=== PATIENT | female | born 1945 | race African-American/Black ===

== ENCOUNTER 2017-01-24 04:46 | Inpatient (IN) | payer MEDICARE ==
[~2017-01-24] VITALS: Ht 170.2 cm; Wt 99.8 kg
[~2017-01-24 04:46] MED LIST: ALBUTEROL2.5 MG/3 M INH; AZELASTINE137 MCG/0. NS; CARDIZEM CD180 MG ORAL; CARDIZEM60 MG ORAL; DILTIAZEM ER60 M1 ORAL; DULERA 200 MCG/13 GM IH; FLONASE1 SPRAYS NASAL; IBUPROFEN200 MG ORAL; NASONEX17 GM NASAL; PRAVACHOL20 MG ORAL; PRAVASTATIN SOD20 M1 ORAL; PREDNISONE10 MG ORAL; PROAIR HFA8.5 GM INH; RANITIDINE HCL150 MG ORAL; ROBITUSSIN COU118 M1 PO; SPIRIVA18 MCG INH
[2017-01-24 05:00] VITALS: BP 151/86
--- NOTE | 2017-01-24 05:07 | Emergency Room Report ---
History of Present Illness General Chief Complaint: Dizziness Source: Patient Present Illness HPI This is a 71-year-old female with a history of hypertension hyperlipidemia. She presents with chief complaint of dizziness. He felt unsteady on her feet. Onset for the last 8 hours. No fever or chills no nausea no vomiting. No focal deficit. This felt palpitation. Never had this problem before. No other complaint. Allergies: Coded Allergies: No Known Allergies (Unverified , 07/06/14) Patient History Past Medical History: see triage record, old chart reviewed Past Surgical History: other Pertinent Family History: none Social History: Denies: smoking Now: No Immunizations: other Reviewed Nursing Documentation: PMH: Agreed, PSxH: Agreed Nursing Documentation-PMH Past Medical History: No History, Except For Hx Cardiac Problems: No Hx Hypertension: Yes - High cholesterol Hx COPD: No Hx Diabetes: No Hx Cancer: No Hx Gastrointestinal Problems: No Hx Dialysis: No Hx Neurological Problems: No Hx Cerebrovascular Accident: No Hx Seizures: No Review of Systems Eye: Denies: blurred vision, eye pain ENT: Denies: ear pain, nose congestion, throat swelling Respiratory: Denies: cough, shortness of breath Cardiovascular: Denies: chest pain, palpitations Gastrointestinal: Denies: abdominal pain, diarrhea, nausea, vomiting Musculoskeletal: Denies: back pain, joint pain Skin: Denies: rash Neurological: Reports: dizziness, Denies: headache, numbness Endocrine: Denies: increased thirst, increased urine Hematologic/Lymphatic: Denies: easy bruising All Other Systems: negative except mentioned in HPI Physical Exam Vital Signs Date Time Temp Pulse Resp B/P Pulse Ox O2 Delivery O2 Flow Rate FiO2 01/24/17 04:53 98.4 93 23 151/86 99 Room Air vitals with hypertension Sp02 EP Interpretation: reviewed, normal General Appearance: well appearing, no apparent distress, alert Head: normocephalic, atraumatic Eyes: bilateral eye EOMI, bilateral eye PERRL ENT: hearing grossly normal, normal pharynx Neck: full range of motion, supple, no meningismus Respiratory: chest non-tender, lungs clear, normal breath sounds Cardiovascular #1: regular rate, rhythm, no murmur Gastrointestinal: normal bowel sounds, non tender, no mass, no organomegaly, no bruit, non-distended Musculoskeletal: back normal, gait/station normal, normal range of motion Psychiatric: mood/affect normal Skin: warm/dry Medical Decision Making Diagnostic Impression: Primary Impression: Atrial flutter, paroxysmal Additional Impression: Dizziness of unknown cause ER Course Patient presents with dizziness and palpitation. EKG showed paroxysmal atrial flutter. She is in sinus now. She felt better now. We'll admit for further workup. Lab Results Impression labs unremarkable EKG Diagnostic Results Rate: normal Rhythm: other - atrial flutter ST Segments: other - NSST changes Rhythm Strip Diag. Results EP Interpretation: yes Rate: 83 Rhythm: NSR, no PVC's, no ectopy Chest X-Ray Diagnostic Results EP Interpretation: Yes Findings: no consolidation, no effusion, no pneumothorax, no acute cardiopulmonary disease Number of Views: 1 CT/MRI/US Diagnostic Results CT/MRI/US Diagnostic Results : Imaging Test Ordered: Ct head Impression Read by radiologist. Neg. Last Vital Signs Date Time Temp Pulse Resp B/P Pulse Ox O2 Delivery O2 Flow Rate FiO2 01/24/17 04:53 98.4 93 23 151/86 99 Room Air Status: improved Disposition: ADMITTED INPATIENT Condition: Serious NOHEMI CRUM M.D. Jan 24, 2017 05:07
[2017-01-24 05:28] LABS: BASOPHILS % (AUTO) 1.9 % (0.0-2.0); LYMPHOCYTES % (AUTO) 48.4 % (20.0-45.0); MEAN CORPUSCULAR HGB CONC 32.4 G/DL (32.0-36.0); MEAN CORPUSCULAR VOLUME 93 FL (80-99); MEAN PLATELET VOLUME 7.6 FL (6.5-10.1); MONOCYTES % (AUTO) 4.8 % (1.0-10.0); NEUTROPHILS % (AUTO) 42.9 % (45.0-75.0); PLATELET COUNT 273 K/UL (150-450); RED BLOOD COUNT 5.21 M/UL (4.20-5.40); RED CELL DISTRIBUTION WIDTH 13.2 % (11.6-14.8); WHITE BLOOD COUNT 9.4 K/UL (4.8-10.8)
[2017-01-24 05:34] LABS: APPEARANCE,URINE CLEAR; KETONES,URINE NEGATIVE (NEGATIVE); LEUKOCYTE ESTERASE ,URINE NEGATIVE (NEGATIVE); NITRITE,URINE NEGATIVE (NEGATIVE); PH,URINE 7 (4.5-8.0); PROTEIN,URINE NEGATIVE (NEGATIVE); UROBILINOGEN,URINE NORMAL MG/DL (0.0-1.0)
[2017-01-24 05:48] LABS: TROPONIN I < 0.30 ng/mL (<=0.30)
[2017-01-24 05:49] LABS: ALANINE AMINOTRANSFERASE 20 U/L (3-33); ALBUMIN/GLOBULIN RATIO 1.3 (1.0-2.7); ANION GAP 16 (5-15); ASPARTATE AMINO TRANSFERASE 22 U/L (5-40); CALCIUM 9.1 mg/dL (8.6-10.2); CARBON DIOXIDE 26 mEQ/L (20-30); CHLORIDE 102 mEQ/L (98-107); CREATININE 0.9 mg/dL (0.5-0.9); GLOMERULAR FILTRATION RATE > 60 mL/min (>60); HEMOLYSIS 40; POTASSIUM 3.7 mEQ/L (3.4-4.9); SODIUM 144 mEQ/L (135-145); TOTAL PROTEIN 6.8 g/dL (6.6-8.7)
[2017-01-24 07:01] VITALS: BP 140/73
[2017-01-24] MEDS ORDERED: Diltiazem 25mg/5ml IV PRN (07:15)
[2017-01-24] MEDS ORDERED: Metoprolol 5mg/5ml Inj IVP PRN (07:15)
[2017-01-24] MEDS ORDERED: Morphine Sulfate 2mg/ml Inj IVP PRN (07:15)
[2017-01-24] MEDS ORDERED: Enalaprilat 2.5mg/2ml Inj IV PRN (07:15)
[2017-01-24] MEDS ORDERED: Miralax 17gm pkt ORAL PRN (07:15)
[2017-01-24] MEDS ORDERED: DuoNeb 0.5-3(2.5)mg/3ml neb HHN PRN (07:15)
[2017-01-24] MEDS ORDERED: Nitroglycerin Subl 0.4mg tab (Bottle Of 25) SL PRN (07:30)
[2017-01-24 08:00] VITALS: BP 129/74
[2017-01-24] MEDS ORDERED: Digoxin 0.5mg/2ml Inj IVP SCH (09:00)
--- NOTE | 2017-01-24 09:01 | Diagnostic Imaging Report ---
Indication: Altered mental status Technique: spiral acquisitions obtained through the brain. Angled axial and coronal 5 x 5 mm slices were reconstructed. No IV contrast utilized. Radiation dose was minimized using automated exposure control Total dose length product 1519 mGycm. CTDIvol(s) 70 mGy Comparison: 10/28/2014 FINDINGS: No acute hemorrhage or edema. No mass effect or midline shift. There is minimal age-related enlargement of the ventricles and extra axial CSF spaces. There is periventricular deep white matter ischemic change. Normal phillips-white differentiation. Visualized orbits are unremarkable. There is fairly extensive sphenoid and ethmoid sinus disease, as well as mucosal disease within the nasal fossa. There is questionably evidence of prior sinus surgery. Intact calvarium. Small subcutaneous lesion is again demonstrated in the posterior midline parietal scalp IMPRESSION: Chronic and age-related changes. Negative for acute intracranial bleed or mass effect Sinus disease, also previously demonstrated The CT scanner at [facility] is accredited by the [employer] and the scans are performed using protocols designed to limit radiation exposure to as low as reasonably achievable to attain images of sufficient resolution adequate for diagnostic evaluation
[2017-01-24] MEDS: Diltiazem CD 180mg cap ORAL SCH (09:18)
--- NOTE | 2017-01-24 10:26 | Diagnostic Imaging Report ---
Indication: Cough Technique: One view of the chest Comparison: none Findings: There is suggestion of a 2 cm nodule at the right lung base, not evident previously. The remainder of the lungs and pleural spaces are clear. The heart is upper limits normal in size. Aorta is ectatic. Impression: Possible right basilar lung nodule. Consider further evaluation with CT No acute process otherwise Dr. Leija notified at the time of interpretation
--- NOTE | 2017-01-24 11:34 | Consultation ---
History of Present Illness General Date patient seen: Jan 24, 2017 Chief Complaint: Dizziness Referring physician: Dr. Rowan Reason for Consultation: Pulmonary nodule Present Illness HPI 71-year-old female with PMHx of hypertension hyperlipidemia, ? asthma presented to ER with chief complaint of dizziness. He felt unsteady on her feet. Onset for the last 8 hours. She had Afibe on monitor in ER, but then it converted to sinus while in ER. No fever or chills no nausea no vomiting. No focal deficit. She is asymptomatic now. Her initial cxr showed that she has a pulmonary nodule on RLL. Allergies: Coded Allergies: No Known Allergies (Unverified , 07/06/14) Medication History Scheduled Albuterol Sulfate* (Proair Hfa*), 2 PUFFS INH BID, (Reported) Azelastine Hcl (Azelastine Hcl), 137 MCG NS NEEDED, (Reported) Diltiazem Hcl* (Cardizem*), 60 MG ORAL Q12HR, (Reported) Diltiazem Hcl* (Cardizem Cd*), 180 MG ORAL DAILY, (Reported) Guaifenesin/D-Methorphan Hb/Pe (Robitussin Cough-Cold Cf Liq), 118 ML PO Q4HR Mometasone Furoate (Nasonex), 2 SPRAYS NASAL DAILY, (Reported) Pravastatin Sod* (Pravachol*), 40 MG ORAL BEDTIME, (Reported) Prednisone* (Prednisone*), 10 MG ORAL DAILY, (Reported) Ranitidine Hcl* (Zantac*), 150 MG ORAL TWICE A DAY Tiotropium Acton* (Spiriva*), 1 PUFF INH DAILY, (Reported) Scheduled PRN Albuterol Sulfate* (Albuterol Sulfate Hhn*), 3 ML INH Q4H PRN for Shortness of Breath, (Reported) Fluticasone Propionate (Fluticasone Propionate), 1 SPRAY NASAL DAILY PRN for Shortness of Breath, (Reported) Ibuprofen (Ibuprofen*), 800 MG ORAL PRN PRN for For Pain, (Reported) Patient History Healthcare decision maker Resuscitation status Advanced Directive on File Past Medical/Surgical History Past Medical/Surgical History: (1) HTN (hypertension) Review of Systems All Other Systems: negative except mentioned in HPI Physical Exam General Appearance: WD/WN, no apparent distress Lines, tubes and drains: peripheral HEENT: normocephalic, atraumatic Neck: non-tender, normal alignment Respiratory/Chest: chest wall non-tender, lungs clear Cardiovascular/Chest: normal peripheral pulses, normal rate Abdomen: normal bowel sounds, non tender Genitourinary/Rectal: normal genital exam Last 24 Hour Vital Signs Date Time Temp Pulse Resp B/P Pulse Ox O2 Delivery O2 Flow Rate FiO2 01/24/17 09:18 84 01/24/17 09:18 84 129/74 01/24/17 08:00 97.7 84 17 129/74 97 Room Air 01/24/17 07:49 98.2 76 19 140/73 100 Room Air 01/24/17 07:01 98.2 76 19 140/73 100 Room Air 01/24/17 05:00 98.4 93 23 151/86 99 Room Air 01/24/17 04:53 98.4 93 23 151/86 99 Room Air Intake and Output 01/23/17 01/24/17 19:00 07:00 Intake Total 1000 ml Balance 1000 ml Intake IV Total 1000 ml # Voids 1 Laboratory Tests Test 01/24/17 05:10 01/24/17 05:12 White Blood Count 9.4 K/UL (4.8-10.8) Red Blood Count 5.21 M/UL (4.20-5.40) Hemoglobin 15.6 G/DL (12.0-16.0) Hematocrit 48.2 % (37.0-47.0) H Mean Corpuscular Volume 93 FL (80-99) Mean Corpuscular Hemoglobin 30.0 PG (27.0-31.0) Mean Corpuscular Hemoglobin Concent 32.4 G/DL (32.0-36.0) Red Cell Distribution Width 13.2 % (11.6-14.8) Platelet Count 273 K/UL (150-450) Mean Platelet Volume 7.6 FL (6.5-10.1) Neutrophils (%) (Auto) 42.9 % (45.0-75.0) L Lymphocytes (%) (Auto) 48.4 % (20.0-45.0) H Monocytes (%) (Auto) 4.8 % (1.0-10.0) Eosinophils (%) (Auto) 2.0 % (0.0-3.0) Basophils (%) (Auto) 1.9 % (0.0-2.0) Sodium Level 144 mEQ/L (135-145) Potassium Level 3.7 mEQ/L (3.4-4.9) Chloride Level 102 mEQ/L (98-107) Carbon Dioxide Level 26 mEQ/L (20-30) Anion Gap 16 (5-15) H Blood Urea Nitrogen 12 mg/dL (7-23) Creatinine 0.9 mg/dL (0.5-0.9) Estimat Glomerular Filtration Rate > 60 mL/min (>60) Glucose Level 101 mg/dL (74-106) Calcium Level 9.1 mg/dL (8.6-10.2) Total Bilirubin 0.8 mg/dL (0.0-1.2) Aspartate Amino Transf (AST/SGOT) 22 U/L (5-40) Alanine Aminotransferase (ALT/SGPT) 20 U/L (3-33) Alkaline Phosphatase 60 U/L (35-104) Troponin I < 0.30 ng/mL (<=0.30) Total Protein 6.8 g/dL (6.6-8.7) Albumin 3.9 g/dL (3.5-5.2) Globulin 2.9 g/dL Albumin/Globulin Ratio 1.3 (1.0-2.7) Urine Color Pale yellow Urine Appearance Clear Urine pH 7 (4.5-8.0) Urine Specific [place] 1.010 (1.005-1.035) Urine Protein Negative (NEGATIVE) Urine Glucose (UA) Negative (NEGATIVE) Urine Ketones Negative (NEGATIVE) Urine Occult Blood Negative (NEGATIVE) Urine Nitrite Negative (NEGATIVE) Urine Bilirubin Negative (NEGATIVE) Urine Urobilinogen Normal MG/DL (0.0-1.0) Urine Leukocyte Esterase Negative (NEGATIVE) Height (Feet): 5 Height (Inches): 7.00 Weight (Pounds): 220 Medications Current Medications Medications (Trade) Dose Ordered Sig/Joseph Route PRN Reason Start Time Stop Time Status Last Admin Dose Admin Acetaminophen (Tylenol) 650 mg Q4H PRN ORAL T>100.5 01/24/17 07:15 02/23/17 07:14 Albuterol/ Ipratropium (DuoNeb 0.5-3(2.5)mg/3ml) 3 ml Q4H PRN HHN Shortness of Breath 01/24/17 07:15 01/29/17 07:14 Digoxin (Lanoxin) 0.25 mg DAILY IVP 01/24/17 09:00 02/23/17 08:59 01/24/17 09:18 Diltiazem HCl (Cardizem CD) 180 mg DAILY ORAL 01/24/17 09:00 02/23/17 08:59 01/24/17 09:18 Diltiazem HCl (Cardizem) 10 mg EVERY HOUR PRN IV heart rate more than 120 BPM 01/24/17 07:15 02/23/17 07:14 Enalaprilat (Vasotec) 2.5 mg Q6H PRN IV SBP>160 01/24/17 07:15 02/23/17 07:14 Metoprolol Tartrate (Lopressor) 5 mg EVERY HOUR PRN IVP heart rate more than 140 01/24/17 07:15 02/23/17 07:14 Morphine Sulfate (Morphine Sulfate) 2 mg Q4H PRN IVP Severe Pain (Pain Scale 7-10) 01/24/17 07:15 01/31/17 07:14 Nitroglycerin (Ntg) 0.4 mg Q5MIN X 3 DOSES PRN SL Prn Chest Pain 01/24/17 07:30 02/23/17 07:29 Ondansetron HCl (Zofran) 4 mg Q6H PRN IVP Nausea & Vomiting 01/24/17 07:15 02/23/17 07:14 Pantoprazole (Protonix) 40 mg DAILY ORAL 01/24/17 09:00 02/23/17 08:59 01/24/17 09:18 Polyethylene Glycol (Miralax) 17 gm DAILYPRN PRN ORAL Constipation 01/24/17 07:15 02/23/17 07:14 Pravastatin Sodium (Pravachol) 40 mg BEDTIME ORAL 01/24/17 21:00 02/23/17 20:59 Temazepam (Restoril) 15 mg HSPRN PRN ORAL Insomnia 01/24/17 21:00 01/31/17 20:59 Assessment/Plan Problem List: (1) Atrial flutter, paroxysmal ICD Codes: I48.92 - Unspecified atrial flutter SNOMED: 282513200 (2) Pulmonary nodule ICD Codes: R91.1 - Solitary pulmonary nodule SNOMED: 584464090 (3) HTN (hypertension) ICD Codes: I10 - Essential (primary) hypertension SNOMED: 30077612 Assessment/Plan CT chest with contrast echo cardio evaluation monitor in teli dvt prophylaxis Cardio called SASHA HERNANDEZ Jan 24, 2017 11:34
[2017-01-24 12:00] VITALS: BP 124/81
--- NOTE | 2017-01-24 14:00 | History & Physical ---
History and Physical History & Physicial Dictated for Int Med-Dr Leija no. [id number]. DUSTY BARBA Jan 24, 2017 13:59
--- NOTE | 2017-01-24 14:25 | Diagnostic Imaging Report ---
Clinical Indication: Evaluation of abnormality seen on recent chest radiograph Technique: IV administration nonionic contrast. Spiral acquisition obtained through the chest. Multiplanar reconstructions generated. Total dose length product 874 mGycm. CTDIvol(s) 8, 48, 26 mGy. Dose reduction achieved using automated exposure control Comparison: Reference made to chest radiograph of 01/24/2017 as well as to an abdomen pelvis CT dated 09/22/2016 Findings: At the right lung base, there is a parenchymal opacity which measures approximately 3.3 x 1 cm, by 2.2 cm craniocaudad. This presumably explains the finding demonstrated on recent chest radiograph. This is identical appearance to and unchanged in size from that seen on the abdomen pelvis CT of 09/22/2016, which included the same portion of the lung bases. Medial atelectasis or scarring on the right appears similar to the previous exam. There is minimal basilar atelectasis on the left. The remainder of the lungs and pleural spaces are clear. The heart size is normal. No pericardial effusion. No mediastinal or hilar mass or adenopathy. There is a 12 mm hypoattenuating nodule in the left thyroid lower pole. No axillary or chest wall mass or adenopathy. The esophagus is unremarkable. The bones are unremarkable. The included upper abdomen demonstrates possible colonic diverticulosis, otherwise unremarkable. Impression: 3.3 x 1 x 2.2 cm opacity at the right lung base, corresponding to the radiographic abnormality. Appearance is more suggestive of chronic scarring than mass. Stability as compared to an abdomen pelvis CT of 4 months earlier suggests but does not confirm benignity. Recommend further followup CT at 6 months Minimal basilar atelectasis elsewhere. Otherwise clear lungs and pleural spaces 12 mm left lower pole thyroid nodule. Consider further evaluation with thyroid ultrasound Incidental finding of colonic diverticulosis The CT scanner at [facility] is accredited by the [employer] and the scans are performed using protocols designed to limit radiation exposure to as low as reasonably achievable to attain images of sufficient resolution adequate for diagnostic evaluation.
[2017-01-24 16:00] VITALS: BP 123/89
--- NOTE | 2017-01-24 19:18 | History and Physical Report ---
DATE OF ADMISSION: 01/24/2017 CHIEF COMPLAINT: The patient is a 71-year-old female, who presents with a chief complaint of dizziness. HISTORY OF PRESENT ILLNESS: This began last evening around 8 or 9 p.m. The patient states she began to feel dizzy. The patient states that she is "unsteady on her feet." The patient denies dizziness while lying or sitting. The patient states she only feels unsteady while standing. The patient denies loss of consciousness. The patient presented to [place] emergency room. The patient was admitted for vertigo to rule out acute coronary syndrome versus acute cerebrovascular accident. REVIEW OF SYSTEMS: Constitutional: The patient denies weight loss or weight gain. The patient denies fevers or chills. HEENT: The patient denies ear or throat pain. Cardiovascular: The patient denies palpitations or chest pain. Chest: The patient denies wheezes or shortness of breath. Abdominal: The patient denies nausea, vomiting, diarrhea, or constipation. Genitourinary: The patient denies dysuria or increased frequency of urination. Neuromuscular: The patient complains of dizziness as above. The patient denies seizures or generalized weakness. PAST MEDICAL HISTORY: Significant for, 1. Hypertension 2. Hypercholesterolemia. 3. Allergic rhinitis. 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 CURRENT MEDICATIONS: 1. Albuterol metered dose inhaler 2 puffs p.o. q.i.d. p.r.n. 2. Zyrtec 2 sprays in each nostril twice daily p.r.n. 3. Cardizem 180 mg p.o. daily. 4. Flonase 2 sprays in each nostril twice daily. 5. Ibuprofen 800 mg one tablet p.o. q.6 h. 6. Pravastatin 40 mg one tablet p.o. at bedtime. 7. Prednisone 10 mg p.o. p.r.n. 8. Zantac 150 mg one tablet p.o. twice daily. 9. Spiriva 18 mcg one puff p.o. daily. ALLERGIES: No known drug allergies. SOCIAL HISTORY: The patient is a . The patient lives alone. The patient denies tobacco or alcohol use. PHYSICAL EXAMINATION: VITAL SIGNS: Temperature is 98.4, respirations 23, pulse 93, and blood pressure 151/86. GENERAL: The patient is well-developed, well-nourished, female, in no apparent distress. HEENT: Eyes, pupils are equal and responsive to light and accommodation. Extraocular movements are intact. NECK: Supple without lymphadenopathy. CHEST: Lungs are clear to auscultation bilaterally without wheezes or rales. CARDIOVASCULAR: Regular rhythm and rate. S1 and S2 normal without murmurs, rubs, or gallops. ABDOMEN: Soft, nontender, and nondistended. Positive bowel sounds. No evidence of hepatosplenomegaly. Currently, no rebound or guarding noted. EXTREMITIES: Negative for clubbing, cyanosis, or edema. RECTAL/GENITAL: Refused. NEUROLOGIC: Cranial nerves II through XII are grossly intact without focal deficits. Motor strength is 5/5 bilaterally. Deep tendon reflexes are 2+ plantar. LABORATORY AND DIAGNOSTIC DATA: WBC 9.5, hemoglobin 15.5, hematocrit 48.2, and platelets 272,000. Sodium 144, potassium 3.7, chloride 102, CO2 26, BUN 12, creatinine 0.9, and glucose 101. Urinalysis was within normal limits. A CT scan of the brain revealed normal age-related changes, otherwise, no acute infarct or hemorrhage. ASSESSMENT: This is a 71-year-old female. 1. Vertigo. 2. Hypertension. 3. Hypercholesterolemia. 4. Allergic rhinitis. 5. Asthma. TREATMENT: 1. Vertigo. Cardiology consultation is pending with Dr. Harshad Carrasco. A Neurology consultation is pending with Dr. Silva. Serial troponin levels will be run. An echocardiogram is pending. Carotid duplex and Dopplers are pending. 2. Hypertension. Continue Cardizem as above. 3. Hypercholesteremia. Continue Pravachol as above. 4. Allergic rhinitis. 5. Asthma. Kyle Rowan M.D. DR: KARL JOB#: [id number] CC:
[2017-01-24 20:10] VITALS: BP 120/79
--- NOTE | 2017-01-24 20:31 | Cardiology Progress Note ---
Assessment/Plan Assessment/Plan The patient is seen and examined, full consult note will be dictated. Objective Last 24 Hour Vital Signs Date Time Temp Pulse Resp B/P Pulse Ox O2 Delivery O2 Flow Rate FiO2 01/24/17 20:10 98.0 90 20 120/79 100 Room Air 01/24/17 16:00 98.6 83 18 123/89 98 Room Air 01/24/17 16:00 85 01/24/17 12:00 98.4 86 18 124/81 98 Room Air 01/24/17 12:00 86 01/24/17 09:18 84 01/24/17 09:18 84 129/74 01/24/17 08:00 97.7 84 17 129/74 97 Room Air 01/24/17 08:00 83 01/24/17 07:49 98.2 76 19 140/73 100 Room Air 01/24/17 07:01 98.2 76 19 140/73 100 Room Air 01/24/17 05:00 98.4 93 23 151/86 99 Room Air 01/24/17 04:53 98.4 93 23 151/86 99 Room Air Intake and Output 01/23/17 01/24/17 19:00 07:00 Intake Total 1000 ml Balance 1000 ml IV Total 1000 ml # Voids 1 Laboratory Tests Test 01/24/17 05:10 01/24/17 05:12 White Blood Count 9.4 K/UL (4.8-10.8) Red Blood Count 5.21 M/UL (4.20-5.40) Hemoglobin 15.6 G/DL (12.0-16.0) Hematocrit 48.2 % (37.0-47.0) H Mean Corpuscular Volume 93 FL (80-99) Mean Corpuscular Hemoglobin 30.0 PG (27.0-31.0) Mean Corpuscular Hemoglobin Concent 32.4 G/DL (32.0-36.0) Red Cell Distribution Width 13.2 % (11.6-14.8) Platelet Count 273 K/UL (150-450) Mean Platelet Volume 7.6 FL (6.5-10.1) Neutrophils (%) (Auto) 42.9 % (45.0-75.0) L Lymphocytes (%) (Auto) 48.4 % (20.0-45.0) H Monocytes (%) (Auto) 4.8 % (1.0-10.0) Eosinophils (%) (Auto) 2.0 % (0.0-3.0) Basophils (%) (Auto) 1.9 % (0.0-2.0) Sodium Level 144 mEQ/L (135-145) Potassium Level 3.7 mEQ/L (3.4-4.9) Chloride Level 102 mEQ/L (98-107) Carbon Dioxide Level 26 mEQ/L (20-30) Anion Gap 16 (5-15) H Blood Urea Nitrogen 12 mg/dL (7-23) Creatinine 0.9 mg/dL (0.5-0.9) Estimat Glomerular Filtration Rate > 60 mL/min (>60) Glucose Level 101 mg/dL (74-106) Calcium Level 9.1 mg/dL (8.6-10.2) Total Bilirubin 0.8 mg/dL (0.0-1.2) Aspartate Amino Transf (AST/SGOT) 22 U/L (5-40) Alanine Aminotransferase (ALT/SGPT) 20 U/L (3-33) Alkaline Phosphatase 60 U/L (35-104) Troponin I < 0.30 ng/mL (<=0.30) Total Protein 6.8 g/dL (6.6-8.7) Albumin 3.9 g/dL (3.5-5.2) Globulin 2.9 g/dL Albumin/Globulin Ratio 1.3 (1.0-2.7) Urine Color Pale yellow Urine Appearance Clear Urine pH 7 (4.5-8.0) Urine Specific [place] 1.010 (1.005-1.035) Urine Protein Negative (NEGATIVE) Urine Glucose (UA) Negative (NEGATIVE) Urine Ketones Negative (NEGATIVE) Urine Occult Blood Negative (NEGATIVE) Urine Nitrite Negative (NEGATIVE) Urine Bilirubin Negative (NEGATIVE) Urine Urobilinogen Normal MG/DL (0.0-1.0) Urine Leukocyte Esterase Negative (NEGATIVE) KELVIN LUQUE Jan 24, 2017 20:31
--- NOTE | 2017-01-24 23:58 | Consultation ---
DATE OF CONSULTATION: 01/24/2017 CARDIOLOGY CONSULTATION CONSULTING PHYSICIAN: Harshad Carrasco M.D. REFERRING PHYSICIAN: Michelle Jerry M.D. ADDITIONAL REFERRING PHYSICIAN: Gonzalez Leija M.D. REASON FOR CONSULTATION: Management of presyncope. HISTORY OF PRESENT ILLNESS: This is a very pleasant, 71-year-old lady, who presents to the hospital with complaints of dizzy spell. The patient states that around 8 or 9 p.m. of 01/23/2017, she started to have lightheadedness, dizziness, unsteady on feet. She did not have any loss of consciousness. Did not have any palpitation, chest pain, or shortness of breath at that time. She presents to the hospital for further evaluation and management. On arrival to the hospital, initial blood pressure was 151/86 and pulse of 93. A 12-lead electrocardiogram showed no ST and T-wave abnormalities. She was admitted to telemetry for further evaluation and management. Cardiology consultation was made at the request of Dr. Jerry. The patient denies any prior history of coronary artery disease, congestive heart failure, or cardiac arrhythmias. She states that she has been experiencing shortness of breath on long distance walking. PAST MEDICAL HISTORY: Including hypertension and hypercholesterolemia. PAST SURGICAL HISTORY: Removal of a benign lung tumor. MEDICATIONS: Albuterol inhaler 2 puffs per inhaler twice daily, azelastine 137 mcg as needed, diltiazem 60 mg p.o. q.12 hours, fluticasone 1 nasal spray daily each p.r.n. shortness of breath, Robitussin for cough and cold, ibuprofen 800 mg p.r.n. pain, Nasonex, Pravachol 40 mg p.o. q.h.s., prednisone 10 mg p.o. daily, ranitidine 150 mg twice daily, and Spiriva 1 puff inhaler daily. SOCIAL HISTORY: Smoked when she was a teenager just about 9 to 10 years about a few cigarettes per day. Denies any history of alcohol or illicit drug use. FAMILY HISTORY: Mother of massive heart attack in her 60s and also history of cancer. Lost also her son due to massive heart attack. REVIEW OF SYSTEMS: HEENT: Complains of dizziness, lightheadedness and presyncope. Denies any headache. Constitutional: Denies any fever, chills, night sweats, or weight loss. Cardiovascular: Denies any chest pain. She has got shortness of breath with exertion. Denies any PND, orthopnea, leg swelling, palpitation, or syncope. Pulmonary: Denies any cough, hemoptysis, or wheezing. Gastrointestinal: Denies any nausea, vomiting, diarrhea, constipation, abdominal pain, or GI bleed. Genitourinary: Denies any hematuria, dysuria, or incontinence. Neurologic: Denies any motor dysfunction, sensory deficit, or altered speech. PHYSICAL EXAMINATION: VITAL SIGNS: Blood pressure is 151/86, pulse of 93, respirations of 22, pulse ox 99%, and temperature of 98.4 degrees Fahrenheit. GENERAL: The patient is a very pleasant, 71-year-old female, in no apparent respiratory distress. Alert and oriented x4. HEENT: Atraumatic and normocephalic. Anicteric. Pupils are equal, round, and reactive to light and accommodation. Extraocular muscle intact. NECK: JVP is less than 5 cm. No carotid bruits. Carotid upstrokes 2+ bilaterally. CARDIOVASCULAR: Normal S1 and S2. Regular rate and rhythm. No murmurs, gallops, or rubs. PMI is at fourth intercostal space at the midclavicular line. LUNGS: Clear to auscultation bilaterally. ABDOMEN: Soft, nontender, and nondistended. No hepatosplenomegaly. Positive bowel sounds. EXTREMITIES: No evidence of edema, clubbing, or cyanosis. LABORATORY AND DIAGNOSTIC DATA: WBC 9.4, hemoglobin 15.6, hematocrit 48.2, and platelet count 273,000. Sodium 144, potassium 3.7, chloride 102, bicarbonate 26, BUN 12, creatinine 0.9, and glucose is 101. Calcium is 9.1. Troponin I is less than 0.3. A 12-lead electrocardiogram showed sinus rhythm with heart rate of 84 with left axis deviation and left ventricular hypertrophy by voltage criteria. Head CT showed chronic and age-related changes, negative for acute intracranial bleed or mass effect and sinus disease. Chest x-ray showed right basilar lung nodule, no acute processes. CT of chest showed opacity in the right lung base suggestive of chronic scarring and mass, left thyroid nodule. A 2D echocardiography shows normal LV systolic function, LVEF of 55% to 60%, mild LVH, grade 1 LV diastolic dysfunction, and normal right ventricular systolic pressure. ASSESSMENT AND PLAN: The patient is a very pleasant, 71-year-old female, seen in Cardiology consultation at the request of Dr. Leija. 1. Presyncope. This could be due to blood pressure over medication. We would like to place a hold on medication or hypovolemia. I would agree with intravenous hydration. We will continue with low-dose diltiazem. There is no need for digoxin therapy at this time. 2. It is not quite sure whether the patient had any atrial arrhythmia. The emergency room note has mentioned atrial flutter, however, the electrocardiogram does not reveal atrial flutter. 3. We will continue to monitor the patient's rhythm in this hospitalization. 4. History of hypercholesterolemia. We will continue with the patient's pravastatin. I would like to thank, Dr. Leija and Rosalino, for your kind consultation. Harshad Carrasco M.D. DR: CALE JOB#: [id number] CC:
[2017-01-25 04:25] VITALS: BP 118/80
[2017-01-25 07:57] VITALS: BP 114/66
[2017-01-25 08:02] LABS: EOSINOPHILS % (AUTO) 2.6 % (0.0-3.0); MEAN CORPUSCULAR HEMOGLOBIN 30.1 PG (27.0-31.0); MEAN CORPUSCULAR HGB CONC 32.4 G/DL (32.0-36.0); MEAN CORPUSCULAR VOLUME 93 FL (80-99); MEAN PLATELET VOLUME 8.2 FL (6.5-10.1); MONOCYTES % (AUTO) 9.6 % (1.0-10.0); NEUTROPHILS % (AUTO) 45.9 % (45.0-75.0); PLATELET COUNT 241 K/UL (150-450); RED BLOOD COUNT 4.71 M/UL (4.20-5.40); RED CELL DISTRIBUTION WIDTH 13.1 % (11.6-14.8)
[2017-01-25 08:23] LABS: TROPONIN I < 0.30 ng/mL (<=0.30)
[2017-01-25 08:27] LABS: CHOLESTEROL 204 mg/dL (< 200); CRP QUANT < 0.3 mg/dL (< 0.5); HEMOLYSIS 3; LDL CHOLESTEROL (CALC.) 110 mg/dL (60-99)
[2017-01-25 08:31] LABS: PROTHROMBIN TIME 10.3 SEC (9.30-11.50)
[2017-01-25] MEDS: Diltiazem CD 180mg cap ORAL SCH (08:54)
--- NOTE | 2017-01-25 09:45 | Cardiology Report ---
APPROVED REPORT EXAM: Two-dimensional and M-mode echocardiogram with Doppler and color Doppler. INDICATION Left ventricular function M-Mode DIMENSIONS IVSd0.9 (0.7-1.1cm)Left Atrium (MM)1.3 (1.6-4.0cm) LVDd3.7 (3.5-5.6cm)Aortic Root3.2 (2.0-3.7cm) PWd0.7 (0.7-1.1cm)Aortic Cusp Exc.2.1 (1.5-2.0cm) LVDs1.9 (2.5-4.0cm) PWs0.8 cm Technically difficult study due to poor acoustic windows. Normal left ventricular chamber size, systolic function and wall motion. Left ventricular ejection fraction estimated to be 55-60%. Mild left ventricular hypertrophy. No evidence of pericardial fat or effusion. All other cardiac chamber sizes are within normal limits. Focal aortic valve sclerosis with adequate cusp excursion Thickened mitral valve leaflets with normal excursion. Mitral annulus and aortic root calcification. Pulmonic valve not well visualized. Normal tricuspid valve structure. IVC is normal in size with physiologic collapse. A color flow and spectral Doppler study was performed and revealed: No aortic regurgitation. No mitral regurgitation. Left ventricular diastolic dysfunction grade 1. No tricuspid regurgitation.
[2017-01-25] MEDS ORDERED: Tubing IV Secondary IV ONE (09:46)
[2017-01-25 11:20] VITALS: BP 133/79
--- NOTE | 2017-01-25 11:28 | Consultation ---
Consult Note Consult Note NEUROLOGY CONSULTATION: Full note dictated #[id number] 71 y/o, RH, BF with PH of HTN, DL, and allergies. On 01/23/17 at ~ 8PM got up from bed to go to the bathroom and felt dizzy. The dizzy sensation was a sensation of being unsteady and off balance. The problem felt better and she went to sleep. On awaking at ~ 4 AM on 01/24/17 she felt a similar more intense sensation and thus came to the [facility]. Today she feels normal. ON EXAM: Problems with memory. Problems with math and VS function. Globally diminished reflexes. IMPRESSION: 1. Episode of unsteadiness on feet which has now resolved. Unclear if it was due to labyrinthine dysfunction or other reasons. 2. Cognitive dysfunction - etiology unclear. REC: 1. W/U for vertigo, cognitive dysfunction and neuropathy. 2. Increase activity as tolerated. Akila Ochoa M.D., M.S.P.Atiya. AKILA OCHOA Jan 25, 2017 11:28
[2017-01-25 11:50] LABS: HEMOGLOBIN A1C 5.4 % (< 6.0)
[2017-01-25 15:23] VITALS: BP 100/59
--- NOTE | 2017-01-25 16:58 | Internal Med Progress Note ---
Subjective Date of Service: Jan 25, 2017 Physician Name Kyle Barba Attending Physician Gonzalez Leija MD Current Medications Medications (Trade) Dose Ordered Sig/Joseph Route PRN Reason Start Time Stop Time Status Last Admin Dose Admin Acetaminophen (Tylenol) 650 mg Q4H PRN ORAL T>100.5 01/24/17 07:15 02/23/17 07:14 Albuterol/ Ipratropium (DuoNeb 0.5-3(2.5)mg/3ml) 3 ml Q4H PRN HHN Shortness of Breath 01/24/17 07:15 01/29/17 07:14 Diltiazem HCl (Cardizem CD) 180 mg DAILY ORAL 01/24/17 09:00 02/23/17 08:59 01/25/17 08:54 Diltiazem HCl (Cardizem) 10 mg EVERY HOUR PRN IV heart rate more than 120 BPM 01/24/17 07:15 02/23/17 07:14 Enalaprilat (Vasotec) 2.5 mg Q6H PRN IV SBP>160 01/24/17 07:15 02/23/17 07:14 Metoprolol Tartrate (Lopressor) 5 mg EVERY HOUR PRN IVP heart rate more than 140 01/24/17 07:15 02/23/17 07:14 Morphine Sulfate (Morphine Sulfate) 2 mg Q4H PRN IVP Severe Pain (Pain Scale 7-10) 01/24/17 07:15 01/31/17 07:14 Nitroglycerin (Ntg) 0.4 mg Q5MIN X 3 DOSES PRN SL Prn Chest Pain 01/24/17 07:30 02/23/17 07:29 Ondansetron HCl (Zofran) 4 mg Q6H PRN IVP Nausea & Vomiting 01/24/17 07:15 02/23/17 07:14 Pantoprazole (Protonix) 40 mg DAILY ORAL 01/24/17 09:00 02/23/17 08:59 01/25/17 08:53 Polyethylene Glycol (Miralax) 17 gm DAILYPRN PRN ORAL Constipation 01/24/17 07:15 02/23/17 07:14 Pravastatin Sodium (Pravachol) 40 mg BEDTIME ORAL 01/24/17 21:00 02/23/17 20:59 01/24/17 20:54 Temazepam (Restoril) 15 mg HSPRN PRN ORAL Insomnia 01/24/17 21:00 01/31/17 20:59 Allergies: Coded Allergies: No Known Allergies (Unverified , 07/06/14) Constitutional: Reports: no symptoms HEENT: Reports: no symptoms Cardiovascular: Reports: no symptoms Respiratory: Reports: no symptoms Gastrointestinal/Abdominal: Reports: no symptoms 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: Reports: no symptoms Subjective 71 YO F admitted with vertigo. Cover for Int Med-Dr Leija. Objective Last Vital Signs Date Time Temp Pulse Resp B/P Pulse Ox O2 Delivery O2 Flow Rate FiO2 01/25/17 16:00 78 01/25/17 15:23 97.2 18 100/59 100 Room Air Laboratory Tests Test 01/25/17 06:45 01/25/17 11:45 White Blood Count 7.0 K/UL (4.8-10.8) Red Blood Count 4.71 M/UL (4.20-5.40) Hemoglobin 14.2 G/DL (12.0-16.0) Hematocrit 43.7 % (37.0-47.0) Mean Corpuscular Volume 93 FL (80-99) Mean Corpuscular Hemoglobin 30.1 PG (27.0-31.0) Mean Corpuscular Hemoglobin Concent 32.4 G/DL (32.0-36.0) Red Cell Distribution Width 13.1 % (11.6-14.8) Platelet Count 241 K/UL (150-450) Mean Platelet Volume 8.2 FL (6.5-10.1) Neutrophils (%) (Auto) 45.9 % (45.0-75.0) Lymphocytes (%) (Auto) 40.0 % (20.0-45.0) Monocytes (%) (Auto) 9.6 % (1.0-10.0) Eosinophils (%) (Auto) 2.6 % (0.0-3.0) Basophils (%) (Auto) 2.0 % (0.0-2.0) Erythrocyte Sedimentation Rate 11 MM/HR (0-30) Prothrombin Time 10.3 SEC (9.30-11.50) Prothromb Time International Ratio 1.0 (0.9-1.1) Activated Partial Thromboplast Time 23 SEC (23-33) Hemoglobin A1c 5.4 % (< 6.0) Troponin I < 0.30 ng/mL (<=0.30) C-Reactive Protein, Quantitative < 0.3 mg/dL (< 0.5) Triglycerides Level 129 mg/dL (< 150) Cholesterol Level 204 mg/dL (< 200) H LDL Cholesterol 110 mg/dL (60-99) H HDL Cholesterol 68 mg/dL (> 60) H Cholesterol/HDL Ratio 3.0 (3.3-4.4) L Vitamin B12 Level 760 pg/mL (211-946) Thyroid Stimulating Hormone (TSH) 1.350 uIU/mL (0.300-4.500) Total Protein (PEP) Pending Albumin (PEP) Pending Globulin (PEP) Pending Albumin/Globulin Ratio Pending [id number] Pending [id number]-[id number] Pending Beta Globulins Pending Beta Gamma Globulin Pending PEP Abnormal Protein Bands Pending Protein Electrophoresis Interpret Pending Vitamin D 25-Hydroxy Pending 25-Hydroxy Vitamin D2 Pending 25-Hydroxy Vitamin D3 Pending Folate Pending Rapid Plasma Reagin Pending Intake and Output 01/24/17 01/25/17 19:00 07:00 Intake Total 640 ml Balance 640 ml Intake Oral 640 ml # Voids 2 2 Objective General: alert, cooperative, no distress, appears stated age Head: normocephalic, without obvious abnormality, atraumatic Eyes: conjunctivae/corneas clear. PERRL, EOM's intact Throat: lips, mucosa, and tongue normal. MMM Neck: supple, symmetrical, trachea midline, and no JVD Lungs: clear to auscultation bilaterally Heart: regular rate and rhythm, S1, S2 normal, no murmur, click, rub or gallop Abdomen: soft, non-tender, non-distended, bowel sounds normal; no masses or organomegaly Extremities: extremities normal, atraumatic, no cyanosis or edema Pulses: 2+ and symmetric Skin: skin color, texture, turgor normal; no rashes or lesions Neurologic: grossly normal, no focal deficits Assessment/Plan Problem List: (1) Vertigo Assessment & Plan: neuro and cardiology workup in progress. (2) Allergic rhinitis (3) Asthma (4) Hypercholesteremia (5) HTN (hypertension) Assessment & Plan: Continue cardizem, vasotec and lopressor per cardiology. Status: not improved KYLE BARBA Jan 25, 2017 16:58
--- NOTE | 2017-01-25 17:18 | Consultation ---
/ DATE OF CONSULTATION: 01/25/2017 NEUROLOGY CONSULTATION REQUESTING PHYSICIANS: Gonzalez Leija M.D. & Kyle Rowan M.D. HISTORY: Ms. Maryam Prieto is a 71-year-old, right-handed, black lady, who does have a past history of hypertension, dyslipidemia, and allergies. She was functioning relatively well until approximately 8 p.m. on 01/23/2017 when she got up from bed to go to the bathroom and felt dizzy. The dizzy sensation was a sensation of being unsteady on her feet and being off balance. She felt like she was moving from side to side and had to hold onto the wall to get to the bathroom. The problem continued, but then started to improve. As a result of that she went to sleep. On awakening at approximately 4 a.m. on 01/24/2017, she felt a similar more intense sensation when she was trying to go to the bathroom. As a result of that, she was brought into the [facility] emergency room and has since been admitted. On 01/24/17 she continued to feel this sensation whenever she would get up, but on 01/25/17 the sensation has gone away. She feels that she is back to her normal self. She denies any associated ringing in the ears, hearing loss, weakness on one side or the other, numbness on one side or the other, problems with speech, problems with language, problems with vision, problems with memory, or any other neurological symptoms. PAST MEDICAL HISTORY: Significant for high blood pressure, dyslipidemia and allergies. FAMILY HISTORY: Significant for high blood pressure in other family members. PERSONAL HISTORY: Home: She lives alone at home, but her children come and spend time with her. 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 Habits: She denies the use of alcohol tobacco or illicit drugs. MEDICATIONS: Present medications include pravastatin, temazepam, diltiazem, digoxin, pantoprazole, nitroglycerin, DuoNeb, Tylenol p.r.n., morphine p.r.n., MiraLAX p.r.n., Zofran p.r.n., Vasotec p.r.n. and metoprolol p.r.n. PHYSICAL EXAMINATION: GENERAL: She is a well-developed, well-nourished, obese, black lady, lying in bed, in no acute distress. VITAL SIGNS: Pulse 84 per minute and regular, blood pressure 114/66 mm Hg, respirations 18 per minute, and temperature 96.1 degrees Fahrenheit. HEAD: Normocephalic and atraumatic. EENT: Examination benign. NECK: No neck rigidity was observed. NEUROLOGIC EXAMINATION: MENTAL STATUS EXAMINATION: She was alert and awake. She was oriented to person, place, and time except for the exact date. She was able to recall 3/3 words immediately, but could only remember 2/3 words in 1 minute and 3 minutes on the first trial. On the second trial, she was able to remember all 3 words in 1 and 3 minutes. She was able to remember presidents Trump and Obama, but could not remember presidents prior to that. Her mathematical skills were impaired. Her visuospatial function was also impaired. SPEECH: She had no dysarthria. LANGUAGE: She had no aphasia. CRANIAL NERVE EXAMINATION: II: The visual thomson were intact to confrontation testing. III, IV & : The external ocular movements were full and the pupils 3 mm in diameter, equal, round, regular and reactive to light. V: She had normal facial sensations and the temporales, masseters, and pterygoids function normally. VII: She had normal facial expressions and no facial asymmetry. VIII: She was able to hear well bilaterally and had no nystagmus. IX: The palate moved symmetrically on phonation. X: She had no hoarseness of voice. XI: The sternocleidomastoids and trapezii functioned normally. XII: The tongue was in the midline without any fasciculations or atrophy. MOTOR SYSTEM: The tone was normal in all four extremities. Examination of muscle mass revealed no focal wasting. Examination of power revealed grade 5/5 power in all muscle groups tested. SENSORY EXAMINATION: She had intact sensation to pinprick light touch, and graphesthesia. COORDINATION: She performed well on [id number] and [id number]-[id number] testing. The Romberg test was negative. REFLEXES: Trace+ and bilaterally symmetrical at the biceps, triceps, brachioradialis, and knees and 0 at both ankles. The plantar responses were flexor bilaterally. STANCE: She had a minimally wide-based, but stable stance. GAIT: She walked with a minimally wide-based, but stable gait. DIAGNOSTIC IMPRESSION: 1. Ms. Maryam Prieto is a 71-year-old, right-handed, black lady, who does have a past history of hypertension, dyslipidemia and allergies, who at approximately 8 p.m. on 01/23/2017 tried to get up from bed to go to the bathroom and felt unsteady on her feet. This unsteadiness continued, but became less intense and as a result of that she went to sleep. On awakening in the early hours of 01/24/2017, she felt a similar but more intense sensation and was thus brought into the [facility] emergency room and admitted. Today she feels that she is back to her normal self. 2. On neurological examination, at this time, she does demonstrate mild problems with orientation, recent and remote memory, visuospatial function, and higher cognitive function. She also has globally diminished reflexes. 3. Laboratory data revealed a normal CBC, normal chemistry panel, and normal urinalysis. 4. The CT scan of the brain without contrast reveals mild atrophy and deep white matter changes, but no acute pathology. 5. The patient's history and neurological examination associated with her imaging studies and laboratory data are most compatible with an episode of unsteadiness on her feet, which is now resolved. It is unclear if this was related to the labyrinthine dysfunction or due to other reasons. 6. The patient does have some cognitive dysfunction. The etiology for this is unclear at this point in time. 7. The patient also has signs of a very mild neuropathic process as evidenced by globally diminished deep tendon reflexes, which again is unexplained. RECOMMENDATIONS: 1. Agree with management thus far. 2. The patient should be worked up thoroughly for treatable causes of vertigo, cognitive function and neuropathy with in addition to the laboratory tests already done, a B12 level, folate level, vitamin D level, RPR, glycohemoglobin, Westergren sedimentation rate, TSH and serum protein immunoelectrophoresis. 3. The patient should be mobilized rapidly. Thank you for entrusting me with the care of Ms. Prieto. I shall follow her with you. Arnulfo Ochoa M.D., M.S.P.H. DR: HARLAN JOB#: [id number] MTDBrittany
--- NOTE | 2017-01-25 18:08 | Pulmonology Progress Note ---
Assessment/Plan Problems: (1) Atrial flutter, paroxysmal (2) Pulmonary nodule (3) HTN (hypertension) Assessment/Plan pt has been on sinus since admission to floor CT of chest reviewed. pt needs f/u study in 6 month or outpatient PET study Subjective ROS Limited/Unobtainable: No Allergies: Coded Allergies: No Known Allergies (Unverified , 07/06/14) Objective Last 24 Hour Vital Signs Date Time Temp Pulse Resp B/P Pulse Ox O2 Delivery O2 Flow Rate FiO2 01/25/17 16:00 78 01/25/17 15:23 97.2 77 18 100/59 100 Room Air 01/25/17 12:00 85 01/25/17 11:20 98.1 80 18 133/79 98 Room Air 01/25/17 08:54 84 114/66 01/25/17 08:00 86 01/25/17 07:57 96.1 84 18 114/66 100 Room Air 01/25/17 04:25 97.3 79 20 118/80 100 Room Air 01/25/17 04:00 69 01/25/17 00:00 88 01/24/17 20:10 98.0 90 20 120/79 100 Room Air 01/24/17 20:00 82 Intake and Output 01/24/17 01/25/17 19:00 07:00 Intake Total 640 ml Balance 640 ml Intake Oral 640 ml # Voids 2 2 Objective General Appearance: WD/WN HEENT: normocephalic Respiratory/Chest: chest wall non-tender, lungs clear, normal breath sounds, no respiratory distress Cardiovascular: normal peripheral pulses, normal rate, regular rhythm Abdomen: normal bowel sounds, soft, non tender, no organomegaly, non distended Skin: no rash 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 Lymphatic: no neck adenopathy Laboratory Tests 01/25/17 06:45: White Blood Count 7.0, Red Blood Count 4.71, Hemoglobin 14.2, Hematocrit 43.7, Mean Corpuscular Volume 93, Mean Corpuscular Hemoglobin 30.1, Mean Corpuscular Hemoglobin Concent 32.4, Red Cell Distribution Width 13.1, Platelet Count 241, Mean Platelet Volume 8.2, Neutrophils (%) (Auto) 45.9, Lymphocytes (%) (Auto) 40.0, Monocytes (%) (Auto) 9.6, Eosinophils (%) (Auto) 2.6, Basophils (%) (Auto ) 2.0, Erythrocyte Sedimentation Rate 11, Prothrombin Time 10.3, Prothromb Time International Ratio 1.0, Activated Partial Thromboplast Time 23, Hemoglobin A1c 5.4, Troponin I < 0.30, C-Reactive Protein, Quantitative < 0.3, Triglycerides Level 129, Cholesterol Level 204H, LDL Cholesterol 110H, HDL Cholesterol 68H, Cholesterol/HDL Ratio 3.0L, Vitamin B12 Level 760, Thyroid Stimulating Hormone ( TSH) 1.350 01/25/17 11:45: Total Protein (PEP) [Pending], Albumin (PEP) [Pending], Globulin (PEP) [Pending] , Albumin/Globulin Ratio [Pending], [id number] [Pending], Alpha-2- Globulins [Pending], Beta Globulins [Pending], Beta Gamma Globulin [Pending], PEP Abnormal Protein Bands [Pending], Protein Electrophoresis Interpret [Pending ], Vitamin D 25-Hydroxy [Pending], 25-Hydroxy Vitamin D2 [Pending], 25-Hydroxy Vitamin D3 [Pending], Folate [Pending], Rapid Plasma Reagin [Pending] Current Medications Medications (Trade) Dose Ordered Sig/Joseph Route PRN Reason Start Time Stop Time Status Last Admin Dose Admin Acetaminophen (Tylenol) 650 mg Q4H PRN ORAL T>100.5 01/24/17 07:15 02/23/17 07:14 Albuterol/ Ipratropium (DuoNeb 0.5-3(2.5)mg/3ml) 3 ml Q4H PRN HHN Shortness of Breath 01/24/17 07:15 01/29/17 07:14 Diltiazem HCl (Cardizem CD) 180 mg DAILY ORAL 01/24/17 09:00 02/23/17 08:59 01/25/17 08:54 Diltiazem HCl (Cardizem) 10 mg EVERY HOUR PRN IV heart rate more than 120 BPM 01/24/17 07:15 02/23/17 07:14 Enalaprilat (Vasotec) 2.5 mg Q6H PRN IV SBP>160 01/24/17 07:15 02/23/17 07:14 Metoprolol Tartrate (Lopressor) 5 mg EVERY HOUR PRN IVP heart rate more than 140 01/24/17 07:15 02/23/17 07:14 Morphine Sulfate (Morphine Sulfate) 2 mg Q4H PRN IVP Severe Pain (Pain Scale 7-10) 01/24/17 07:15 01/31/17 07:14 Nitroglycerin (Ntg) 0.4 mg Q5MIN X 3 DOSES PRN SL Prn Chest Pain 01/24/17 07:30 02/23/17 07:29 Ondansetron HCl (Zofran) 4 mg Q6H PRN IVP Nausea & Vomiting 01/24/17 07:15 02/23/17 07:14 Pantoprazole (Protonix) 40 mg DAILY ORAL 01/24/17 09:00 02/23/17 08:59 01/25/17 08:53 Polyethylene Glycol (Miralax) 17 gm DAILYPRN PRN ORAL Constipation 01/24/17 07:15 02/23/17 07:14 Pravastatin Sodium (Pravachol) 40 mg BEDTIME ORAL 01/24/17 21:00 02/23/17 20:59 01/24/17 20:54 Temazepam (Restoril) 15 mg HSPRN PRN ORAL Insomnia 01/24/17 21:00 01/31/17 20:59 SASHA HERNANDEZ Jan 25, 2017 18:08
[2017-01-25 20:00] VITALS: BP 129/75
[2017-01-25] MEDS ORDERED: Metoprolol 5mg/5ml Inj IVP PRN (21:00)
[2017-01-25] MEDS ORDERED: Diltiazem 25mg/5ml IV PRN (21:00)
[2017-01-25] MEDS ORDERED: Nitroglycerin Subl 0.4mg tab (Bottle Of 25) SL PRN (21:30)
[2017-01-25] MEDS ORDERED: Morphine Sulfate 2mg/ml Inj IVP PRN (21:30)
[2017-01-25] MEDS ORDERED: Miralax 17gm pkt ORAL PRN (21:30)
[2017-01-25] MEDS ORDERED: DuoNeb 0.5-3(2.5)mg/3ml neb HHN PRN (21:30)
[2017-01-25] MEDS ORDERED: Enalaprilat 2.5mg/2ml Inj IV PRN (21:30)
--- NOTE | 2017-01-25 23:05 | Diagnostic Imaging Report ---
APPROVED REPORT CPT Code: 50387 Vascular Symptoms Dizziness and Vertigo Doppler Spectral Velocity Analysis RightLeft RIGHT SIDE: CCA - Imaging reveals no significant plaque in the common carotid artery. ICA arteries. The Doppler signal indicates the degree of stenosis is minimal (20%) in the internal carotid, and (10%) in the external carotid arteries. VERTEBRAL - The vertebral artery is patent, without evidence of stenosis or steal. LEFT SIDE: CCA/BULB- Imaging reveals irregular, minimal plaque in the carotid bulb and external carotid arteries. VERTEBRAL - The vertebral artery is patent, without evidence of stenosis or steal.
--- NOTE | 2017-01-25 23:43 | Cardiology Progress Note ---
Assessment/Plan Assessment/Plan 1. Presyncope, continue Diltiazem, off digoxin. 2. Paroxysmal atrial flutter, not documented in the chart, ? anticoag therapy in view of high CHADS-Vasc scoring. 3. History of hypercholesterolemia, continue pravastatin. Subjective Subjective Sinus rhythm at 80. Objective Last 24 Hour Vital Signs Date Time Temp Pulse Resp B/P Pulse Ox O2 Delivery O2 Flow Rate FiO2 01/25/17 20:00 97.7 85 16 129/75 96 Room Air 01/25/17 20:00 85 01/25/17 16:00 78 01/25/17 15:23 97.2 77 18 100/59 100 Room Air 01/25/17 12:00 85 01/25/17 11:20 98.1 80 18 133/79 98 Room Air 01/25/17 08:54 84 114/66 01/25/17 08:00 86 01/25/17 07:57 96.1 84 18 114/66 100 Room Air 01/25/17 04:25 97.3 79 20 118/80 100 Room Air 01/25/17 04:00 69 01/25/17 00:00 88 Intake and Output 01/24/17 01/25/17 19:00 07:00 Intake Total 640 ml Balance 640 ml Intake Oral 640 ml # Voids 2 2 2D Echo: LVEF 55-60%, mild LVH, Grade I LVDD Laboratory Tests Test 01/25/17 06:45 01/25/17 11:45 White Blood Count 7.0 K/UL (4.8-10.8) Red Blood Count 4.71 M/UL (4.20-5.40) Hemoglobin 14.2 G/DL (12.0-16.0) Hematocrit 43.7 % (37.0-47.0) Mean Corpuscular Volume 93 FL (80-99) Mean Corpuscular Hemoglobin 30.1 PG (27.0-31.0) Mean Corpuscular Hemoglobin Concent 32.4 G/DL (32.0-36.0) Red Cell Distribution Width 13.1 % (11.6-14.8) Platelet Count 241 K/UL (150-450) Mean Platelet Volume 8.2 FL (6.5-10.1) Neutrophils (%) (Auto) 45.9 % (45.0-75.0) Lymphocytes (%) (Auto) 40.0 % (20.0-45.0) Monocytes (%) (Auto) 9.6 % (1.0-10.0) Eosinophils (%) (Auto) 2.6 % (0.0-3.0) Basophils (%) (Auto) 2.0 % (0.0-2.0) Erythrocyte Sedimentation Rate 11 MM/HR (0-30) Prothrombin Time 10.3 SEC (9.30-11.50) Prothromb Time International Ratio 1.0 (0.9-1.1) Activated Partial Thromboplast Time 23 SEC (23-33) Hemoglobin A1c 5.4 % (< 6.0) Troponin I < 0.30 ng/mL (<=0.30) C-Reactive Protein, Quantitative < 0.3 mg/dL (< 0.5) Triglycerides Level 129 mg/dL (< 150) Cholesterol Level 204 mg/dL (< 200) H LDL Cholesterol 110 mg/dL (60-99) H HDL Cholesterol 68 mg/dL (> 60) H Cholesterol/HDL Ratio 3.0 (3.3-4.4) L Vitamin B12 Level 760 pg/mL (211-946) Thyroid Stimulating Hormone (TSH) 1.350 uIU/mL (0.300-4.500) Total Protein (PEP) Pending Albumin (PEP) Pending Globulin (PEP) Pending Albumin/Globulin Ratio Pending Jwolr-7-Vavljoalp Pending Pnaes-2-Fyezcqrhc Pending Beta Globulins Pending Beta Gamma Globulin Pending PEP Abnormal Protein Bands Pending Protein Electrophoresis Interpret Pending Vitamin D 25-Hydroxy Pending 25-Hydroxy Vitamin D2 Pending 25-Hydroxy Vitamin D3 Pending Folate Pending Rapid Plasma Reagin Pending Objective HEENT: Atraumatic and normocephalic. Anicteric. Pupils are equal, round, and reactive to light and accommodation. Extraocular muscle intact. NECK: JVP is less than 5 cm. No carotid bruits. Carotid upstrokes 2+ bilaterally. CARDIOVASCULAR: Normal S1 and S2. Regular rate and rhythm. No murmurs, gallops, or rubs. PMI is at fourth intercostal space at the midclavicular line. LUNGS: Clear to auscultation bilaterally. ABDOMEN: Soft, nontender, and nondistended. No hepatosplenomegaly. Positive bowel sounds. EXTREMITIES: No evidence of edema, clubbing, or cyanosis. KELVIN LUQUE Jan 25, 2017 23:43
[2017-01-26 00:31] VITALS: BP 119/60
[2017-01-26 04:46] VITALS: BP 113/72
[2017-01-26 07:24] LABS: EOSINOPHILS % (AUTO) 3.7 % (0.0-3.0); LYMPHOCYTES % (AUTO) 46.3 % (20.0-45.0); MEAN CORPUSCULAR HEMOGLOBIN 30.1 PG (27.0-31.0); MEAN CORPUSCULAR HGB CONC 32.4 G/DL (32.0-36.0); MEAN CORPUSCULAR VOLUME 93 FL (80-99); MEAN PLATELET VOLUME 8.5 FL (6.5-10.1); MONOCYTES % (AUTO) 7.5 % (1.0-10.0); NEUTROPHILS % (AUTO) 40.6 % (45.0-75.0); PLATELET COUNT 285 K/UL (150-450); RED BLOOD COUNT 4.91 M/UL (4.20-5.40); RED CELL DISTRIBUTION WIDTH 13.2 % (11.6-14.8)
[2017-01-26 08:22] LABS: TROPONIN I < 0.30 ng/mL (<=0.30)
[2017-01-26 08:34] LABS: CALCIUM 9.5 mg/dL (8.6-10.2); CREATININE 1.1 mg/dL (0.5-0.9); GLOMERULAR FILTRATION RATE 59.5 mL/min (>60); POTASSIUM 3.8 mEQ/L (3.4-4.9)
[2017-01-26 08:45] VITALS: BP 126/76
[2017-01-26] MEDS ORDERED: Diltiazem CD 180mg cap ORAL SCH (09:00)
[2017-01-26 11:44] VITALS: BP 122/79
--- NOTE | 2017-01-26 14:48 | Neurology Progress Note ---
Interim History Interim History Interim History Ms. Prieto feels better. She has had no further episodes of unsteadiness. The mind is clear. She continues to have mild cognitive problems. She is strong. She denies any new neurologic symptoms. Review of Systems Neuro Review of Systems Benign. Objective Physical Exam Last Vital Signs Date Time Temp Pulse Resp B/P Pulse Ox O2 Delivery O2 Flow Rate FiO2 01/26/17 11:44 97.5 84 16 122/79 100 Room Air Laboratory Tests Test 01/26/17 06:20 White Blood Count 8.0 K/UL (4.8-10.8) Red Blood Count 4.91 M/UL (4.20-5.40) Hemoglobin 14.8 G/DL (12.0-16.0) Hematocrit 45.5 % (37.0-47.0) Mean Corpuscular Volume 93 FL (80-99) Mean Corpuscular Hemoglobin 30.1 PG (27.0-31.0) Mean Corpuscular Hemoglobin Concent 32.4 G/DL (32.0-36.0) Red Cell Distribution Width 13.2 % (11.6-14.8) Platelet Count 285 K/UL (150-450) Mean Platelet Volume 8.5 FL (6.5-10.1) Neutrophils (%) (Auto) 40.6 % (45.0-75.0) L Lymphocytes (%) (Auto) 46.3 % (20.0-45.0) H Monocytes (%) (Auto) 7.5 % (1.0-10.0) Eosinophils (%) (Auto) 3.7 % (0.0-3.0) H Basophils (%) (Auto) 2.0 % (0.0-2.0) Sodium Level 144 mEQ/L (135-145) Potassium Level 3.8 mEQ/L (3.4-4.9) Chloride Level 104 mEQ/L (98-107) Carbon Dioxide Level 23 mEQ/L (20-30) Anion Gap 17 (5-15) H Blood Urea Nitrogen 19 mg/dL (7-23) Creatinine 1.1 mg/dL (0.5-0.9) H Estimat Glomerular Filtration Rate 59.5 mL/min (>60) Glucose Level 105 mg/dL (74-106) Calcium Level 9.5 mg/dL (8.6-10.2) Troponin I < 0.30 ng/mL (<=0.30) Neurologic Exam Objective PHYSICAL EXAMINATION: GENERAL: She is a well-developed, well-nourished, obese, black lady, sitting up at the edge of her bed, in no acute distress. HEAD: Normocephalic and atraumatic. EENT: Examination benign. NECK: No neck rigidity was observed. NEUROLOGIC EXAMINATION: MENTAL STATUS EXAMINATION: She was alert and awake. She was oriented to person, place, and time except for the exact date. She was able to recall 3/3 words immediately, and in 1 and 3 minutes. She was able to remember presidents Trump and Obama, but could not remember presidents prior to that. Her mathematical skills were impaired. Her visuospatial function was also impaired. SPEECH: She had no dysarthria. LANGUAGE: She had no aphasia. CRANIAL NERVE EXAMINATION: II: The visual thomson were intact to confrontation testing. III, IV & : The external ocular movements were full and the pupils 3 mm in diameter, equal, round, regular and reactive to light. V: She had normal facial sensations and the temporales, masseters, and pterygoids function normally. VII: She had normal facial expressions and no facial asymmetry. VIII: She was able to hear well bilaterally and had no nystagmus. IX: The palate moved symmetrically on phonation. X: She had no hoarseness of voice. XI: The sternocleidomastoids and trapezii functioned normally. XII: The tongue was in the midline without any fasciculations or atrophy. MOTOR SYSTEM: The tone was normal in all four extremities. Examination of muscle mass revealed no focal wasting. Examination of power revealed grade 5/5 power in all muscle groups tested. SENSORY EXAMINATION: She had intact sensation to pinprick light touch, and graphesthesia. COORDINATION: She performed well on cfaxqp-zl-eyzw and xamq-ch-okst testing. The Romberg test was negative. REFLEXES: Trace+ and bilaterally symmetrical at the biceps, triceps, brachioradialis, and knees and 0 at both ankles. The plantar responses were flexor bilaterally. STANCE: She had a minimally wide-based, but stable stance. GAIT: She walked with a minimally wide-based, but stable gait. Impression/Recommendations Diagnostic Impression 1. Ms. Maryam Prieto is a 71-year-old, right-handed, black lady, who does have a past history of hypertension, dyslipidemia and allergies, who at approximately 8 p.m. on 01/23/2017 tried to get up from bed to go to the bathroom and felt unsteady on her feet. This unsteadiness continued, but became less intense and as a result of that she went to sleep. On awakening in the early hours of 01/24/2017, she felt a similar but more intense sensation and was thus brought into the [facility] emergency room and admitted. 2. She has had no further episodes of unsteadiness. She feels that she is back to her normal self. 3. On neurological examination, at this time, she does demonstrate mild problems with orientation, recent and remote memory, visuospatial function, and higher cognitive function. She also has globally diminished reflexes. 4. Laboratory data revealed a normal CBC, normal chemistry panel, and normal urinalysis. 5. The CT scan of the brain without contrast reveals mild atrophy and deep white matter changes, but no acute pathology. 6. The patient's history and neurological examination associated with her imaging studies and laboratory data are most compatible with an episode of unsteadiness on her feet, which is now resolved. It is unclear if this was related to the labyrinthine dysfunction or due to other reasons. 7. The patient does have some cognitive dysfunction. The etiology for this is unclear at this point in time. 8. The patient also has signs of a very mild neuropathic process as evidenced by globally diminished deep tendon reflexes, which again is unexplained. Recommendations 1. Continue present management. 2. Await labs 3. Mobilize rapidly. 4. No neurologic contraindications to go home. Akila Ochoa M.D., M.S.P.AKILA ANDREW Jan 26, 2017 14:48
[2017-01-26 15:47] VITALS: BP 112/66
[2017-01-26] MEDS ORDERED: XARELTO20 MG ORAL (16:23)
--- NOTE | 2017-01-26 16:39 | Discharge Summary ---
Discharge Summary Hospital Course Date of Admission Jan 24, 2017 at 06:09 Date of Discharge Admitting Diagnosis Atrial Flutter HPI Mrayam Ida is a 71 year old female who was admitted on Jan 24, 2017 at 06:09 for Atrial Flutter Hospital Course Last 24 Hour Vital Signs Date Time Temp Pulse Resp B/P Pulse Ox O2 Delivery O2 Flow Rate FiO2 01/26/17 15:47 98.6 83 16 112/66 97 Room Air 01/26/17 11:44 97.5 84 16 122/79 100 Room Air 01/26/17 08:45 97.7 89 14 126/76 98 Room Air 01/26/17 08:31 88 126/76 01/26/17 04:46 97.9 76 20 113/72 98 Room Air 01/26/17 00:31 98.2 82 20 119/60 98 Room Air 01/25/17 20:00 97.7 85 16 129/75 96 Room Air 01/25/17 20:00 85 General: No acute distress, awake and alert HEENT: NCAT, sclera anicteric, PERRL, EOMI. Neck: Supple, no significant jugular venous distention, Lungs: Good inspiratory effort, no accessory muscle use, clear to auscultation bilaterally, no Wheeze or Rales. Heart: Regular rate and rhythm, normal S1/S2, no murmurs Abdomen: soft, nontender, nondistended. Normoactive bowel sounds. Morbid Obesity. / Rectal: Refused and deferred. Extremities: No Cyanosis , clubbing or edema. Neuro: A&O x 3, Able to move all extremities Skin: warm, no rashes or lesions Psych: Normal mood and affect Discharge Discharge Disposition Patient was discharged to Home (01) Discharge Diagnoses: Gonzalez Leiaj MD Jan 26, 2017 16:39
--- NOTE | 2017-01-26 22:18 | Pulmonology Progress Note ---
Assessment/Plan Problems: (1) Atrial flutter, paroxysmal (2) Pulmonary nodule (3) HTN (hypertension) Assessment/Plan pt has been on sinus since admission to floor CT of chest reviewed. pt needs f/u study in 6 month or outpatient PET study Subjective Allergies: Coded Allergies: No Known Allergies (Unverified , 07/06/14) Objective Last 24 Hour Vital Signs Date Time Temp Pulse Resp B/P Pulse Ox O2 Delivery O2 Flow Rate FiO2 01/26/17 15:47 98.6 83 16 112/66 97 Room Air 01/26/17 11:44 97.5 84 16 122/79 100 Room Air 01/26/17 08:45 97.7 89 14 126/76 98 Room Air 01/26/17 08:31 88 126/76 01/26/17 04:46 97.9 76 20 113/72 98 Room Air 01/26/17 00:31 98.2 82 20 119/60 98 Room Air Intake and Output 01/25/17 01/26/17 19:00 07:00 Intake Total 800 ml Balance 800 ml Intake Oral 800 ml # Voids 4 1 Objective General Appearance: WD/WN HEENT: normocephalic Respiratory/Chest: chest wall non-tender, lungs clear, normal breath sounds, no respiratory distress Cardiovascular: normal peripheral pulses, normal rate, regular rhythm Abdomen: normal bowel sounds, soft, non tender, no organomegaly, non distended Skin: no rash 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: senior specialist II-XII grossly normal Lymphatic: no neck adenopathy Laboratory Tests 01/26/17 06:20: White Blood Count 8.0, Red Blood Count 4.91, Hemoglobin 14.8, Hematocrit 45.5, Mean Corpuscular Volume 93, Mean Corpuscular Hemoglobin 30.1, Mean Corpuscular Hemoglobin Concent 32.4, Red Cell Distribution Width 13.2, Platelet Count 285, Mean Platelet Volume 8.5, Neutrophils (%) (Auto) 40.6L, Lymphocytes (%) (Auto) 46.3H, Monocytes (%) (Auto) 7.5, Eosinophils (%) (Auto) 3.7H, Basophils (%) ( Auto) 2.0, Sodium Level 144, Potassium Level 3.8, Chloride Level 104, Carbon Dioxide Level 23, Anion Gap 17H, Blood Urea Nitrogen 19, Creatinine 1.1H, Estimat Glomerular Filtration Rate 59.5, Glucose Level 105, Calcium Level 9.5, Troponin I < 0.30 SASHA HERNANDEZ Jan 26, 2017 22:18
--- NOTE | 2017-01-27 00:37 | Discharge Summary ---
DATE OF ADMISSION: 01/24/2017 DATE OF DISCHARGE: 01/26/2017 HISTORY OF PRESENT ILLNESS: This is a 71-year-old female with a past medical history significant for hypertension, dyslipidemia, and allergic rhinitis, who presented to the hospital complaining about dizziness. Shortly after initial evaluation, the patient was worked up for possible vertigo and throughout the hospital course the patient was consulted with Dr. Harshad Carrasco from Cardiology, Dr. Arnulfo Ochoa from Neurology, and Dr. Michelle Jerry from Pulmonary Critical Care. The patient was noted to have abnormal finding on the chest x-ray including 2 cm nodule at the right lung base, not evidenced previously and subsequently, the patient underwent CT scan of the chest, which confirmed that the patient has a 3.3 x 1 x 2.2 cm opacification at the right lung base corresponding to the radiographic abnormality suggests of a chronic scarring than mass and stability as compared to the abdomen and pelvic CT scan 4 months ago suggested but not confirmed benignly, recommended 6 months of followup, 12 mm left lower pole thyroid nodules considered with further evaluation with ultrasound. The copy of the CT scan was given to the patient and discussed with the patient as well as the daughter extensively with regard to the finding. Throughout the hospital course, the patient noted to be in atrial flutter and after discussion with the patient with regard to the anticoagulation for possible paroxysmal atrial flutter due to the higher CHADS score, the patient said that she wants to talk to her primary doctor prior to start on anticoagulation; however, prescription for Xarelto was provided to the patient. FINAL DIAGNOSES: 1. Presyncope. 2. Paroxysmal atrial flutter. 3. Dyslipidemia. 4. Hypertension. 5. Lung mass, right lower lobe. 6. Morbid obesity. MEDICATIONS ON DISCHARGE: Continue discharge medication list. ACTIVITY: As tolerated. DIET: Cardiac diet. FOLLOWUP: I advised the patient to follow up with primary doctor. My card was provided to the patient within one week. Copy of the CT scan was given to the patient. I advised the patient to obtain the records from the hospital in order to take to her primary doctor. Gonzalez Leija M.D. DR: TRINI JOB#: [id number] CC:
[2017-01-28 12:09] LABS: VITAMIN D 25-OH TOTAL 23 ng/mL (.)
[2017-01-29 10:13] LABS: A/G RATIO 1.3 (0.7-1.7); ABNORMAL PROTEIN BAND 1 Not Observed g/dL (Not Observed); ALBUMIN 3.3 g/dL (2.9-4.4); ALPHA-1 GLOBULIN 0.2 g/dL (0.0-0.4); ALPHA-2 GLOBULIN 0.6 g/dL (0.4-1.0); GAMMA GLOBULIN 0.7 g/dL (0.4-1.8); GLOBULIN, TOTAL 2.5 g/dL (2.2-3.9); TOTAL PROTEIN 5.8 g/dL (6.0-8.5)
== END 2017-01-26 16:50 | disposition home or self-care (01) | DRG 310 ==
LOC: EMR 04:59 → EDBEDREQ 06:08 → 2E 06:09 → EDBEDREQ 07:13 → 4E 01-25 21:17
DX: I48.92 Unspecified atrial flutter (principal); E66.01 Morbid (severe) obesity due to excess calories; I10 Essential (primary) hypertension; R42 Dizziness and giddiness; J45.909 Unspecified asthma, uncomplicated; E78.5 Hyperlipidemia, unspecified; R91.8 Other nonspecific abnormal finding of lung field; R55 Syncope and collapse
CPT/HCPCS: 36415; 70450; 71010; 71260; 80048; 80053; 80061; 81003; 82306; 82607; 82746; 83036; 84165; 84443; 84484; 85025; 85610; 85651; 85730; 86140; 86592; 93005; 93306; 93880

== ENCOUNTER 2017-03-21 21:04 | Emergency (ER) | payer MEDICARE ==
[~2017-03-21] VITALS: Ht 172.7 cm; Wt 93.4 kg
[~2017-03-21 21:04] MED LIST changes: +XARELTO20 MG ORAL
[2017-03-21 21:35] VITALS: BP 155/96
[2017-03-21] MEDS ORDERED: VENTOLIN HFA18 GM INH (21:47)
[2017-03-21] MEDS ORDERED: AZITHROMYCIN250 MG ORAL (21:47)
[2017-03-21] MEDS ORDERED: BENADRYL25 M3 PO (21:47)
[2017-03-21 22:00] VITALS: BP 155/96
--- NOTE | 2017-03-21 23:08 | Emergency Room Report ---
History of Present Illness General Chief Complaint: Flu Like Symptoms Source: Patient Present Illness HPI 71YO F walk-in with 2 weeks of dry cough, "runny eyes", sinus congestion. Non smoker. No asthma, COPD history. Using neti pot, flonase already with mild improvement. Denies fever/chills, sick contacts. Allergies: Coded Allergies: No Known Allergies (Unverified , 03/21/17) Patient History Past Medical History: see triage record, old chart reviewed Past Surgical History: none Pertinent Family History: none Social History: Denies: alcohol use, drug use, smoking Last Menstrual Period: n/a Now: No Immunizations: UTD Reviewed Nursing Documentation: PMH: Agreed, PSxH: Agreed Nursing Documentation-PMH Past Medical History: No History, Except For Hx Cardiac Problems: No Hx Hypertension: Yes - High cholesterol Hx COPD: No Hx Diabetes: No Hx Cancer: No Hx Gastrointestinal Problems: No Hx Dialysis: No Hx Neurological Problems: No Hx Cerebrovascular Accident: No Hx Seizures: No Review of Systems All Other Systems: negative except mentioned in HPI Physical Exam Vital Signs Date Time Temp Pulse Resp B/P Pulse Ox O2 Delivery O2 Flow Rate FiO2 03/21/17 21:12 98.2 80 16 155/96 95 Room Air Sp02 EP Interpretation: reviewed, normal General Appearance: normal inspection, well appearing, no apparent distress, alert, GCS 15, non-toxic Head: normocephalic, atraumatic Eyes: bilateral eye EOMI, bilateral eye PERRL, bilateral eye other - Bilateral injected conjunctiva ENT: normal ENT inspection, hearing grossly normal, normal voice Neck: normal inspection, full range of motion, supple, no bony tend Respiratory: normal inspection, lungs clear, normal breath sounds, no respiratory distress, no retraction, no wheezing Cardiovascular #1: regular rate, rhythm, no edema Gastrointestinal: normal inspection, normal bowel sounds, non tender, soft, no guarding, no hernia Genitourinary: no CVA tenderness Musculoskeletal: normal inspection, back normal, normal range of motion, Gurjit' s Sign negative Neurologic: normal inspection, alert, oriented x3, responsive, tank builder and erector III-XII nml as tested, motor strength/tone normal, speech normal Psychiatric: normal inspection, judgement/insight normal, mood/affect normal Skin: normal inspection, normal color, no rash Lymphatic: normal inspection Medical Decision Making Diagnostic Impression: Primary Impression: URI (upper respiratory infection) Qualified Codes: J06.9 - Acute upper respiratory infection, unspecified ER Course Likely viral URI No obvious source of bacterial infection in oropharynx, ears, lungs, skin, abdomen on exam VSS Low suspicion for PNA or other acute bacterial process PMD followup closely DC home Understands to return for worsening symptoms - Encouraged continued neti pot and flonase use - Ventolin for cough - Zpack given duration of symptoms, age, possible CAP Last Vital Signs Date Time Temp Pulse Resp B/P Pulse Ox O2 Delivery O2 Flow Rate FiO2 03/21/17 22:00 98.2 16 155/96 95 Room Air 03/21/17 21:35 72 Status: improved Disposition: HOME, SELF-CARE Condition: Improved Scripts Albuterol Sulfate (VENTOLIN HFA) 18 Gm Hfa.aer.ad 1 PUFF INH EVERY 6 HOURS for For Cough, #18 GM 0 Refills Prov: SERA ARREDONDO M.D. 03/21/17 Diphenhydramine HCl (Benadryl) 25 Mg Capsule 25 MG PO QHS for congestion for 7 Days, #14 CAP Prov: SERA ARREDONDO M.D. 03/21/17 Azithromycin* (ZITHROMAX*) 250 Mg Tablet 250 MG ORAL DAILY, #6 TAB 0 Refills Take two tablets by mouth today, then take one tablet by mouth daily for four days Prov: SERA ARREDONDO M.D. 03/21/17 Patient Instructions: Upper Respiratory Infection, Adult, [id number] Additional Instructions: - Take all the Zpack until finished - COugh: use ventolin pump during the day and continue using Neti pot nasal rinse at night - Congestion: Take 1 sudafed each morning for no more than 3 days. Continue using flonase. Take a benadryl at night. - Follow up with your primary care doctor in 2-3 days SERA ARREDONDO M.D. Mar 21, 2017 23:08
== END 2017-03-21 22:00 | disposition home or self-care (01) ==
LOC: EMR 22:00
DX: J06.9 Acute upper respiratory infection, unspecified (principal); I10 Essential (primary) hypertension
CPT/HCPCS: 99284

== ENCOUNTER 2017-09-03 02:38 | Emergency (ER) | payer MEDICARE ==
[~2017-09-03] VITALS: Ht 170.2 cm; Wt 97.5 kg
[~2017-09-03 02:38] MED LIST changes: +AZITHROMYCIN250 MG ORAL; +BENADRYL25 M3 PO; +VENTOLIN HFA18 GM INH
[2017-09-03] MEDS ORDERED: ASPIR-LOW81 MG ORAL (02:49)
[2017-09-03 03:05] VITALS: BP 189/100
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
[2017-09-03 03:17] LABS: APPEARANCE,URINE CLEAR; KETONES,URINE NEGATIVE (NEGATIVE); LEUKOCYTE ESTERASE ,URINE NEGATIVE (NEGATIVE); NITRITE,URINE NEGATIVE (NEGATIVE); PH,URINE 7 (4.5-8.0); PROTEIN,URINE NEGATIVE (NEGATIVE); UROBILINOGEN,URINE NORMAL MG/DL (0.0-1.0)
[2017-09-03 03:57] LABS: BASOPHILS % (AUTO) 1.8 % (0.0-2.0); EOSINOPHILS % (AUTO) 4.2 % (0.0-3.0); LYMPHOCYTES % (AUTO) 45.6 % (20.0-45.0); MEAN CORPUSCULAR HEMOGLOBIN 29.9 PG (27.0-31.0); MEAN CORPUSCULAR HGB CONC 32.4 G/DL (32.0-36.0); MEAN CORPUSCULAR VOLUME 92 FL (80-99); MEAN PLATELET VOLUME 7.5 FL (6.5-10.1); MONOCYTES % (AUTO) 4.9 % (1.0-10.0); NEUTROPHILS % (AUTO) 43.5 % (45.0-75.0); PLATELET COUNT 304 K/UL (150-450); RED BLOOD COUNT 4.88 M/UL (4.20-5.40); RED CELL DISTRIBUTION WIDTH 12.3 % (11.6-14.8); WHITE BLOOD COUNT 8.1 K/UL (4.8-10.8)
[2017-09-03 04:07] LABS: ANION GAP 9 mmol/L (5-15); CALCIUM 8.8 MG/DL (8.5-10.1); CARBON DIOXIDE 28 MMOL/L (21-32); CHLORIDE 106 MMOL/L (98-107); CREATININE 0.9 MG/DL (0.55-1.30); POTASSIUM 3.2 MMOL/L (3.5-5.1); SODIUM 143 MMOL/L (136-145)
[2017-09-03 04:20] LABS: ALANINE AMINOTRANSFERASE 31 U/L (12-78); ALBUMIN/GLOBULIN RATIO 1.1 (1.0-2.7); ASPARTATE AMINO TRANSFERASE 21 U/L (15-37); CKMB 2.2 NG/ML (0.0-3.6); TOTAL PROTEIN 7.2 G/DL (6.4-8.2)
[2017-09-03 04:32] VITALS: BP 178/102
[2017-09-03] MEDS ORDERED: MECLIZINE HCL25 MG ORAL (04:36)
[2017-09-03 04:50] VITALS: BP 161/82
[2017-09-03 04:52] VITALS: BP 161/82
--- NOTE | 2017-09-03 14:39 | Diagnostic Imaging Report ---
Indication: SOB Technique: One view of the chest Comparison: 01/24/2017 Findings: The lungs and pleural spaces are clear. The heart size is normal. Aorta is tortuous. No significant change Impression: No acute process
--- NOTE | 2017-09-03 18:28 | Cardiology Report ---
APPROVED REPORT EKG Measurement Heart [id number] Normal sinus rhythm Possible Left atrial enlargement Left ventricular hypertrophy Nonspecific ST abnormality Abnormal ECG
== END 2017-09-03 04:52 | disposition home or self-care (01) ==
LOC: EMR 02:53
DX: R42 Dizziness and giddiness (principal); I48.91 Unspecified atrial fibrillation; I10 Essential (primary) hypertension; Z79.01 Long term (current) use of anticoagulants
CPT/HCPCS: 36415; 71010; 80053; 81003; 82550; 82553; 84484; 85025; 93005; 96360; 99284

== ENCOUNTER 2017-09-03 21:21 | Inpatient (IN) | payer MEDICARE ==
[~2017-09-03] VITALS: Ht 170.2 cm; Wt 96.6 kg
[~2017-09-03 21:21] MED LIST changes: +ASPIR-LOW81 MG ORAL; +MECLIZINE HCL25 MG ORAL
[2017-09-03] MEDS ORDERED: Aspirin Baby 81mg ORAL ONE (22:30)
[2017-09-03] MEDS ORDERED: Tubing IV Cassette IV ONE (22:51)
[2017-09-03 23:19] LABS: MEAN CORPUSCULAR HEMOGLOBIN 31.3 PG (27.0-31.0); MEAN CORPUSCULAR HGB CONC 33.9 G/DL (32.0-36.0); MEAN CORPUSCULAR VOLUME 92 FL (80-99); MEAN PLATELET VOLUME 7.1 FL (6.5-10.1); PLATELET COUNT 306 K/UL (150-450); RED BLOOD COUNT 4.72 M/UL (4.20-5.40); RED CELL DISTRIBUTION WIDTH 12.4 % (11.6-14.8); WHITE BLOOD COUNT 7.5 K/UL (4.8-10.8)
[2017-09-03 23:28] LABS: ANION GAP 11 mmol/L (5-15); APPEARANCE,URINE CLEAR; CALCIUM 9.1 MG/DL (8.5-10.1); CARBON DIOXIDE 25 MMOL/L (21-32); CHLORIDE 107 MMOL/L (98-107); KETONES,URINE NEGATIVE (NEGATIVE); LEUKOCYTE ESTERASE ,URINE NEGATIVE (NEGATIVE); NITRITE,URINE NEGATIVE (NEGATIVE); PH,URINE 6.5 (4.5-8.0); POTASSIUM 3.6 MMOL/L (3.5-5.1); PROTEIN,URINE NEGATIVE (NEGATIVE); SODIUM 143 MMOL/L (136-145); UROBILINOGEN,URINE NORMAL MG/DL (0.0-1.0)
[2017-09-03 23:39] LABS: ALANINE AMINOTRANSFERASE 28 U/L (12-78); ASPARTATE AMINO TRANSFERASE 23 U/L (15-37); TOTAL PROTEIN 7.5 G/DL (6.4-8.2)
[2017-09-03 23:47] LABS: INR 0.9 (0.9-1.1); PROTHROMBIN TIME 9.6 SEC (9.30-11.50)
[2017-09-03 23:48] LABS: BILIRUBIN,DIRECT 0.2 MG/DL (0.0-0.3)
[2017-09-04] VITALS (8 sets, daily range): BP systolic 125–147; BP diastolic 77–97
--- NOTE | 2017-09-04 00:25 | Emergency Room Report ---
History of Present Illness General Chief Complaint: Dizziness Source: Patient Present Illness HPI The patient's second visit for dizziness and unsteadiness on her feet. Before, her blood pressure was out of control however this time it is controlled. She feels that she is about to fall and that she's had a lack of coordination. This happened within the last week and she was seen last night here.. She does not feel the world spinning. No nausea with symptoms. Not positional. She denies head trauma, fever, headaches, ear aches, tinnitus, sore throat, NVD , dysuria. No chest pain, neck pain, dyspnea. Being this unsteady, she has almost fallen in the past few days. No depression , but concerned about unsteadiness. H/O paroxysmal atrial flutter - MD not want anticoagulation. Allergies: Coded Allergies: No Known Allergies (Unverified , 03/21/17) Patient History Past Medical History: see triage record, old chart reviewed Social History: Denies: smoking Social History Narrative lives at home Last Menstrual Period: NA Now: No Reviewed Nursing Documentation: PMH: Agreed, PSxH: Agreed Nursing Documentation-PMH Hx Cardiac Problems: No Hx Hypertension: Yes - High cholesterol Hx COPD: No Hx Diabetes: No Hx Cancer: No Hx Gastrointestinal Problems: No Hx Dialysis: No Hx Neurological Problems: No Hx Cerebrovascular Accident: No Hx Seizures: No Review of Systems All Other Systems: negative except mentioned in HPI Physical Exam Vital Signs Date Time Temp Pulse Resp B/P (MAP) Pulse Ox O2 Delivery O2 Flow Rate FiO2 09/03/17 21:33 98.8 93 18 139/90 98 Room Air Sp02 EP Interpretation: reviewed, normal General Appearance: well appearing, no apparent distress, GCS 15, other - frail and somewhat unsteady gait Head: normocephalic Eyes: bilateral eye normal inspection, bilateral eye PERRL ENT: moist mucus membranes Neck: supple Respiratory: lungs clear, normal breath sounds Cardiovascular #1: regular rate, rhythm Cardiovascular #2: 2+ radial (R) Gastrointestinal: normal inspection, normal bowel sounds, non tender, no mass, non-distended Musculoskeletal: back normal, gait/station normal, normal range of motion Neurologic: alert, oriented x3, supervisor III-XII nml as tested - no nystagmus, motor strength/tone normal, DTRs symmetric, sensory intact, other - + rhomberg Psychiatric: depressed affect Skin: normal inspection, warm/dry Medical Decision Making Diagnostic Impression: Primary Impression: Unsteady gait Additional Impression: Rule out cerebellar stroke ER Course Patient presents with unsteadiness and + Romberg. DDx: arrhythmia, labyrinthitis, BPV, cerebellar ischemia or stroke, electrolyte abnormalities, MS , occult infection amongst others.. HTN risk factor for CVA process. Lack of nausea/vomiting/ear/positional sy suggests more central origin. Emergent evaluation with CT, EKG, labs. Will presumptively treat with aspirin. No nausea, so zofran not indicated. BP relatively well controlled. EKG without injury, CXR unremarkable. CT with white matter changes. Labs unremarkable. Patient still with unsteady gait and + Romberg. Needs cardiac monitoring, neuro eval and MRI. Admit telemetry Dr. Leija. Laboratory Tests Test 09/03/17 22:55 White Blood Count 7.5 K/UL (4.8-10.8) Red Blood Count 4.72 M/UL (4.20-5.40) Hemoglobin 14.8 G/DL (12.0-16.0) Hematocrit 43.6 % (37.0-47.0) Mean Corpuscular Volume 92 FL (80-99) Mean Corpuscular Hemoglobin 31.3 PG (27.0-31.0) H Mean Corpuscular Hemoglobin Concent 33.9 G/DL (32.0-36.0) Red Cell Distribution Width 12.4 % (11.6-14.8) Platelet Count 306 K/UL (150-450) Mean Platelet Volume 7.1 FL (6.5-10.1) Neutrophils (%) (Auto) % (45.0-75.0) Lymphocytes (%) (Auto) % (20.0-45.0) Monocytes (%) (Auto) % (1.0-10.0) Eosinophils (%) (Auto) % (0.0-3.0) Basophils (%) (Auto) % (0.0-2.0) Prothrombin Time 9.6 SEC (9.30-11.50) Prothrombin Time INR 0.9 (0.9-1.1) PTT 23 SEC (23-33) Urine Color Yellow Urine Appearance Clear Urine pH 6.5 (4.5-8.0) Urine Specific [place] 1.005 (1.005-1.035) Urine Protein Negative (NEGATIVE) Urine Glucose (UA) Negative (NEGATIVE) Urine Ketones Negative (NEGATIVE) Urine Occult Blood Negative (NEGATIVE) Urine Nitrite Negative (NEGATIVE) Urine Bilirubin Negative (NEGATIVE) Urine Urobilinogen Normal MG/DL (0.0-1.0) Urine Leukocyte Esterase Negative (NEGATIVE) Sodium Level 143 MMOL/L (136-145) Potassium Level 3.6 MMOL/L (3.5-5.1) Chloride Level 107 MMOL/L (98-107) Carbon Dioxide Level 25 MMOL/L (21-32) Anion Gap 11 mmol/L (5-15) Blood Urea Nitrogen 11 mg/dL (7-18) Creatinine 1.0 MG/DL (0.55-1.30) Estimate Glomerular Filtration Rate mL/min (>60) Glucose Level 127 MG/DL (74-106) H Calcium Level 9.1 MG/DL (8.5-10.1) Total Bilirubin 1.5 MG/DL (0.2-1.0) H Direct Bilirubin 0.2 MG/DL (0.0-0.3) Aspartate Amino Transferase (AST) 23 U/L (15-37) Alanine Aminotransferase (ALT) 28 U/L (12-78) Alkaline Phosphatase 75 U/L (46-116) Total Creatine Kinase 145 U/L (26-308) Troponin I 0.004 ng/mL (0.000-0.056) Pro-B-Type Natriuretic Peptide 65 pg/mL (0-125) Total Protein 7.5 G/DL (6.4-8.2) Albumin 3.8 G/DL (3.4-5.0) Globulin 3.7 g/dL Albumin/Globulin Ratio 1.0 (1.0-2.7) EKG Diagnostic Results Rate: normal Rhythm: NSR ST Segments: no acute changes - LVH Rhythm Strip Diag. Results EP Interpretation: yes Rhythm: NSR, no PVC's, no ectopy Chest X-Ray Diagnostic Results Chest X-Ray Diagnostic Results : Chest X-Ray Ordered: Yes # of Views/Limited/Complete: 1 View Indication: Other Interpretation: no consolidation, no effusion, no pneumothorax, no acute cardiopulmonary disease Impression: Other Electronically Signed by: Electronically signed by Satnam García MD CT/MRI/US Diagnostic Results CT/MRI/US Diagnostic Results : Imaging Test Ordered: head Impression IMPRESSION: Chronic and age-related changes. Negative for acute intracranial bleed or mass effect Sinus disease Status: improved Disposition: ADMITTED INPATIENT Condition: Serious Referrals: NOT CHOSEN ABELARDO/,REFERRING (PCP) Satnam García M.D. Sep 04, 2017 00:25
[2017-09-04] MEDS ORDERED: Aspirin Baby 81mg ORAL SCH (09:00)
[2017-09-04] MEDS: Aspirin EC 81mg tab ORAL SCH (09:03)
[2017-09-04] MEDS: dilTIAZem HCl CD 180mg cap ORAL SCH (09:04)
[2017-09-04] MEDS: Heparin 5000 units/ml inj SUBQ SCH ×2 (09:08→20:39)
--- NOTE | 2017-09-04 10:49 | Diagnostic Imaging Report ---
Indication: Shortness of breath Technique: One view of the chest Comparison: none Findings: Lungs and pleural spaces are clear. Heart size is normal. The aorta is somewhat tortuous. There is no significant interim change Impression: No acute process This agrees with the preliminary interpretation provided by the emergency room physician
--- NOTE | 2017-09-04 10:53 | Diagnostic Imaging Report ---
Indication: DIZZY Technique: spiral acquisitions obtained through the brain. Angled axial and coronal 5 x 5 mm slices were reconstructed. No IV contrast utilized. Radiation dose was minimized using automated exposure control Total dose length product 1383 mGycm. CTDIvol(s) 70 mGy Comparison: 01/24/2017 FINDINGS: No acute hemorrhage or edema. No mass effect or midline shift. There is mild age-related enlargement of the ventricles and extra axial CSF spaces. There is periventricular deep white matter ischemic change. Normal phillips-white differentiation. There is bilateral maxillary, ethmoid, sphenoid, and frontal sinus disease as well as fairly extensive opacification of the nasal fossa. This is slightly increased from the previous exam. Visualized orbits are unremarkable. Intact calvarium. No significant interim change other than slight increase in degree of sinus disease IMPRESSION: Chronic and age-related changes. Negative for acute intracranial bleed or mass effect Sinus disease This agrees with the preliminary interpretation provided overnight by [facility]erad[facility] service. The CT scanner at [facility] is accredited by the [employer] and the scans are performed using protocols designed to limit radiation exposure to as low as reasonably achievable to attain images of sufficient resolution adequate for diagnostic evaluation
--- NOTE | 2017-09-04 12:10 | Consultation ---
History of Present Illness General Date patient seen: Sep 04, 2017 Chief Complaint: Dizziness Referring physician: Dr. Rowan [facility]ation[facility] Present Illness HPI 72 year old female with hx of HTN, ? paroxysmal Afib in the past presented twice to ER with CC of dizziness and unsteadiness on her feet. During the initial visit her BP was very high. Her BP was controlled and she was sent home. She comes back again with the same symptoms but her BP wain in normal range. She feels that she is about to fall and that she's had a lack of coordination. This happened within the last week. Her CT of head was negative. She is admitted to telemetry for further evaluation. Allergies: Coded Allergies: No Known Allergies (Unverified , 03/21/17) Medication History Scheduled Aspirin* (Aspir-Low*), 81 MG ORAL DAILY, (Reported) Diltiazem Hcl* (Cardizem Cd*), 180 MG ORAL DAILY, (Reported) Meclizine Hcl* (Meclizine*), 25 MG ORAL THREE TIMES A DAY Pravastatin Sod* (Pravachol*), 40 MG ORAL BEDTIME, (Reported) Discontinued Medications Albuterol Sulfate (Ventolin Hfa), 1 PUFF INH EVERY 6 HOURS Discontinued Reason: Therapy completed Albuterol Sulfate* (Albuterol Sulfate Hhn*), 3 ML INH Q4H PRN for Shortness of Breath, (Reported) Discontinued Reason: Therapy completed Albuterol Sulfate* (Proair Hfa*), 2 PUFFS INH BID, (Reported) Discontinued Reason: Therapy completed Azelastine Hcl (Azelastine Hcl), 137 MCG NS NEEDED, (Reported) Discontinued Reason: Therapy completed Azithromycin* (Zithromax*), 250 MG ORAL DAILY Discontinued Reason: Therapy completed Diltiazem Hcl* (Cardizem*), 60 MG ORAL Q12HR, (Reported) Discontinued Reason: Therapy completed Diphenhydramine HCl (Benadryl), 25 MG PO QHS Discontinued Reason: Therapy completed Fluticasone Propionate (Fluticasone Propionate), 1 SPRAY NASAL DAILY PRN for Shortness of Breath, (Reported) Discontinued Reason: Therapy completed Ibuprofen (Ibuprofen*), 800 MG ORAL PRN PRN for For Pain, (Reported) Discontinued Reason: Therapy completed Mometasone Furoate (Nasonex), 2 SPRAYS NASAL DAILY, (Reported) Discontinued Reason: Therapy completed Prednisone* (Prednisone*), 10 MG ORAL DAILY, (Reported) Discontinued Reason: Therapy completed Ranitidine Hcl* (Zantac*), 150 MG ORAL TWICE A DAY Discontinued Reason: Therapy completed Rivaroxaban (Xarelto), 20 MG ORAL DAILY Discontinued Reason: Therapy completed Tiotropium Gormania* (Spiriva*), 1 PUFF INH DAILY, (Reported) Discontinued Reason: Therapy completed Patient History Healthcare decision maker Resuscitation status Full Code Advanced Directive on File Past Medical/Surgical History Past Medical/Surgical History: (1) Pulmonary nodule (2) Asthma (3) HTN (hypertension) Review of Systems Constitutional: Reports: no symptoms, malaise, weakness Physical Exam General Appearance: no apparent distress Lines, tubes and drains: peripheral HEENT: normocephalic, atraumatic Neck: non-tender, normal alignment Respiratory/Chest: chest wall non-tender, normal breath sounds Breasts: no masses Cardiovascular/Chest: normal peripheral pulses Abdomen: normal bowel sounds, non tender Genitourinary/Rectal: normal genital exam, normal rectal exam Last 24 Hour Vital Signs Date Time Temp Pulse Resp B/P (MAP) Pulse Ox O2 Delivery O2 Flow Rate FiO2 09/04/17 11:40 97.3 92 18 134/83 100 09/04/17 09:04 96 135/86 09/04/17 09:00 96 09/04/17 08:55 91 09/04/17 08:50 90 09/04/17 08:10 96.8 81 18 136/87 100 09/04/17 04:21 95.9 89 18 125/86 100 Room Air 09/04/17 04:00 88 09/04/17 01:45 97.5 89 16 147/97 98 Room Air 21 09/04/17 01:28 96 09/04/17 01:15 87 16 143/89 97 Room Air 09/04/17 01:15 97.5 87 16 143/89 97 Room Air 09/04/17 00:01 97.5 80 16 131/77 98 Room Air 09/03/17 21:33 98.8 93 18 139/90 98 Room Air Intake and Output 09/04/17 09/05/17 19:00 07:00 Intake Total 360 ml Balance 360 ml Intake Oral 360 ml # Voids 2 Laboratory Tests Test 09/03/17 22:55 White Blood Count 7.5 K/UL (4.8-10.8) Red Blood Count 4.72 M/UL (4.20-5.40) Hemoglobin 14.8 G/DL (12.0-16.0) Hematocrit 43.6 % (37.0-47.0) Mean Corpuscular Volume 92 FL (80-99) Mean Corpuscular Hemoglobin 31.3 PG (27.0-31.0) H Mean Corpuscular Hemoglobin Concent 33.9 G/DL (32.0-36.0) Red Cell Distribution Width 12.4 % (11.6-14.8) Platelet Count 306 K/UL (150-450) Mean Platelet Volume 7.1 FL (6.5-10.1) Neutrophils (%) (Auto) % (45.0-75.0) Lymphocytes (%) (Auto) % (20.0-45.0) Monocytes (%) (Auto) % (1.0-10.0) Eosinophils (%) (Auto) % (0.0-3.0) Basophils (%) (Auto) % (0.0-2.0) Prothrombin Time 9.6 SEC (9.30-11.50) Prothromb Time International Ratio 0.9 (0.9-1.1) Activated Partial Thromboplast Time 23 SEC (23-33) Urine Color Yellow Urine Appearance Clear Urine pH 6.5 (4.5-8.0) Urine Specific [place] 1.005 (1.005-1.035) Urine Protein Negative (NEGATIVE) Urine Glucose (UA) Negative (NEGATIVE) Urine Ketones Negative (NEGATIVE) Urine Occult Blood Negative (NEGATIVE) Urine Nitrite Negative (NEGATIVE) Urine Bilirubin Negative (NEGATIVE) Urine Urobilinogen Normal MG/DL (0.0-1.0) Urine Leukocyte Esterase Negative (NEGATIVE) Sodium Level 143 MMOL/L (136-145) Potassium Level 3.6 MMOL/L (3.5-5.1) Chloride Level 107 MMOL/L (98-107) Carbon Dioxide Level 25 MMOL/L (21-32) Anion Gap 11 mmol/L (5-15) Blood Urea Nitrogen 11 mg/dL (7-18) Creatinine 1.0 MG/DL (0.55-1.30) Estimat Glomerular Filtration Rate mL/min (>60) Glucose Level 127 MG/DL (74-106) H Calcium Level 9.1 MG/DL (8.5-10.1) Total Bilirubin 1.5 MG/DL (0.2-1.0) H Direct Bilirubin 0.2 MG/DL (0.0-0.3) Aspartate Amino Transf (AST/SGOT) 23 U/L (15-37) Alanine Aminotransferase (ALT/SGPT) 28 U/L (12-78) Alkaline Phosphatase 75 U/L (46-116) Total Creatine Kinase 145 U/L (26-308) Troponin I 0.004 ng/mL (0.000-0.056) Pro-B-Type Natriuretic Peptide 65 pg/mL (0-125) Total Protein 7.5 G/DL (6.4-8.2) Albumin 3.8 G/DL (3.4-5.0) Globulin 3.7 g/dL Albumin/Globulin Ratio 1.0 (1.0-2.7) Height (Feet): 5 Height (Inches): 7.00 Weight (Pounds): 213 Medications Current Medications Medications (Trade) Dose Ordered Sig/Joseph Route PRN Reason Start Time Stop Time Status Last Admin Dose Admin Acetaminophen (Tylenol) 650 mg Q6H PRN ORAL Mild Pain/Temp > 100.5 09/04/17 07:30 10/04/17 07:29 Aspirin (Ecotrin) 81 mg DAILY ORAL 09/04/17 09:00 10/04/17 08:59 09/04/17 09:03 Dextrose (Dextrose 50%) STAT PRN IV Hypoglycemia 09/04/17 07:15 10/04/17 07:14 Diltiazem HCl (Cardizem CD) 180 mg DAILY ORAL 09/04/17 09:00 10/04/17 08:59 09/04/17 09:04 Heparin Sodium (Porcine) (Heparin 5000 units/ml) 5,000 units EVERY 12 HOURS SUBQ 09/04/17 09:00 10/04/17 08:59 09/04/17 09:08 Ondansetron HCl (Zofran) 4 mg Q4HR PRN IVP Nausea & Vomiting 09/04/17 07:30 10/04/17 07:29 Pravastatin Sodium (Pravachol) 40 mg BEDTIME ORAL 09/04/17 21:00 10/04/17 20:59 Sodium Chloride 1,000 ml @ 300 mls/hr Q3H20M IV 09/03/17 22:30 10/03/17 22:29 09/03/17 22:52 Assessment/Plan Problem List: (1) Acute encephalopathy ICD Codes: G93.40 - Encephalopathy, unspecified SNOMED: 8841709 (2) HTN (hypertension) ICD Codes: I10 - Essential (primary) hypertension SNOMED: 69236479 (3) Unsteady gait ICD Codes: R26.81 - Unsteadiness on feet SNOMED: 05481078, 418587127 (4) Altered mental status ICD Codes: R41.82 - Altered mental status, unspecified SNOMED: 408796687 Assessment/Plan tele monitoring neuro evaluation MRI of brain adjust cardiac meds. SASHA HERNANDEZ Sep 04, 2017 12:10
--- NOTE | 2017-09-04 12:52 | Neurology Progress Note ---
Objective Physical Exam Last Vital Signs Date Time Temp Pulse Resp B/P (MAP) Pulse Ox O2 Delivery O2 Flow Rate FiO2 09/04/17 11:40 97.3 92 18 134/83 100 09/04/17 04:21 Room Air 09/04/17 01:45 21 Laboratory Tests Test 09/03/17 22:55 White Blood Count 7.5 K/UL (4.8-10.8) Red Blood Count 4.72 M/UL (4.20-5.40) Hemoglobin 14.8 G/DL (12.0-16.0) Hematocrit 43.6 % (37.0-47.0) Mean Corpuscular Volume 92 FL (80-99) Mean Corpuscular Hemoglobin 31.3 PG (27.0-31.0) H Mean Corpuscular Hemoglobin Concent 33.9 G/DL (32.0-36.0) Red Cell Distribution Width 12.4 % (11.6-14.8) Platelet Count 306 K/UL (150-450) Mean Platelet Volume 7.1 FL (6.5-10.1) Neutrophils (%) (Auto) % (45.0-75.0) Lymphocytes (%) (Auto) % (20.0-45.0) Monocytes (%) (Auto) % (1.0-10.0) Eosinophils (%) (Auto) % (0.0-3.0) Basophils (%) (Auto) % (0.0-2.0) Prothrombin Time 9.6 SEC (9.30-11.50) Prothromb Time International Ratio 0.9 (0.9-1.1) Activated Partial Thromboplast Time 23 SEC (23-33) Urine Color Yellow Urine Appearance Clear Urine pH 6.5 (4.5-8.0) Urine Specific [place] 1.005 (1.005-1.035) Urine Protein Negative (NEGATIVE) Urine Glucose (UA) Negative (NEGATIVE) Urine Ketones Negative (NEGATIVE) Urine Occult Blood Negative (NEGATIVE) Urine Nitrite Negative (NEGATIVE) Urine Bilirubin Negative (NEGATIVE) Urine Urobilinogen Normal MG/DL (0.0-1.0) Urine Leukocyte Esterase Negative (NEGATIVE) Sodium Level 143 MMOL/L (136-145) Potassium Level 3.6 MMOL/L (3.5-5.1) Chloride Level 107 MMOL/L (98-107) Carbon Dioxide Level 25 MMOL/L (21-32) Anion Gap 11 mmol/L (5-15) Blood Urea Nitrogen 11 mg/dL (7-18) Creatinine 1.0 MG/DL (0.55-1.30) Estimat Glomerular Filtration Rate mL/min (>60) Glucose Level 127 MG/DL (74-106) H Calcium Level 9.1 MG/DL (8.5-10.1) Total Bilirubin 1.5 MG/DL (0.2-1.0) H Direct Bilirubin 0.2 MG/DL (0.0-0.3) Aspartate Amino Transf (AST/SGOT) 23 U/L (15-37) Alanine Aminotransferase (ALT/SGPT) 28 U/L (12-78) Alkaline Phosphatase 75 U/L (46-116) Total Creatine Kinase 145 U/L (26-308) Troponin I 0.004 ng/mL (0.000-0.056) Pro-B-Type Natriuretic Peptide 65 pg/mL (0-125) Total Protein 7.5 G/DL (6.4-8.2) Albumin 3.8 G/DL (3.4-5.0) Globulin 3.7 g/dL Albumin/Globulin Ratio 1.0 (1.0-2.7) Impression/Recommendations Problems: (1) recurrent gait ataxia (2) Hypercholesteremia (3) HTN (hypertension) Status: unchanged Recommendations #[id number] NATHALIE EPPERSON Sep 04, 2017 12:52
--- NOTE | 2017-09-04 13:45 | Cardiology Report ---
APPROVED REPORT EXAM: Two-dimensional and M-mode echocardiogram with Doppler and color Doppler. INDICATION Dizziness and Vertigo M-Mode DIMENSIONS IVSd1.5 (0.7-1.1cm)Left Atrium (MM)1.8 (1.6-4.0cm) LVDd3.5 (3.5-5.6cm)Aortic Root4.0 (2.0-3.7cm) PWd1.3 (0.7-1.1cm)Aortic Cusp Exc.2.3 (1.5-2.0cm) LVDs1.4 (2.5-4.0cm) PWs1.9 cm Technically difficult study due to poor parasternal acoustical windows. Study quality precludes accurate assessment of regional wall motion. Normal left ventricular chamber size, systolic function and wall motion. Left ventricular ejection fraction estimated to be 65-70 %. Mild left ventricular hypertrophy. No evidence of pericardial effusion. All other cardiac chamber sizes are within normal limits. Focal aortic valve sclerosis with adequate cusp excursion. Mildly thickened mitral valve leaflets with normal excursion. Mild mitral annulus and aortic root calcification. Aortic root dilatation. Pulmonic valve not well visualized. Normal tricuspid valve structure. IVC at normal size with physiologic collapse. poor valve detail A color flow and spectral Doppler study was performed and revealed: No aortic regurgitation. No mitral regurgitation. Mitral diastolic velocities suggest reduced left ventricular relaxation c/w mild LV diastolic dysfunction (Grade I ). No tricuspid regurgitation. Tricuspid systolic velocities suggests peak right ventricular systolic pressure of 9 mmHg. No pulmonic regurgitation present.
--- NOTE | 2017-09-04 14:18 | Cardiology Report ---
APPROVED REPORT EKG Measurement Heart [id number] Normal sinus rhythm Minimal voltage criteria for LVH, may be normal variant Borderline ECG
--- NOTE | 2017-09-04 15:10 | Cardiology Progress Note ---
Assessment/Plan Assessment/Plan [id number] avoid excssive na intake awiatn mria d mri consider addition of acei if tighter bp control necessary Objective Last 24 Hour Vital Signs Date Time Temp Pulse Resp B/P (MAP) Pulse Ox O2 Delivery O2 Flow Rate FiO2 09/04/17 11:40 97.3 92 18 134/83 100 09/04/17 09:04 96 135/86 09/04/17 09:00 96 09/04/17 08:55 91 09/04/17 08:50 90 09/04/17 08:10 96.8 81 18 136/87 100 09/04/17 04:21 95.9 89 18 125/86 100 Room Air 09/04/17 04:00 88 09/04/17 01:45 97.5 89 16 147/97 98 Room Air 21 09/04/17 01:28 96 09/04/17 01:15 87 16 143/89 97 Room Air 09/04/17 01:15 97.5 87 16 143/89 97 Room Air 09/04/17 00:01 97.5 80 16 131/77 98 Room Air 09/03/17 21:33 98.8 93 18 139/90 98 Room Air Intake and Output 09/04/17 09/05/17 19:00 07:00 Intake Total 600 ml Balance 600 ml Intake Oral 600 ml # Voids 2 Laboratory Tests Test 09/03/17 22:55 White Blood Count 7.5 K/UL (4.8-10.8) Red Blood Count 4.72 M/UL (4.20-5.40) Hemoglobin 14.8 G/DL (12.0-16.0) Hematocrit 43.6 % (37.0-47.0) Mean Corpuscular Volume 92 FL (80-99) Mean Corpuscular Hemoglobin 31.3 PG (27.0-31.0) H Mean Corpuscular Hemoglobin Concent 33.9 G/DL (32.0-36.0) Red Cell Distribution Width 12.4 % (11.6-14.8) Platelet Count 306 K/UL (150-450) Mean Platelet Volume 7.1 FL (6.5-10.1) Neutrophils (%) (Auto) % (45.0-75.0) Lymphocytes (%) (Auto) % (20.0-45.0) Monocytes (%) (Auto) % (1.0-10.0) Eosinophils (%) (Auto) % (0.0-3.0) Basophils (%) (Auto) % (0.0-2.0) Prothrombin Time 9.6 SEC (9.30-11.50) Prothromb Time International Ratio 0.9 (0.9-1.1) Activated Partial Thromboplast Time 23 SEC (23-33) Urine Color Yellow Urine Appearance Clear Urine pH 6.5 (4.5-8.0) Urine Specific [place] 1.005 (1.005-1.035) Urine Protein Negative (NEGATIVE) Urine Glucose (UA) Negative (NEGATIVE) Urine Ketones Negative (NEGATIVE) Urine Occult Blood Negative (NEGATIVE) Urine Nitrite Negative (NEGATIVE) Urine Bilirubin Negative (NEGATIVE) Urine Urobilinogen Normal MG/DL (0.0-1.0) Urine Leukocyte Esterase Negative (NEGATIVE) Sodium Level 143 MMOL/L (136-145) Potassium Level 3.6 MMOL/L (3.5-5.1) Chloride Level 107 MMOL/L (98-107) Carbon Dioxide Level 25 MMOL/L (21-32) Anion Gap 11 mmol/L (5-15) Blood Urea Nitrogen 11 mg/dL (7-18) Creatinine 1.0 MG/DL (0.55-1.30) Estimat Glomerular Filtration Rate mL/min (>60) Glucose Level 127 MG/DL (74-106) H Calcium Level 9.1 MG/DL (8.5-10.1) Total Bilirubin 1.5 MG/DL (0.2-1.0) H Direct Bilirubin 0.2 MG/DL (0.0-0.3) Aspartate Amino Transf (AST/SGOT) 23 U/L (15-37) Alanine Aminotransferase (ALT/SGPT) 28 U/L (12-78) Alkaline Phosphatase 75 U/L (46-116) Total Creatine Kinase 145 U/L (26-308) Troponin I 0.004 ng/mL (0.000-0.056) Pro-B-Type Natriuretic Peptide 65 pg/mL (0-125) Total Protein 7.5 G/DL (6.4-8.2) Albumin 3.8 G/DL (3.4-5.0) Globulin 3.7 g/dL Albumin/Globulin Ratio 1.0 (1.0-2.7) KASIA PAGE Sep 04, 2017 15:10
--- NOTE | 2017-09-04 16:15 | Consultation ---
DATE OF CONSULTATION: 09/04/2017 NEUROLOGICAL CONSULTATION CONSULTING PHYSICIAN: Maciej Silva M.D. REQUESTING PHYSICIAN: Gonzalez Leija M.D. HISTORY OF PRESENT ILLNESS: The patient is a 72-year-old female seen Neurological consultation to evaluate new onset of unsteady gait. The patient informed me that three days ago on Sunday around 4 p.m. or 5 p.m., she developed new onset of being "woozy" this actually related to sensation of unsteadiness when she ambulated. She felt fairly well while being supine. There was no evidence of vertigo. No hearing loss. She was brought to emergency room, her blood pressure 165/100, heart rate of 93, she was afebrile. She felt some throbbing in her head although currently she does not recall it. There was no nausea, no vomiting. She was able to drive to the hospital on her own. The patient reported that she has been eating a lot and a result her blood pressure was elevated. EKG with normal sinus rhythm, no PVCs, no ectopies. The patient was given meclizine and sent home. The patient was readmitted due to continuous sensation of unsteady gait, which was not improving. At this time, her blood pressure was 129/90, she was afebrile. Lab work was obtained, this revealed normal CBC study. Chemistry panel unremarkable except blood sugar 127, total bilirubin 1.5. Coagulation panel was normal. Urinalysis was normal. Her initial CAT scan of the brain revealed no acute intracranial abnormalities. There was periventricular deep white matter ischemic changes but also bilateral maxillary ethmoid sphenoid and frontal sinuses plus extensive calcifications of nasal fossa. Chest x-ray, no acute process noted. Since admission to present, she remained unchanged indicating with supine she is feeling fairly well but when getting up and trying to ambulate she feels quite unsteady. The patient now scheduled for aspirin, diltiazem, meclizine, pravastatin. PAST MEDICAL HISTORY: In January of this year, the patient was admitted to this hospital with similar symptomatology of getting unsteady gait, she has been seen by Neurology, symptoms were transient and resolved while hospitalized. The etiology of this condition was not fully established but the patient become asymptomatic. She went home. There was evidence of atrial flutter following which she had extensive cardiac workup as outpatient, the conclusion was that the patient has no evidence of cardiac arrhythmia requiring no anticoagulation. There is a history of hypertension, history of hyperlipidemia, allergic rhinitis. MEDICATIONS: Her treatment prior to admission included diltiazem, meclizine, pravastatin, and aspirin. ALLERGIES: None reported. SOCIAL HISTORY: She lives alone. 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 No alcohol. No drug abuse. Nonsmoker. FAMILY HISTORY: Noncontributory. REVIEW OF SYMPTOMS: The patient indicated that while supine in bed, she feels fairly well. She has no headache. No dizziness. No chest pain. No palpitations. No respiratory problems. Denies abdominal pain or discomfort. No urine or bowel incontinence. The patient indicated only when is she is getting up she felt unsteady. PHYSICAL EXAMINATION: GENERAL: A well-developed, morbidly obese, pleasant lady, not in acute distress, lying comfortably in bed. VITAL SIGNS: Temperature 97.3, blood pressure 124/83, heart rate of 92. HEENT: Head normocephalic. There is no evidence of trauma. Eyes, ears, and throat are clear. NECK: Supple. No meningeal signs. MUSCULOSKELETAL: Unremarkable. There is no deformities. Peripheral pulses 1+ symmetric. MENTAL STATUS: The patient is alert and oriented x3. Speech is fluent. Language intact. She is somewhat forgetful but coherent. Follow command and appears to be very appropriate. She is somewhat anxious that "diagnosis will be done properly". CRANIAL NERVE II: Pupils both responding to light and accommodation. Extraocular movement intact. No nystagmus. CRANIAL NERVE V: Normal corneal responses. CRANIAL NERVE VII: No facial asymmetry. CRANIAL NERVE VIII: Normal hearing. No positional vertigo. CRANIAL NERVE IX THROUGH XII: Tongue is in midline. Symmetric palate elevation. MOTOR EXAMINATION: Revealed normal muscle tone. Strength 5/5 in all extremities. No involuntary movement. Deep tendon reflexes 1+ symmetric with downgoing toes on both sides. Coordination normal swsjmg-[id number]-zxxb, heel-singh testing. Positive Romberg test. SENSORY EXAM: Normal to pinprick and light touch. Gait, the patient has a wide-based gait and somewhat unsteady. Her puqphs-nr-nxtq and csxt-ta-[id number] testing were normal. IMPRESSION: 1. Recurrent gait ataxia, etiology undetermined, rule out transient ischemic attack/stroke in the posterior circulation. 2. Ischemic cerebrovascular disease, multiple lacunar strokes. 3. Hypertension. 4. Morbid obesity. 5. Hyperlipidemia. RECOMMENDATIONS: Review MRI of the brain without contrast. May need also MR angiogram of the brain to evaluate cerebrovascular system. Recheck a coagulation panel, sedimentation rate, AUBREY. Get carotid duplex study. Maintain cardiac monitoring for any paroxysmal cardiac abnormality. Treatment to include aspirin/Plavix/statins. Continue with proper blood pressure control but avoid systolic blood pressure below 120. We will follow with you. Thank you for allowing me to see this interesting patient in neurological consultation. Maciej Patrick Silva DR: Pravin JOB#: [id number] CC:
--- NOTE | 2017-09-04 16:32 | History & Physical ---
History and Physical History & Physicial Dictated for Int Med-Dr Leija no. [id number]. DUSTY BARBA Sep 04, 2017 16:32
--- NOTE | 2017-09-04 16:34 | Diagnostic Imaging Report ---
Indication: DIZZY dizziness, vertigo Technique: sagittal T1 fast spin echo, axial T1 FLAIR PROPELLER, axial and sagittal T2 FLAIR PROPELLER, axial T2 FS PROPELLER, axial T2* GRE, axial diffusion weighted images. ADC and exponential ADC maps generated Comparison: There is an made to brain CT dated 08/03/2017. No prior MRIs Findings: No abnormal areas of restricted diffusion to suggest acute infarction. No acute hemorrhage or edema. No mass effect nor midline shift. There is mild age-related enlargement of the ventricles and extra-axial CSF spaces. There are bilateral deep white matter T2 hyperintensities. There is right maxillary and bilateral ethmoid sinus disease. Impression: Mild age-related volume loss Bilateral deep white matter T2 hyperintensities, most likely chronic microvascular ischemic change, demyelinating disease is also a possibility Negative for acute intracranial bleed, mass effect, or infarct
--- NOTE | 2017-09-04 16:42 | Diagnostic Imaging Report ---
Indication: Altered metal status Technique: Axial and coronal ASSET, postcontrast coronal TRICKS images were obtained. Subtracted images and rotational MIP reconstructions were generated Comparison: None Findings: Unremarkable aortic arch. Patent nonstenotic right brachiocephalic artery. Patent nonstenotic right common and internal carotid artery. Patent and nonstenotic but tortuous right proximal subclavian artery. Patent nonstenotic right vertebral artery. The vertebral arteries are codominant. Patent nonstenotic left common carotid and internal carotid arteries. Note that the axial ASSET images suggest a polypoid stenosis of the left internal carotid artery origin, but this is not confirmed on the postcontrast images and is likely artifactual. Nonstenotic proximal left subclavian artery. Possible 50% origin stenosis of the left vertebral artery. Impression: Negative for evidence of significant extracranial cerebrovascular insufficiency
--- NOTE | 2017-09-04 16:45 | Diagnostic Imaging Report ---
Indications: Altered metal status and dizziness/vertigo Technique: 3D [id number] images obtained through the [facility] [place]. MIP reconstructions were generated in multiple rotational projections Comparison: None Findings: Patent and nonstenotic bilateral distal internal carotid arteries. Patent and nonstenotic bilateral M1 segment, A1 segments, and proximal branches. And anterior communicating artery is not is only identified. Codominant bilateral distal vertebral arteries. Patent nonstenotic basilar artery. Patent and nonstenotic bilateral PICAs. Patent bilateral superior cerebellar arteries. Patent bilateral P1 segments and proximal posterior cerebral branches. Neither posterior communicating artery is demonstrated. No definite evidence of aneurysm or vascular malformation. Impression: Negative for evidence of significant proximal intracranial cerebrovascular insufficiency
--- NOTE | 2017-09-04 17:45 | Consultation ---
DATE OF CONSULTATION: 09/04/2017 CARDIOLOGY CONSULTATION CONSULTING PHYSICIAN: Jameson Da Silva M.D. ATTENDING PHYSICIAN: Gonzalez Leija M.D. REFERRING PHYSICIAN: Gonzalez Leija M.D. REASON FOR REFERRAL: Hypertension. HISTORY OF PRESENT ILLNESS: This is a 72-year-old female with history of multiple medical problems. The patient presented to the emergency room here at [facility] because of what she called lightheadedness that occurred. It started while watching TV. She usually indicates that symptoms are sign that her blood pressure is poorly controlled and eventually she came to the emergency room at [facility] because elevated blood pressure was documented and according to the patient with blood pressure being as high as 200 although that has not been documented here. Nevertheless, she was admitted to the hospital and she is undergoing further evaluation. On detailed questioning, it appears that her symptoms are really not one of lightheadedness but one of being off balance as she does not know what the next . She does not have any chest pain or pressure. There is no PND. No orthopnea. She uses one large pillow and two flap pillows and she does not feel fainting, heart pounding, or palpitations. PAST MEDICAL HISTORY: Positive for high blood pressure. No history of heart attack. She has history of hyperlipidemia. No cancer. No stroke. No hepatitis, tuberculosis, asthma, emphysema, ulcers, kidney problems, liver problems, thyroid problems, anemia, or arthritis. She has had prior evaluation here, an episode of atrial flutter was documented at that time. She also had some kind of lung mass at that time that was eventually evaluated, felt to be chronic scar rather than a mass. ALLERGIES: She has no known drug allergies. SOCIAL HISTORY: She does not smoke or drink alcoholic beverages. No drug use. REVIEW OF SYSTEMS: GASTROINTESTINAL: She denies any nausea or vomiting. No diarrhea or constipation. No bloody or black stool. GENITOURINARY: Negative. PULMONARY: Negative. CONSTITUTIONAL: Negative. NEUROLOGICAL: She does have sensation of being off balance as mentioned. No blurred vision, double vision, or paralysis. PHYSICAL EXAMINATION: GENERAL: Shows to be obese, elderly female in no apparent respiratory distress. NECK: Supple. No jugular venous distention. LUNGS: Clear to auscultation and percussion. CARDIAC: S1 is normal. S2 is normal. Regular rate and rhythm. No heaves, thrills, gallops, or rubs are noted. ABDOMEN: Soft, obese. Positive bowel sounds. Nontender. EXTREMITIES: There is no clubbing, cyanosis, nor is there any edema. NEUROLOGIC: She is awake, alert, responsive, and in no apparent respiratory distress. LABORATORY VALUES: An echocardiogram performed today shows ejection fraction of 65% to 70% with technically difficult study. She had no significant valvular regurgitation. There was mild diastolic relaxation abnormality, pulmonary artery systolic pressure is inaccurate due to insignificant tricuspid regurgitation. Laboratory values, white count of 7.5, hemoglobin 14.4, and platelet count of 306,000. Sodium is 143, potassium 3.6, chloride 107, bicarbonate 25, BUN of 11, creatinine 1.0, and glucose of 127. Troponin less than 0.012. Liver function tests were normal. BNP was only 65. INR 0.9 and PTT of 23. Urinalysis is fairly unremarkable. She has had an x-ray of her chest that showed no acute processes. She had CT scan of her head that showed chronic age-related changes, negative for acute intracranial bleed or mass effect, there is some sinus disease being documented. Her electrocardiogram, sinus rhythm, leftward axis, no ST-T abnormalities, and there may be some voltage criteria for left ventricular hypertrophy being documented. Her telemetry data so far obtained during the hospitalization appears to show sinus rhythm. No significant arrhythmias are noted on the EKG. ASSESSMENT AND PLAN: 1. Hypertension. 2. Imbalance sensation. 3. Obesity. 4. Hyperlipidemia. RECOMMENDATIONS: Dr. Jerry, this patient was seen in cardiac consultation. The patient's blood pressure appears to be relatively well controlled, although there are some high readings at times still. She has had as she recalls several episodes of elevated blood pressure and recommended that she have blood pressure readings at home. Avoid salt intake at all, excessive caffeine, and/or alcohol intake. She does indicate that she had some highly seasoned food for Thanksgiving prior to these episodes occurring and was instructed to monitor her salt intake and decrease as necessary. She may require an additional blood pressure medication to her usual dose of diltiazem that she takes at home, possibly in the form of an ADEEL inhibitor for tighter control of her blood pressure. This will be provided in the form of lisinopril of 2.5 mg for the time being once her neurological evaluation is completed. Jameson Da Silva M.D. DR: Cary JOB#: [id number] CC:
--- NOTE | 2017-09-04 18:15 | History and Physical Report ---
DATE OF ADMISSION: 09/03/2017 CHIEF COMPLAINT: The patient is a 72-year-old female, who presents with chief complaint of dizziness. HISTORY OF PRESENT ILLNESS: The patient was admitted to [facility] in 01/2017 for vertigo. Please see history and physical and discharge summary dictated at that time. The patient's current history of present illness began approximately 2 days ago. The patient began to experience dizziness. The patient denies room spinning. The patient states she was "unsteady" on her feet. When she closed her eyes, she felt like she was going to fall over. The patient initially was evaluated at [facility] on 09/02/2017. The patient was found to have elevated blood pressure of 206 systolic. The patient was discharged home. The patient returned to [facility] on 09/03/2017. The patient was admitted for intractable vertigo. PAST MEDICAL HISTORY: Significant for: 1. Hypertension. 2. Hypercholesterolemia. 3. Allergic rhinitis. 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 CURRENT MEDICATIONS: 1. Aspirin 81 mg one tablet p.o. daily. 2. Diltiazem 180 mg one tablet p.o. daily. 3. Meclizine 25 mg one tablet p.o. 3 times daily p.r.n. 4. Pravachol 40 mg one tablet p.o. nightly. ALLERGIES: No known drug allergies. SOCIAL HISTORY: The patient is a and lives alone. The patient denies tobacco or alcohol use. REVIEW OF SYSTEMS: CONSTITUTIONAL: The patient denies weight loss or weight gain. The patient denies fevers or chills. HEENT: The patient denies ear or throat pain. The patient denies headache. CARDIOVASCULAR: The patient denies palpitations or chest pain. CHEST: The patient denies wheeze or shortness of breath. ABDOMINAL: The patient denies nausea, vomiting, diarrhea, or constipation. GENITOURINARY: The patient denies dysuria or increased frequency of urination. NEUROMUSCULAR: The patient complains of vertigo as above. The patient denies seizures or generalized weakness. PHYSICAL EXAMINATION: VITAL SIGNS: Temperature 98.8, respirations 18, pulse 93, and blood pressure 139/90. GENERAL: The patient is a well-developed, well-nourished female in no apparent distress. HEENT: Eyes, pupils are equal and responsive to light and accommodation. Extraocular movements are intact. NECK: Supple without lymphadenopathy. CHEST: Lungs are clear to auscultation bilaterally without wheezes or rales. CARDIOVASCULAR: Regular rhythm and rate. S1 and S2 are normal without murmurs, rubs, or gallops. ABDOMEN: Soft, nontender, nondistended. Positive bowel sounds. No evidence of hepatosplenomegaly. Currently, no rebound or guarding noted. EXTREMITIES: Negative for clubbing, cyanosis, or edema. RECTAL: Refused. GENITAL: Refused. NEUROLOGIC: Cranial nerves II through XII grossly intact without focal deficits. Motor strength is 5/5 bilaterally . Deep tendon reflexes are 2+, plantar. LABORATORY AND DIAGNOSTIC STUDIES: WBC 7.5, hemoglobin 14.8, hematocrit 43.6, and platelets 306,000. Sodium 143, potassium 3.6, chloride 107, CO2 25, BUN 11, creatinine 1.0, and glucose 127. Troponin 0.004. CT scan of the brain failed to demonstrate acute hemorrhage or infarct. ASSESSMENT: This is a 72-year-old female with: 1. Ataxia. 2. Vertigo. 3. Depression. 4. Hypertension. 5. Hypercholesterolemia. 6. History of allergic rhinitis. TREATMENT: 1. Ataxia/vertigo. Cardiology consultation has been obtained with Dr. Jameson Da Silva. Neurology consultation has been obtained with Dr. Silva. An MRI of the brain is pending. Carotid duplex/Doppler of the bilateral carotid arteries are pending. We will follow recommendations of cardiology and neurology. 2. Hypertension. Continue diltiazem as above. 3. Hypercholesterolemia. Continue Pravachol as above. 4. Allergic rhinitis. Kyle Rowan M.D. DR: FAN JOB#: [id number] CC:
[2017-09-05] VITALS: BP 110/76
[2017-09-05 04:00] VITALS: BP 116/76
[2017-09-05 08:16] VITALS: BP 128/81
[2017-09-05 08:57] LABS: BASOPHILS % (AUTO) 1.6 % (0.0-2.0); EOSINOPHILS % (AUTO) 1.5 % (0.0-3.0); LYMPHOCYTES % (AUTO) 50.3 % (20.0-45.0); MEAN CORPUSCULAR HEMOGLOBIN 30.6 PG (27.0-31.0); MEAN CORPUSCULAR HGB CONC 32.6 G/DL (32.0-36.0); MEAN CORPUSCULAR VOLUME 94 FL (80-99); MONOCYTES % (AUTO) 8.6 % (1.0-10.0); PLATELET COUNT 300 K/UL (150-450); RED BLOOD COUNT 4.52 M/UL (4.20-5.40)
[2017-09-05 09:30] LABS: ALANINE AMINOTRANSFERASE 28 U/L (12-78); ALBUMIN/GLOBULIN RATIO 1.1 (1.0-2.7); ANION GAP 10 mmol/L (5-15); ASPARTATE AMINO TRANSFERASE 18 U/L (15-37); CALCIUM 8.5 MG/DL (8.5-10.1); CARBON DIOXIDE 25 MMOL/L (21-32); CHLORIDE 109 MMOL/L (98-107); CREATININE 1.1 MG/DL (0.55-1.30); MAGNESIUM 2.1 MG/DL (1.8-2.4); POTASSIUM 3.3 MMOL/L (3.5-5.1); SODIUM 144 MMOL/L (136-145); TOTAL PROTEIN 6.7 G/DL (6.4-8.2)
[2017-09-05] MEDS: Aspirin EC 81mg tab ORAL SCH (09:34)
[2017-09-05] MEDS: dilTIAZem HCl CD 180mg cap ORAL SCH (09:35)
[2017-09-05] MEDS: Heparin 5000 units/ml inj SUBQ SCH ×2 (09:42→20:38)
[2017-09-05 10:03] LABS: BILIRUBIN,DIRECT 0.3 MG/DL (0.0-0.3)
[2017-09-05 10:20] LABS: CHOLESTEROL 233 MG/DL (< 200)
[2017-09-05 11:42] VITALS: BP 133/88
--- NOTE | 2017-09-05 12:27 | Internal Med Progress Note ---
Subjective Date of Service: Sep 05, 2017 Physician Name Kyle Barba Attending Physician Gonzalez Leija MD Current Medications Medications (Trade) Dose Ordered Sig/Joseph Route PRN Reason Start Time Stop Time Status Last Admin Dose Admin Acetaminophen (Tylenol) 650 mg Q6H PRN ORAL Mild Pain/Temp > 100.5 09/04/17 07:30 10/04/17 07:29 Aspirin (Ecotrin) 81 mg DAILY ORAL 09/04/17 09:00 10/04/17 08:59 09/05/17 09:34 Clopidogrel Bisulfate (Plavix) 75 mg DAILY ORAL 09/04/17 13:30 10/04/17 13:29 Dextrose (Dextrose 50%) STAT PRN IV Hypoglycemia 09/04/17 07:15 10/04/17 07:14 Diltiazem HCl (Cardizem CD) 180 mg DAILY ORAL 09/04/17 09:00 10/04/17 08:59 09/05/17 09:35 Heparin Sodium (Porcine) (Heparin 5000 units/ml) 5,000 units EVERY 12 HOURS SUBQ 09/04/17 09:00 10/04/17 08:59 09/05/17 09:42 Ondansetron HCl (Zofran) 4 mg Q4HR PRN IVP Nausea & Vomiting 09/04/17 07:30 10/04/17 07:29 Pravastatin Sodium (Pravachol) 40 mg BEDTIME ORAL 09/04/17 21:00 10/04/17 20:59 09/04/17 20:37 Allergies: Coded Allergies: No Known Allergies (Unverified , 03/21/17) ROS Limited/Unobtainable: No Constitutional: Reports: no symptoms HEENT: Reports: no symptoms Cardiovascular: Reports: no symptoms Respiratory: Reports: no symptoms Gastrointestinal/Abdominal: Reports: no symptoms Genitourinary: Reports: no symptoms 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: Reports: other - ataxia Subjective 72 YO F admitted with uncontrolled hypertension and ataxia. Await carotid duplex doppler. Cover for Int Med-Dr Leija Objective Last Vital Signs Date Time Temp Pulse Resp B/P (MAP) Pulse Ox O2 Delivery O2 Flow Rate FiO2 09/05/17 11:42 97.9 77 18 133/88 100 09/05/17 04:00 Room Air 21 General Appearance: WD/WN, no apparent distress, alert EENT: PERRL/EOMI, normal ENT inspection, TMs normal Neck: non-tender, normal alignment, supple, normal inspection Cardiovascular: normal peripheral pulses, normal rate, regular rhythm, no gallop/murmur, no JVD Respiratory/Chest: chest wall non-tender, lungs clear, normal breath sounds, no respiratory distress, no accessory muscle use Abdomen: normal bowel sounds, non tender, soft, no organomegaly, no mass Extremities: normal range of motion Neurologic: 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 car 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 grossly normal, no motor/sensory deficits, abnormal gait Skin: normal pigmentation, warm/dry Laboratory Tests Test 09/05/17 08:35 White Blood Count 8.0 K/UL (4.8-10.8) Red Blood Count 4.52 M/UL (4.20-5.40) Hemoglobin 13.8 G/DL (12.0-16.0) Hematocrit 42.4 % (37.0-47.0) Mean Corpuscular Volume 94 FL (80-99) Mean Corpuscular Hemoglobin 30.6 PG (27.0-31.0) Mean Corpuscular Hemoglobin Concent 32.6 G/DL (32.0-36.0) Red Cell Distribution Width 13.0 % (11.6-14.8) Platelet Count 300 K/UL (150-450) Mean Platelet Volume 8.0 FL (6.5-10.1) Neutrophils (%) (Auto) 38.0 % (45.0-75.0) L Lymphocytes (%) (Auto) 50.3 % (20.0-45.0) H Monocytes (%) (Auto) 8.6 % (1.0-10.0) Eosinophils (%) (Auto) 1.5 % (0.0-3.0) Basophils (%) (Auto) 1.6 % (0.0-2.0) Sodium Level 144 MMOL/L (136-145) Potassium Level 3.3 MMOL/L (3.5-5.1) L Chloride Level 109 MMOL/L (98-107) H Carbon Dioxide Level 25 MMOL/L (21-32) Anion Gap 10 mmol/L (5-15) Blood Urea Nitrogen 14 mg/dL (7-18) Creatinine 1.1 MG/DL (0.55-1.30) Estimat Glomerular Filtration Rate mL/min (>60) Glucose Level 106 MG/DL (74-106) Calcium Level 8.5 MG/DL (8.5-10.1) Phosphorus Level 2.6 MG/DL (2.5-4.9) Magnesium Level 2.1 MG/DL (1.8-2.4) Total Bilirubin 1.9 MG/DL (0.2-1.0) H Direct Bilirubin 0.3 MG/DL (0.0-0.3) Aspartate Amino Transf (AST/SGOT) 18 U/L (15-37) Alanine Aminotransferase (ALT/SGPT) 28 U/L (12-78) Alkaline Phosphatase 70 U/L (46-116) Troponin I 0.003 ng/mL (0.000-0.056) Total Protein 6.7 G/DL (6.4-8.2) Albumin 3.5 G/DL (3.4-5.0) Globulin 3.2 g/dL Albumin/Globulin Ratio 1.1 (1.0-2.7) Triglycerides Level 147 MG/DL (30-150) Cholesterol Level 233 MG/DL (< 200) H LDL Cholesterol 127 mg/dL (<100) H HDL Cholesterol 77 MG/DL (40-60) H Cholesterol/HDL Ratio 3.0 (3.3-4.4) L Intake and Output 09/05/17 09/06/17 19:00 07:00 Intake Total 240 ml Balance 240 ml Intake Oral 240 ml # Voids 2 Assessment/Plan Problem List: (1) Cerebral vascular disease (2) Uncontrolled hypertension Assessment & Plan: Continue diltiazem per cardiology (3) Ataxia Assessment & Plan: Neurology and cardiology workup negative so far. Await carotid duplex doppler result. (4) Unsteady gait (5) Vertigo Assessment & Plan: see neurology note. (6) Hypercholesteremia Assessment & Plan: Continue pravastatin Status: progressing KYLE BARBA Sep 05, 2017 12:27
--- NOTE | 2017-09-05 13:36 | Pulmonology Progress Note ---
Assessment/Plan Problems: (1) Acute encephalopathy (2) HTN (hypertension) (3) Unsteady gait (4) Altered mental status Assessment/Plan all noted MRI reviewed pt/ot f/u neuro recommendations. dc planning Subjective ROS Limited/Unobtainable: No Constitutional: Reports: no symptoms HEENT: Repors: no symptoms Allergies: Coded Allergies: No Known Allergies (Unverified , 03/21/17) Objective Last 24 Hour Vital Signs Date Time Temp Pulse Resp B/P (MAP) Pulse Ox O2 Delivery O2 Flow Rate FiO2 09/05/17 11:42 97.9 77 18 133/88 100 09/05/17 09:35 82 128/81 09/05/17 08:16 98.1 82 18 128/81 98 09/05/17 04:04 70 09/05/17 04:00 97.7 76 18 116/76 100 Room Air 21 09/05/17 01:10 93 09/05/17 01:05 85 09/05/17 01:00 80 09/05/17 00:00 97.7 76 20 110/76 100 Room Air 09/04/17 23:28 71 09/04/17 20:00 97.7 87 20 140/83 Room Air 09/04/17 19:39 96 09/04/17 17:10 100 09/04/17 17:05 97 09/04/17 17:00 92 09/04/17 16:00 91 09/04/17 15:20 97.2 96 18 137/84 100 Intake and Output 09/05/17 09/06/17 19:00 07:00 Intake Total 480 ml Balance 480 ml Intake Oral 480 ml # Voids 2 General Appearance: WD/WN HEENT: normocephalic Respiratory/Chest: chest wall non-tender, lungs clear Breasts: no masses Cardiovascular: normal peripheral pulses Abdomen: normal bowel sounds, soft, non tender Genitourinary: normal external genitalia Extremities: no clubbing Skin: no lesions 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: 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 grossly normal, no motor/sensory deficits Laboratory Tests 09/05/17 08:35: White Blood Count 8.0, Red Blood Count 4.52, Hemoglobin 13.8, Hematocrit 42.4, Mean Corpuscular Volume 94, Mean Corpuscular Hemoglobin 30.6, Mean Corpuscular Hemoglobin Concent 32.6, Red Cell Distribution Width 13.0, Platelet Count 300, Mean Platelet Volume 8.0, Neutrophils (%) (Auto) 38.0L, Lymphocytes (%) (Auto) 50.3H, Monocytes (%) (Auto) 8.6, Eosinophils (%) (Auto) 1.5, Basophils (%) (Auto ) 1.6, Sodium Level 144, Potassium Level 3.3L, Chloride Level 109H, Carbon Dioxide Level 25, Anion Gap 10, Blood Urea Nitrogen 14, Creatinine 1.1, Estimat Glomerular Filtration Rate , Glucose Level 106, Calcium Level 8.5, Phosphorus Level 2.6, Magnesium Level 2.1, Total Bilirubin 1.9H, Direct Bilirubin 0.3, Aspartate Amino Transf (AST/SGOT) 18, Alanine Aminotransferase (ALT/SGPT) 28, Alkaline Phosphatase 70, Troponin I 0.003, Total Protein 6.7, Albumin 3.5, Globulin 3.2, Albumin/Globulin Ratio 1.1, Triglycerides Level 147, Cholesterol Level 233H, LDL Cholesterol 127H, HDL Cholesterol 77H, Cholesterol/HDL Ratio 3.0L Current Medications Medications (Trade) Dose Ordered Sig/Joseph Route PRN Reason Start Time Stop Time Status Last Admin Dose Admin Acetaminophen (Tylenol) 650 mg Q6H PRN ORAL Mild Pain/Temp > 100.5 09/04/17 07:30 10/04/17 07:29 Aspirin (Ecotrin) 81 mg DAILY ORAL 09/04/17 09:00 10/04/17 08:59 09/05/17 09:34 Clopidogrel Bisulfate (Plavix) 75 mg DAILY ORAL 09/04/17 13:30 10/04/17 13:29 Dextrose (Dextrose 50%) STAT PRN IV Hypoglycemia 09/04/17 07:15 10/04/17 07:14 Diltiazem HCl (Cardizem CD) 180 mg DAILY ORAL 09/04/17 09:00 10/04/17 08:59 09/05/17 09:35 Heparin Sodium (Porcine) (Heparin 5000 units/ml) 5,000 units EVERY 12 HOURS SUBQ 09/04/17 09:00 10/04/17 08:59 09/05/17 09:42 Ondansetron HCl (Zofran) 4 mg Q4HR PRN IVP Nausea & Vomiting 09/04/17 07:30 10/04/17 07:29 Pravastatin Sodium (Pravachol) 40 mg BEDTIME ORAL 09/04/17 21:00 10/04/17 20:59 09/04/17 20:37 SASHA HERNANDEZ Sep 05, 2017 13:36
[2017-09-05 15:23] VITALS: BP 115/69
--- NOTE | 2017-09-05 18:13 | Cardiology Progress Note ---
Assessment/Plan Assessment/Plan 1. Hypertension. 2. Imbalance sensation. 3. Obesity. 4. Hyperlipidemia. bp is controleld tele neg mri neg mra neg echo good lv fucntion ok to dc home dc tle Subjective Cardiovascular: Denies: chest pain, lightheadedness, palpitations Respiratory: Denies: shortness of breath Gastrointestinal/Abdominal: Denies: abdominal pain Genitourinary: Denies: burning Objective Last 24 Hour Vital Signs Date Time Temp Pulse Resp B/P (MAP) Pulse Ox O2 Delivery O2 Flow Rate FiO2 09/05/17 15:23 98.2 72 18 115/69 98 09/05/17 12:00 81 09/05/17 11:42 97.9 77 18 133/88 100 09/05/17 09:35 82 128/81 09/05/17 08:16 98.1 82 18 128/81 98 09/05/17 08:00 111 09/05/17 04:04 70 09/05/17 04:00 97.7 76 18 116/76 100 Room Air 21 09/05/17 01:10 93 09/05/17 01:05 85 09/05/17 01:00 80 09/05/17 00:00 97.7 76 20 110/76 100 Room Air 09/04/17 23:28 71 09/04/17 20:00 97.7 87 20 140/83 Room Air 09/04/17 19:39 96 General Appearance: no apparent distress, alert Neck: supple Cardiovascular: normal rate, regular rhythm Respiratory/Chest: lungs clear, normal breath sounds Abdomen: normal bowel sounds, non tender, soft Extremities: no swelling Intake and Output 09/05/17 09/06/17 19:00 07:00 Intake Total 480 ml Balance 480 ml Intake Oral 480 ml # Voids 2 Laboratory Tests Test 09/05/17 08:35 White Blood Count 8.0 K/UL (4.8-10.8) Red Blood Count 4.52 M/UL (4.20-5.40) Hemoglobin 13.8 G/DL (12.0-16.0) Hematocrit 42.4 % (37.0-47.0) Mean Corpuscular Volume 94 FL (80-99) Mean Corpuscular Hemoglobin 30.6 PG (27.0-31.0) Mean Corpuscular Hemoglobin Concent 32.6 G/DL (32.0-36.0) Red Cell Distribution Width 13.0 % (11.6-14.8) Platelet Count 300 K/UL (150-450) Mean Platelet Volume 8.0 FL (6.5-10.1) Neutrophils (%) (Auto) 38.0 % (45.0-75.0) L Lymphocytes (%) (Auto) 50.3 % (20.0-45.0) H Monocytes (%) (Auto) 8.6 % (1.0-10.0) Eosinophils (%) (Auto) 1.5 % (0.0-3.0) Basophils (%) (Auto) 1.6 % (0.0-2.0) Sodium Level 144 MMOL/L (136-145) Potassium Level 3.3 MMOL/L (3.5-5.1) L Chloride Level 109 MMOL/L (98-107) H Carbon Dioxide Level 25 MMOL/L (21-32) Anion Gap 10 mmol/L (5-15) Blood Urea Nitrogen 14 mg/dL (7-18) Creatinine 1.1 MG/DL (0.55-1.30) Estimat Glomerular Filtration Rate mL/min (>60) Glucose Level 106 MG/DL (74-106) Calcium Level 8.5 MG/DL (8.5-10.1) Phosphorus Level 2.6 MG/DL (2.5-4.9) Magnesium Level 2.1 MG/DL (1.8-2.4) Total Bilirubin 1.9 MG/DL (0.2-1.0) H Direct Bilirubin 0.3 MG/DL (0.0-0.3) Aspartate Amino Transf (AST/SGOT) 18 U/L (15-37) Alanine Aminotransferase (ALT/SGPT) 28 U/L (12-78) Alkaline Phosphatase 70 U/L (46-116) Troponin I 0.003 ng/mL (0.000-0.056) Total Protein 6.7 G/DL (6.4-8.2) Albumin 3.5 G/DL (3.4-5.0) Globulin 3.2 g/dL Albumin/Globulin Ratio 1.1 (1.0-2.7) Triglycerides Level 147 MG/DL (30-150) Cholesterol Level 233 MG/DL (< 200) H LDL Cholesterol 127 mg/dL (<100) H HDL Cholesterol 77 MG/DL (40-60) H Cholesterol/HDL Ratio 3.0 (3.3-4.4) KASIA MAJANO Sep 05, 2017 18:13
[2017-09-05 20:17] VITALS: BP 118/83
[2017-09-06 00:53] VITALS: BP 125/75
[2017-09-06 04:10] VITALS: BP 118/86
[2017-09-06 07:13] LABS: MEAN CORPUSCULAR HEMOGLOBIN 30.1 PG (27.0-31.0); MEAN CORPUSCULAR HGB CONC 32.2 G/DL (32.0-36.0); MEAN CORPUSCULAR VOLUME 94 FL (80-99); MEAN PLATELET VOLUME 7.3 FL (6.5-10.1); PLATELET COUNT 293 K/UL (150-450); RED CELL DISTRIBUTION WIDTH 12.6 % (11.6-14.8); WHITE BLOOD COUNT 8.9 K/UL (4.8-10.8)
[2017-09-06 07:29] LABS: ANION GAP 7 mmol/L (5-15); CALCIUM 8.9 MG/DL (8.5-10.1); CARBON DIOXIDE 28 MMOL/L (21-32); CHLORIDE 109 MMOL/L (98-107); CREATININE 1.2 MG/DL (0.55-1.30); POTASSIUM 3.9 MMOL/L (3.5-5.1); SODIUM 144 MMOL/L (136-145)
[2017-09-06 08:20] VITALS: BP 120/80
[2017-09-06 08:27] LABS: BAND NEUTROPHILS % (MANUAL) 0 % (0-8); BASOPHILS % (MANUAL) 0 % (0-2); EOSINOPHILS % (MANUAL) 3 % (0-3); LYMPHOCYTES % (MANUAL) 56 % (20-45); NEUTROPHILS % (MANUAL) 32 % (45-75); PLATELET ESTIMATE ADEQUATE; PLATELET MORPHOLOGY NORMAL; TOTAL CELLS COUNTED 100
[2017-09-06] MEDS: Aspirin EC 81mg tab ORAL SCH (09:41)
[2017-09-06 09:42] VITALS: BP 120/80
[2017-09-06] MEDS: dilTIAZem HCl CD 180mg cap ORAL SCH (09:42)
[2017-09-06] MEDS: Heparin 5000 units/ml inj SUBQ SCH (09:44)
[2017-09-06] MEDS ORDERED: PLAVIX75 MG ORAL (11:35)
--- NOTE | 2017-09-06 11:42 | Pulmonology Progress Note ---
Assessment/Plan Problems: (1) Acute encephalopathy (2) HTN (hypertension) (3) Unsteady gait (4) Altered mental status Assessment/Plan no new complains symptomatic treatment all noted MRI reviewed pt/ot f/u neuro recommendations. dc planning Subjective ROS Limited/Unobtainable: No Constitutional: Reports: no symptoms HEENT: Repors: no symptoms Respiratory: Reports: no symptoms Allergies: Coded Allergies: No Known Allergies (Unverified , 03/21/17) Objective Last 24 Hour Vital Signs Date Time Temp Pulse Resp B/P (MAP) Pulse Ox O2 Delivery O2 Flow Rate FiO2 09/06/17 09:42 80 120/80 09/06/17 08:20 97.9 80 18 120/80 96 09/06/17 04:10 97.0 71 21 118/86 98 Room Air 09/06/17 00:53 97.5 79 20 125/75 98 Room Air 09/05/17 20:17 98.1 82 20 118/83 98 Room Air 09/05/17 16:00 77 09/05/17 15:23 98.2 72 18 115/69 98 09/05/17 12:00 81 09/05/17 11:42 97.9 77 18 133/88 100 Intake and Output 09/06/17 09/07/17 19:00 07:00 Intake Total 240 ml Balance 240 ml Intake Oral 240 ml # Voids 1 General Appearance: WD/WN HEENT: normocephalic, atraumatic Respiratory/Chest: chest wall non-tender, lungs clear Breasts: no masses Cardiovascular: normal peripheral pulses, normal rate Abdomen: normal bowel sounds, soft, non tender Genitourinary: normal external genitalia Skin: no rash 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: 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 Laboratory Tests 09/06/17 06:50: White Blood Count 8.9, Red Blood Count 4.70, Hemoglobin 14.2, Hematocrit 44.0, Mean Corpuscular Volume 94, Mean Corpuscular Hemoglobin 30.1, Mean Corpuscular Hemoglobin Concent 32.2, Red Cell Distribution Width 12.6, Platelet Count 293, Mean Platelet Volume 7.3, Neutrophils (%) (Auto) , Lymphocytes (%) (Auto) , Monocytes (%) (Auto) , Eosinophils (%) (Auto) , Basophils (%) (Auto) , Differential Total Cells Counted 100, Neutrophils % (Manual) 32L, Lymphocytes % (Manual) 56H, Monocytes % (Manual) 9, Eosinophils % (Manual) 3, Basophils % ( Manual) 0, Band Neutrophils 0, Platelet Estimate Adequate, Platelet Morphology Normal, Red Blood Cell Morphology Normal, Sodium Level 144, Potassium Level 3.9 , Chloride Level 109H, Carbon Dioxide Level 28, Anion Gap 7, Blood Urea Nitrogen 13, Creatinine 1.2, Estimat Glomerular Filtration Rate , Glucose Level 95, Calcium Level 8.9 Current Medications Medications (Trade) Dose Ordered Sig/Joseph Route PRN Reason Start Time Stop Time Status Last Admin Dose Admin Acetaminophen (Tylenol) 650 mg Q6H PRN ORAL Mild Pain/Temp > 100.5 09/04/17 07:30 10/04/17 07:29 Aspirin (Ecotrin) 81 mg DAILY ORAL 09/04/17 09:00 10/04/17 08:59 09/06/17 09:41 Clopidogrel Bisulfate (Plavix) 75 mg DAILY ORAL 09/04/17 13:30 10/04/17 13:29 Dextrose (Dextrose 50%) STAT PRN IV Hypoglycemia 09/04/17 07:15 10/04/17 07:14 Diltiazem HCl (Cardizem CD) 180 mg DAILY ORAL 09/04/17 09:00 10/04/17 08:59 09/06/17 09:42 Heparin Sodium (Porcine) (Heparin 5000 units/ml) 5,000 units EVERY 12 HOURS SUBQ 09/04/17 09:00 10/04/17 08:59 09/06/17 09:44 Ondansetron HCl (Zofran) 4 mg Q4HR PRN IVP Nausea & Vomiting 09/04/17 07:30 10/04/17 07:29 Pravastatin Sodium (Pravachol) 40 mg BEDTIME ORAL 09/04/17 21:00 10/04/17 20:59 09/05/17 20:34 SASHA HERNANDEZ Sep 06, 2017 11:42
--- NOTE | 2017-09-07 14:12 | Discharge Summary ---
Discharge Summary Hospital Course Date of Admission Sep 03, 2017 at 23:13 Date of Discharge Sep 06, 2017 at 12:23 Admitting Diagnosis R/O CVA HPI Maryam Prieto is a 72 year old female who was admitted on Sep 03, 2017 at 23:13 for Rule Out Cerebral Vascular Accident Hospital Course [id number] Discharge Discharge Disposition Patient was discharged to Home (01) Discharge Diagnoses: Melba Johnson NP Sep 07, 2017 14:12
--- NOTE | 2017-09-07 14:34 | Diagnostic Imaging Report ---
APPROVED REPORT CPT Code: 27761 Vascular Symptoms Dizziness and Vertigo Syncope Comments: Prior carotid ultrasound done 01/25/2017. Doppler Spectral Velocity Analysis RightLeft RIGHT SIDE: CCA - Imaging reveals irregular, minimal plaque in the common carotid artery. arteries. The Doppler signal indicates the degree of stenosis is minimal (20%) in the internal carotid, and (10%) in the external carotid arteries. VERTEBRAL - The vertebral artery is patent, without evidence of stenosis or steal. LEFT SIDE: CCA/BULB - Imaging reveals irregular, minial plaque in the carotid bulb and external carotid arteries. VERTEBRAL - The vertebral artery is patent, without evidence of stenosis or steal. Incidental finding: Bilateral heterogenous thyroid gland with cystic elements.
--- NOTE | 2017-09-08 02:15 | Discharge Summary 2 SIG ---
DATE OF ADMISSION: 09/03/2017 DATE OF DISCHARGE: 09/06/2017 ATTENDING PHYSICIAN: Gonzalez Leija M.D. CONSULTANTS: 1. Michelle Jerry M.D. 2. Maciej Silva M.D. 3. Jameson Da Silva M.D. BRIEF HOSPITAL COURSE: The patient is a 72-year-old -[place] female, who presented with chief complaint of dizziness that started two days prior to admission and claims to be unsteady on her feet. When she closes her eyes, she felt like she was going to fall over. She was initially evaluated at ED on 09/02/2017 and was found to have elevated blood pressure of 206 systolic. She was then discharged home. She returned to [place] [facility] on 09/03/2017. Head CT done showed chronic age-related changes. Negative for acute intracranial bleed or mass effect. Chest x-ray showed no acute process. The patient is still with unsteady gait and positive Romberg sign. She was admitted to telemetry for neurologic evaluation. She had a brain MRI done that showed mild age-related volume loss with bilateral deep white matter T2 hyperintensity most likely chronic microvascular ischemic change. Negative for acute intracranial bleed, mass effect or infarct. Neck MRA was negative for significant extracranial cerebrovascular insufficiency. Head MRI and neck MRA was negative for significant proximal intracranial cerebrovascular insufficiency. She was continued on Plavix, aspirin, and Pravachol. Echocardiogram done showed ejection fraction of 65% to 70%. However, was technically difficult to perform. She had no significant valvular regurgitation. There was mild diastolic relaxation abnormality, pulmonary artery systolic pressure is inaccurate due to insignificant tricuspid regurgitation. Troponin was negative. EKG showed sinus rhythm with leftward axis. No ST to T-wave abnormalities. Telemetry data did not show any significant arrhythmia. She was advised to avoid salty intake or any excessive caffeine or alcohol intake. The patient has been taking diltiazem 100 mg daily at home. She had improved BP readings. She underwent physical therapy and occupational therapy. She was eventually discharged home. FINAL DIAGNOSES: 1. Cerebrovascular disease. 2. Uncontrolled hypertension. 3. Ataxia. 4. Vertigo. 5. Hypercholesterolemia. 6. Obesity. 7. Hypertension. 8. Acute encephalopathy. 9. Morbid obesity. DISPOSITION: The patient was discharged home. DISCHARGE MEDICATIONS: Continue with aspirin, diltiazem, and pravastatin as home medications. Add Plavix 75 mg daily. DISCHARGE INSTRUCTIONS: Follow up with Dr. Leija in a week. Michelle Jerry M.D. I have been assigned to dictate discharge summary on this account and I was not involved in the patient's management. Melba Johnson N.P. DR: Aneudy JOB#: [id number] CC:
== END 2017-09-06 12:23 | disposition home or self-care (01) | DRG 70 ==
LOC: EMR 22:00 → 2E 23:13 → EDBEDREQ 09-04 00:05
DX: I67.9 Cerebrovascular disease, unspecified (principal); G93.40 Encephalopathy, unspecified; I10 Essential (primary) hypertension; E66.01 Morbid (severe) obesity due to excess calories; R26.0 Ataxic gait; E78.00 Pure hypercholesterolemia, unspecified; J30.9 Allergic rhinitis, unspecified; R42 Dizziness and giddiness; Z79.82 Long term (current) use of aspirin; Z68.33 Body mass index [BMI] 33.0-33.9, adult; Z86.73 Personal history of transient ischemic attack (TIA), and cerebral infarction without residual deficits
CPT/HCPCS: 36415; 70450; 70544; 70548; 70551; 71010; 80048; 80053; 80061; 81003; 82248; 82550; 82553; 83735; 83880; 84100; 84484; 85007; 85025; 85610; 85730; 93005; 93306; 93880; 96360; 99284; 99285; A9585; J8499

== ENCOUNTER 2018-04-09 20:15 | Inpatient (IN) | payer MEDICARE ==
[~2018-04-09] VITALS: Ht 170.2 cm; Wt 90.0 kg
[~2018-04-09 20:15] MED LIST changes: +PLAVIX75 MG ORAL
[2018-04-09 20:39] VITALS: BP 163/103
[2018-04-09] MEDS ORDERED: Sodium Chloride 500ML 500 ML IV ONE (20:52)
[2018-04-09] MEDS ORDERED: Albuterol/Ipratropium 3ml neb HHN ONE (21:00)
[2018-04-09 21:25] LABS: APPEARANCE,URINE CLEAR; BILIRUBIN, URINE NEGATIVE (NEGATIVE); COLOR,URINE PALE YELLOW; GLUCOSE, URINE (UA) NEGATIVE (NEGATIVE); KETONES,URINE NEGATIVE (NEGATIVE); LEUKOCYTE ESTERASE ,URINE 1+ (NEGATIVE); NITRITE,URINE NEGATIVE (NEGATIVE); PH,URINE 8 (4.5-8.0); PROTEIN,URINE NEGATIVE (NEGATIVE); UROBILINOGEN,URINE NORMAL MG/DL (0.0-1.0)
--- NOTE | 2018-04-09 21:25 | Emergency Room Report ---
History of Present Illness General Chief Complaint: Shortness of breath Source: Patient, EMS Present Illness HPI Patient is a 72-year-old female presented after increased cough and difficulty breathing. Patient prior history of asthma. Patient recently been tapered off of steroids. She was having subjective chills. She had reported nonproductive cough with intermittent yellow sputum. She reports having a mild sore throat. She denies being a smoker. Patient reports presented taking medications for hypertension.She reports having increased chest discomfort with cough but denies any pain without any coughing.The patient had previously been admitted to the hospital by Dr. Leija. Allergies: Coded Allergies: No Known Allergies (Unverified , 03/21/17) Patient History Past Medical History: see triage record Last Menstrual Period: n/a Reviewed Nursing Documentation: PMH: Agreed; PSxH: Agreed Nursing Documentation-PMH Hx Cardiac Problems: Yes - paroxysmal a-flutter Hx Hypertension: Yes - High cholesterol Hx Asthma: Yes Hx COPD: No Hx Diabetes: No Hx Cancer: No Hx Gastrointestinal Problems: No Hx Dialysis: No Hx Neurological Problems: No Hx Cerebrovascular Accident: No Hx Seizures: No Review of Systems All Other Systems: negative except mentioned in HPI Physical Exam Vital Signs Date Time Temp Pulse Resp B/P (MAP) Pulse Ox O2 Delivery O2 Flow Rate FiO2 04/09/18 20:19 98.7 120 20 176/103 96 98.8 04/09/18 20:39 Room Air 100 Sp02 EP Interpretation: reviewed, normal General Appearance: normal inspection, alert, GCS 15, moderate distress, obese Head: atraumatic ENT: normal ENT inspection, hearing grossly normal, normal voice Neck: normal inspection, full range of motion, supple, no bony tend Respiratory: normal inspection, normal breath sounds, no respiratory distress, no retraction, wheezing Cardiovascular #1: regular rate, rhythm, no edema Gastrointestinal: normal inspection, normal bowel sounds, non tender, soft, no guarding, no hernia Genitourinary: no CVA tenderness Musculoskeletal: normal inspection, back normal, normal range of motion Neurologic: normal inspection, alert, oriented x3, responsive, wreath and garland maker III-XII nml as tested, speech normal Psychiatric: normal inspection, judgement/insight normal, mood/affect normal Skin: normal inspection, normal color, no rash Medical Decision Making Diagnostic Impression: Primary Impression: Acute febrile illness Additional Impressions: Sepsis Pneumonia ER Course Patient presented for shortness of breath. Differential included but was not limited to anemia, pneumonia, pneumothorax, myocardial infarction, pericardial effusion, congestive heart failure, acidosis. Because of complexity of patient' s case laboratory testing and imaging studies were ordered. Laboratory testing was notable for markedly elevated white blood count consistent with sepsis. Chest x-ray one view read by radiologist showed normal cardiac size without evident infiltrate. Patient was given IV fluids as well as IV antibiotics after cultures are obtained. The patient was discussed with Dr. Leija for inpatient management Labs Test 04/09/18 21:10 04/09/18 21:15 Urine Color Pale yellow Urine Appearance Clear Urine pH 8 (4.5-8.0) Urine Specific [place] 1.010 (1.005-1.035) Urine Protein Negative (NEGATIVE) Urine Glucose (UA) Negative (NEGATIVE) Urine Ketones Negative (NEGATIVE) Urine Occult Blood 2+ (NEGATIVE) Urine Nitrite Negative (NEGATIVE) Urine Bilirubin Negative (NEGATIVE) Urine Urobilinogen Normal MG/DL (0.0-1.0) Urine Leukocyte Esterase 1+ (NEGATIVE) Urine RBC 0-2 /HPF (0 - 2) Urine WBC 0-2 /HPF (0 - 2) Urine Squamous Epithelial Cells Few /LPF (NONE/OCC) Urine Bacteria Occasional /HPF (NONE) White Blood Count 22.7 K/UL (4.8-10.8) Red Blood Count 4.81 M/UL (4.20-5.40) Hemoglobin 14.6 G/DL (12.0-16.0) Hematocrit 43.2 % (37.0-47.0) Mean Corpuscular Volume 90 FL (80-99) Mean Corpuscular Hemoglobin 30.3 PG (27.0-31.0) Mean Corpuscular Hemoglobin Concent 33.8 G/DL (32.0-36.0) Red Cell Distribution Width 12.5 % (11.6-14.8) Platelet Count 204 K/UL (150-450) Mean Platelet Volume 7.4 FL (6.5-10.1) Neutrophils (%) (Auto) % (45.0-75.0) Lymphocytes (%) (Auto) % (20.0-45.0) Monocytes (%) (Auto) % (1.0-10.0) Eosinophils (%) (Auto) % (0.0-3.0) Basophils (%) (Auto) % (0.0-2.0) Differential Total Cells Counted 100 Neutrophils % (Manual) 78 % (45-75) Lymphocytes % (Manual) 12 % (20-45) Monocytes % (Manual) 9 % (1-10) Eosinophils % (Manual) 0 % (0-3) Basophils % (Manual) 0 % (0-2) Band Neutrophils 1 % (0-8) Platelet Estimate Adequate Platelet Morphology Normal Red Blood Cell Morphology Normal Sodium Level 138 MMOL/L (136-145) Potassium Level 3.1 MMOL/L (3.5-5.1) Chloride Level 103 MMOL/L (98-107) Carbon Dioxide Level 29 MMOL/L (21-32) Anion Gap 6 mmol/L (5-15) Blood Urea Nitrogen 15 mg/dL (7-18) Creatinine 0.8 MG/DL (0.55-1.30) Estimat Glomerular Filtration Rate mL/min (>60) Glucose Level 93 MG/DL (74-106) Calcium Level 9.0 MG/DL (8.5-10.1) Total Bilirubin 0.7 MG/DL (0.2-1.0) Aspartate Amino Transf (AST/SGOT) 26 U/L (15-37) Alanine Aminotransferase (ALT/SGPT) 25 U/L (12-78) Alkaline Phosphatase 75 U/L (46-116) Troponin I 0.000 ng/mL (0.000-0.056) Total Protein 7.3 G/DL (6.4-8.2) Albumin 3.5 G/DL (3.4-5.0) Globulin 3.8 g/dL Albumin/Globulin Ratio 0.9 (1.0-2.7) Last Vital Signs Date Time Temp Pulse Resp B/P (MAP) Pulse Ox O2 Delivery O2 Flow Rate FiO2 04/09/18 21:20 107 22 100 Room Air 21 04/09/18 20:39 98.8 163/103 98.8 Status: improved Disposition: ADMITTED INPATIENT Condition: Serious Referrals: NON PHYSICIAN (PCP) Konstantin Lang MD Apr 09, 2018 21:25
[2018-04-09 21:33] LABS: HEMATOCRIT 43.2 % (37.0-47.0); HEMOGLOBIN 14.6 G/DL (12.0-16.0); MEAN CORPUSCULAR VOLUME 90 FL (80-99); PLATELET COUNT 204 K/UL (150-450); RED BLOOD COUNT 4.81 M/UL (4.20-5.40); RED CELL DISTRIBUTION WIDTH 12.5 % (11.6-14.8)
[2018-04-09 21:34] LABS: WHITE BLOOD COUNT 22.7 K/UL (4.8-10.8)
[2018-04-09 21:45] LABS: ANION GAP 6 mmol/L (5-15); BLOOD UREA NITROGEN 15 mg/dL (7-18); CARBON DIOXIDE 29 MMOL/L (21-32); CHLORIDE 103 MMOL/L (98-107); CREATININE 0.8 MG/DL (0.55-1.30); POTASSIUM 3.1 MMOL/L (3.5-5.1); SODIUM 138 MMOL/L (136-145)
[2018-04-09] MEDS ORDERED: cefTRIAXone 1 GM in NS 55 ML IVPB ONE (21:45)
[2018-04-09] MEDS ORDERED: Azithromycin 500 MG in D5W 275 ML IVPB ONE (21:45)
[2018-04-09 21:52] LABS: ALANINE AMINOTRANSFERASE 25 U/L (12-78); ALBUMIN 3.5 G/DL (3.4-5.0); ALBUMIN/GLOBULIN RATIO 0.9 (1.0-2.7); ALKALINE PHOSPHATASE 75 U/L (46-116); ASPARTATE AMINO TRANSFERASE 26 U/L (15-37); BILIRUBIN,TOTAL 0.7 MG/DL (0.2-1.0)
--- NOTE | 2018-04-09 22:03 | Diagnostic Imaging Report ---
EXAM: XR Chest, 1 View CLINICAL HISTORY: SOB TECHNIQUE: Frontal view of the chest. COMPARISON: No relevant prior studies available. FINDINGS: Lungs: Unremarkable. No consolidation. Pleural space: Unremarkable. No pneumothorax. Heart: Unremarkable. No cardiomegaly. Mediastinum: Unremarkable. Bones/joints: Unremarkable. IMPRESSION: Normal chest x-ray.
[2018-04-09] MEDS ORDERED: Miralax 17gm pkt ORAL PRN (22:15)
[2018-04-09] MEDS ORDERED: Albuterol/Ipratropium 3ml neb HHN PRN (22:15)
[2018-04-09] MEDS ORDERED: Morphine Sulfate 4mg/ml Inj (IV USE ONLY) IVP PRN (22:15)
[2018-04-09] MEDS ORDERED: Vancomycin 1 GM in D5W 275 ML IV SCH (23:00)
[2018-04-10] VITALS: BP 148/92
[2018-04-10] MEDS: Vancomycin 1.5gm/D5W 250ml 250 ML IVPB SCH ×2 (00:30→22:54)
[2018-04-10 04:00] VITALS: BP 109/69
[2018-04-10 07:55] LABS: HEMATOCRIT 43.1 % (37.0-47.0); HEMOGLOBIN 14.2 G/DL (12.0-16.0); MEAN CORPUSCULAR VOLUME 90 FL (80-99); PLATELET COUNT 269 K/UL (150-450); RED CELL DISTRIBUTION WIDTH 12.5 % (11.6-14.8); WHITE BLOOD COUNT 21.6 K/UL (4.8-10.8)
[2018-04-10 08:00] VITALS: BP 129/75
[2018-04-10 08:06] LABS: ALBUMIN 3.3 G/DL (3.4-5.0); ANION GAP 7 mmol/L (5-15); BLOOD UREA NITROGEN 10 mg/dL (7-18); CALCIUM 8.5 MG/DL (8.5-10.1); CARBON DIOXIDE 28 MMOL/L (21-32); CHLORIDE 103 MMOL/L (98-107); CREATININE 0.9 MG/DL (0.55-1.30); PHOSPHORUS 3.3 MG/DL (2.5-4.9); SODIUM 138 MMOL/L (136-145)
[2018-04-10 08:09] LABS: POTASSIUM 2.7 MMOL/L (3.5-5.1)
[2018-04-10] MEDS: Heparin 5000 units/ml inj SUBQ SCH ×2 (09:00→21:29)
[2018-04-10] MEDS: dilTIAZem HCl CD 180mg cap ORAL SCH (09:48)
[2018-04-10] MEDS: Cefepime HCl 2 GM in D5W 110 ML IV SCH ×2 (09:48→21:27)
[2018-04-10] MEDS: Aspirin EC 81mg tab ORAL SCH (09:48)
[2018-04-10] MEDS ORDERED: Potassium Chloride 40 MEQ in Sodium Chloride 500ML 550 ML IVPB SCH (10:00)
--- NOTE | 2018-04-10 11:37 | Consultation ---
History of Present Illness General Date patient seen: Apr 10, 2018 Chief Complaint: Upper Respiratory Illness Present Illness HPI 72-year-old female with hx of Asthma, Hypertension presented to ER after increased cough and difficulty breathing. She was having subjective chills. She had reported nonproductive cough with intermittent yellow sputum. She reports having a mild sore throat. She reports having increased chest discomfort with cough but denies any pain without any coughing. Allergies: Coded Allergies: No Known Allergies (Unverified , 03/21/17) Medication History Scheduled Aspirin* (Aspir-Low*), 81 MG ORAL DAILY, (Reported) Clopidogrel Bisulfate* (Plavix*), 75 MG ORAL DAILY Diltiazem Hcl* (Cardizem Cd*), 180 MG ORAL DAILY, (Reported) Meclizine Hcl* (Meclizine*), 25 MG ORAL THREE TIMES A DAY Pravastatin Sod* (Pravachol*), 40 MG ORAL BEDTIME, (Reported) Patient History Healthcare decision maker Resuscitation status Full Code Advanced Directive on File No Past Medical/Surgical History Past Medical/Surgical History: (1) Cerebral vascular disease (2) HTN (hypertension) Review of Systems Constitutional: Reports: no symptoms Neurological: Reports: no symptoms Hematologic/Lymphatic: Reports: no symptoms All Other Systems: negative except mentioned in HPI Physical Exam General Appearance: WD/WN, no apparent distress Lines, tubes and drains: peripheral HEENT: normocephalic, atraumatic Neck: non-tender, normal alignment Respiratory/Chest: chest wall non-tender, lungs clear Breasts: no masses Cardiovascular/Chest: normal peripheral pulses Abdomen: normal bowel sounds Genitourinary/Rectal: normal genital exam Extremities: normal range of motion 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 normal Lymphatic: anterior cervical Last 24 Hour Vital Signs Date Time Temp Pulse Resp B/P (MAP) Pulse Ox O2 Delivery O2 Flow Rate FiO2 04/10/18 09:48 95 129/75 04/10/18 08:10 111 16 Room Air 21 04/10/18 04:21 108 04/10/18 04:00 97.9 102 20 109/69 94 97.9 04/10/18 00:00 99.0 116 20 148/92 95 99.0 04/09/18 23:56 114 04/09/18 23:35 99.0 120 24 140/85 100 Room Air 04/09/18 21:30 111 20 100 Room Air 21 04/09/18 21:20 107 22 100 Room Air 21 04/09/18 20:39 113 21 Room Air 100 04/09/18 20:39 98.8 113 21 163/103 100 98.8 04/09/18 20:19 98.7 120 20 176/103 96 98.8 Intake and Output 04/09/18 04/10/18 19:00 07:00 Intake Total 830 ml Balance 830 ml IV Total 830 ml # Voids 3 Laboratory Tests Test 04/09/18 21:10 04/09/18 21:15 04/10/18 06:08 Urine Color Pale yellow Urine Appearance Clear Urine pH 8 (4.5-8.0) Urine Specific [place] 1.010 (1.005-1.035) Urine Protein Negative (NEGATIVE) Urine Glucose (UA) Negative (NEGATIVE) Urine Ketones Negative (NEGATIVE) Urine Occult Blood 2+ (NEGATIVE) H Urine Nitrite Negative (NEGATIVE) Urine Bilirubin Negative (NEGATIVE) Urine Urobilinogen Normal MG/DL (0.0-1.0) Urine Leukocyte Esterase 1+ (NEGATIVE) H Urine RBC 0-2 /HPF (0 - 2) Urine WBC 0-2 /HPF (0 - 2) Urine Squamous Epithelial Cells Few /LPF (NONE/OCC) Urine Bacteria Occasional /HPF (NONE) White Blood Count 22.7 K/UL (4.8-10.8) *H 21.6 K/UL (4.8-10.8) H Red Blood Count 4.81 M/UL (4.20-5.40) 4.80 M/UL (4.20-5.40) Hemoglobin 14.6 G/DL (12.0-16.0) 14.2 G/DL (12.0-16.0) Hematocrit 43.2 % (37.0-47.0) 43.1 % (37.0-47.0) Mean Corpuscular Volume 90 FL (80-99) 90 FL (80-99) Mean Corpuscular Hemoglobin 30.3 PG (27.0-31.0) 29.7 PG (27.0-31.0) Mean Corpuscular Hemoglobin Concent 33.8 G/DL (32.0-36.0) 33.0 G/DL (32.0-36.0) Red Cell Distribution Width 12.5 % (11.6-14.8) 12.5 % (11.6-14.8) Platelet Count 204 K/UL (150-450) 269 K/UL (150-450) Mean Platelet Volume 7.4 FL (6.5-10.1) 7.8 FL (6.5-10.1) Neutrophils (%) (Auto) % (45.0-75.0) % (45.0-75.0) Lymphocytes (%) (Auto) % (20.0-45.0) % (20.0-45.0) Monocytes (%) (Auto) % (1.0-10.0) % (1.0-10.0) Eosinophils (%) (Auto) % (0.0-3.0) % (0.0-3.0) Basophils (%) (Auto) % (0.0-2.0) % (0.0-2.0) Differential Total Cells Counted 100 100 Neutrophils % (Manual) 78 % (45-75) H 63 % (45-75) Lymphocytes % (Manual) 12 % (20-45) L 20 % (20-45) Monocytes % (Manual) 9 % (1-10) 16 % (1-10) H Eosinophils % (Manual) 0 % (0-3) 1 % (0-3) Basophils % (Manual) 0 % (0-2) 0 % (0-2) Band Neutrophils 1 % (0-8) 0 % (0-8) Platelet Estimate Adequate Adequate Platelet Morphology Normal Normal Red Blood Cell Morphology Normal Sodium Level 138 MMOL/L (136-145) 138 MMOL/L (136-145) Potassium Level 3.1 MMOL/L (3.5-5.1) L 2.7 MMOL/L (3.5-5.1) *L Chloride Level 103 MMOL/L (98-107) 103 MMOL/L (98-107) Carbon Dioxide Level 29 MMOL/L (21-32) 28 MMOL/L (21-32) Anion Gap 6 mmol/L (5-15) 7 mmol/L (5-15) Blood Urea Nitrogen 15 mg/dL (7-18) 10 mg/dL (7-18) Creatinine 0.8 MG/DL (0.55-1.30) 0.9 MG/DL (0.55-1.30) Estimat Glomerular Filtration Rate mL/min (>60) mL/min (>60) Glucose Level 93 MG/DL (74-106) 104 MG/DL (74-106) Calcium Level 9.0 MG/DL (8.5-10.1) 8.5 MG/DL (8.5-10.1) Total Bilirubin 0.7 MG/DL (0.2-1.0) Aspartate Amino Transf (AST/SGOT) 26 U/L (15-37) Alanine Aminotransferase (ALT/SGPT) 25 U/L (12-78) Alkaline Phosphatase 75 U/L (46-116) Troponin I 0.000 ng/mL (0.000-0.056) Total Protein 7.3 G/DL (6.4-8.2) Albumin 3.5 G/DL (3.4-5.0) 3.3 G/DL (3.4-5.0) L Globulin 3.8 g/dL Albumin/Globulin Ratio 0.9 (1.0-2.7) L Phosphorus Level 3.3 MG/DL (2.5-4.9) Height (Feet): 5 Height (Inches): 7.00 Weight (Pounds): 198 Medications Current Medications Medications (Trade) Dose Ordered Sig/Joseph Route PRN Reason Start Time Stop Time Status Last Admin Dose Admin Acetaminophen (Tylenol) 650 mg Q4H PRN ORAL FEVER 04/09/18 22:15 05/09/18 22:14 04/10/18 06:19 Albuterol/ Ipratropium (Albuterol/ Ipratropium) 3 ml EVERY 4 HOURS PRN HHN Shortness of Breath 04/09/18 22:15 04/14/18 22:14 Aspirin (Ecotrin) 81 mg DAILY ORAL 04/10/18 09:00 05/10/18 08:59 04/10/18 09:48 Cefepime HCl 2 gm/ Dextrose 110 ml @ 220 mls/hr EVERY 12 HOURS IV 04/10/18 09:00 04/17/18 08:59 04/10/18 09:48 Clopidogrel Bisulfate (Plavix) 75 mg DAILY ORAL 04/10/18 09:00 05/10/18 08:59 Dextrose (Dextrose 50%) STAT PRN IV Hypoglycemia 04/09/18 22:15 05/09/18 22:14 Diltiazem HCl (Cardizem CD) 180 mg DAILY ORAL 04/10/18 09:00 05/10/18 08:59 04/10/18 09:48 Heparin Sodium (Porcine) (Heparin 5000 units/ml) 5,000 units EVERY 12 HOURS SUBQ 04/10/18 09:00 05/10/18 08:59 Morphine Sulfate (Morphine Sulfate) 2 mg EVERY 4 HOURS PRN IVP Severe Pain (Pain Scale 7-10) 04/09/18 22:15 04/16/18 22:14 Ondansetron HCl (Zofran) 4 mg Q6H PRN IVP Nausea & Vomiting 04/09/18 22:15 05/09/18 22:14 Polyethylene Glycol (Miralax) 17 gm DAILYPRN PRN ORAL Constipation 04/09/18 22:15 05/09/18 22:14 Potassium Chloride 40 meq/ Sodium Chloride 570 ml @ 142.5 mls/ hr ONCE IVPB 04/10/18 10:00 04/10/18 14:00 04/10/18 11:14 Pravastatin Sodium (Pravachol) 40 mg BEDTIME ORAL 04/10/18 21:00 05/10/18 20:59 Vancomycin HCl (Vanco rx to dose) 1 ea DAILY PRN MISC per rx protocol 04/10/18 07:30 05/10/18 07:29 Vancomycin HCl/ Dextrose 250 ml @ 167 mls/hr Q24H IVPB 04/09/18 23:00 04/14/18 22:59 04/10/18 00:30 Assessment/Plan Problem List: (1) Acute febrile illness ICD Codes: R50.9 - Fever, unspecified SNOMED: 245746156 (2) Pneumonia ICD Codes: J18.9 - Pneumonia, unspecified organism SNOMED: 259350088 (3) Cerebral vascular disease ICD Codes: I67.9 - Cerebrovascular disease, unspecified SNOMED: 70873208 (4) HTN (hypertension) ICD Codes: I10 - Essential (primary) hypertension SNOMED: 90194964 Assessment/Plan respiratory treatment IV abx check sputum check electrolytes IV steroids dvt prophylaxis. Michelle Jerry MD Apr 10, 2018 11:37
[2018-04-10 12:00] VITALS: BP 123/73
--- NOTE | 2018-04-10 12:17 | History & Physical ---
History and Physical History & Physicial Dictated for Int Med-Dr Leija no. [id number] Kyle Rowan MD Apr 10, 2018 12:17
--- NOTE | 2018-04-10 15:24 | Consultation ---
History of Present Illness General Date patient seen: Apr 10, 2018 Chief Complaint: Upper Respiratory Illness Present Illness HPI 72 y/o F with xh of Asthma, pA-flutter, HLD, HTN presented to ED on 04/09 with increasing cough w/ intermittent yellow sputum, chills, mild sore throat and difficulty breathing. Also reported chest discomfort with cough. Of note, patient recently tapered off of steroids. Afebrile WBC up to 22 CxR normal u.a no pyuria Allergies: Coded Allergies: No Known Allergies (Unverified , 03/21/17) Medication History Scheduled Aspirin* (Aspir-Low*), 81 MG ORAL DAILY, (Reported) Clopidogrel Bisulfate* (Plavix*), 75 MG ORAL DAILY Diltiazem Hcl* (Cardizem Cd*), 180 MG ORAL DAILY, (Reported) Meclizine Hcl* (Meclizine*), 25 MG ORAL THREE TIMES A DAY Pravastatin Sod* (Pravachol*), 40 MG ORAL BEDTIME, (Reported) Patient History Healthcare decision maker Resuscitation status Full Code Advanced Directive on File No Patient History Narrative Pmhx: as above Shx: reviewed Fhx: non contributory Review of Systems All Other Systems: negative except mentioned in HPI Physical Exam Physical Exam Narrative General Appearance: WD/WN, no apparent distress Lines, tubes and drains: peripheral HEENT: normocephalic, atraumatic Neck: non-tender, normal alignment Respiratory/Chest: chest wall non-tender, lungs clear Breasts: no masses Cardiovascular/Chest: normal peripheral pulses Abdomen: normal bowel sounds Genitourinary/Rectal: normal genital exam Extremities: normal range of motion 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 Lymphatic: anterior cervical Last 24 Hour Vital Signs Date Time Temp Pulse Resp B/P (MAP) Pulse Ox O2 Delivery O2 Flow Rate FiO2 04/10/18 12:00 97.5 82 18 123/73 100 97.5 04/10/18 12:00 85 04/10/18 09:48 95 129/75 04/10/18 08:10 111 16 Room Air 21 04/10/18 08:00 97.8 95 18 129/75 96 97.8 04/10/18 08:00 94 04/10/18 04:21 108 04/10/18 04:00 97.9 102 20 109/69 94 97.9 04/10/18 00:00 99.0 116 20 148/92 95 99.0 04/09/18 23:56 114 04/09/18 23:35 99.0 120 24 140/85 100 Room Air 04/09/18 21:30 111 20 100 Room Air 21 04/09/18 21:20 107 22 100 Room Air 21 04/09/18 20:39 113 21 Room Air 100 04/09/18 20:39 98.8 113 21 163/103 100 98.8 04/09/18 20:19 98.7 120 20 176/103 96 98.8 Intake and Output 04/09/18 04/10/18 19:00 07:00 Intake Total 830 ml Balance 830 ml IV Total 830 ml # Voids 3 Laboratory Tests Test 04/09/18 21:10 04/09/18 21:15 04/10/18 06:08 Urine Color Pale yellow Urine Appearance Clear Urine pH 8 (4.5-8.0) Urine Specific [place] 1.010 (1.005-1.035) Urine Protein Negative (NEGATIVE) Urine Glucose (UA) Negative (NEGATIVE) Urine Ketones Negative (NEGATIVE) Urine Occult Blood 2+ (NEGATIVE) H Urine Nitrite Negative (NEGATIVE) Urine Bilirubin Negative (NEGATIVE) Urine Urobilinogen Normal MG/DL (0.0-1.0) Urine Leukocyte Esterase 1+ (NEGATIVE) H Urine RBC 0-2 /HPF (0 - 2) Urine WBC 0-2 /HPF (0 - 2) Urine Squamous Epithelial Cells Few /LPF (NONE/OCC) Urine Bacteria Occasional /HPF (NONE) White Blood Count 22.7 K/UL (4.8-10.8) *H 21.6 K/UL (4.8-10.8) H Red Blood Count 4.81 M/UL (4.20-5.40) 4.80 M/UL (4.20-5.40) Hemoglobin 14.6 G/DL (12.0-16.0) 14.2 G/DL (12.0-16.0) Hematocrit 43.2 % (37.0-47.0) 43.1 % (37.0-47.0) Mean Corpuscular Volume 90 FL (80-99) 90 FL (80-99) Mean Corpuscular Hemoglobin 30.3 PG (27.0-31.0) 29.7 PG (27.0-31.0) Mean Corpuscular Hemoglobin Concent 33.8 G/DL (32.0-36.0) 33.0 G/DL (32.0-36.0) Red Cell Distribution Width 12.5 % (11.6-14.8) 12.5 % (11.6-14.8) Platelet Count 204 K/UL (150-450) 269 K/UL (150-450) Mean Platelet Volume 7.4 FL (6.5-10.1) 7.8 FL (6.5-10.1) Neutrophils (%) (Auto) % (45.0-75.0) % (45.0-75.0) Lymphocytes (%) (Auto) % (20.0-45.0) % (20.0-45.0) Monocytes (%) (Auto) % (1.0-10.0) % (1.0-10.0) Eosinophils (%) (Auto) % (0.0-3.0) % (0.0-3.0) Basophils (%) (Auto) % (0.0-2.0) % (0.0-2.0) Differential Total Cells Counted 100 100 Neutrophils % (Manual) 78 % (45-75) H 63 % (45-75) Lymphocytes % (Manual) 12 % (20-45) L 20 % (20-45) Monocytes % (Manual) 9 % (1-10) 16 % (1-10) H Eosinophils % (Manual) 0 % (0-3) 1 % (0-3) Basophils % (Manual) 0 % (0-2) 0 % (0-2) Band Neutrophils 1 % (0-8) 0 % (0-8) Platelet Estimate Adequate Adequate Platelet Morphology Normal Normal Red Blood Cell Morphology Normal Sodium Level 138 MMOL/L (136-145) 138 MMOL/L (136-145) Potassium Level 3.1 MMOL/L (3.5-5.1) L 2.7 MMOL/L (3.5-5.1) *L Chloride Level 103 MMOL/L (98-107) 103 MMOL/L (98-107) Carbon Dioxide Level 29 MMOL/L (21-32) 28 MMOL/L (21-32) Anion Gap 6 mmol/L (5-15) 7 mmol/L (5-15) Blood Urea Nitrogen 15 mg/dL (7-18) 10 mg/dL (7-18) Creatinine 0.8 MG/DL (0.55-1.30) 0.9 MG/DL (0.55-1.30) Estimat Glomerular Filtration Rate mL/min (>60) mL/min (>60) Glucose Level 93 MG/DL (74-106) 104 MG/DL (74-106) Calcium Level 9.0 MG/DL (8.5-10.1) 8.5 MG/DL (8.5-10.1) Total Bilirubin 0.7 MG/DL (0.2-1.0) Aspartate Amino Transf (AST/SGOT) 26 U/L (15-37) Alanine Aminotransferase (ALT/SGPT) 25 U/L (12-78) Alkaline Phosphatase 75 U/L (46-116) Troponin I 0.000 ng/mL (0.000-0.056) Total Protein 7.3 G/DL (6.4-8.2) Albumin 3.5 G/DL (3.4-5.0) 3.3 G/DL (3.4-5.0) L Globulin 3.8 g/dL Albumin/Globulin Ratio 0.9 (1.0-2.7) L Phosphorus Level 3.3 MG/DL (2.5-4.9) Height (Feet): 5 Height (Inches): 7.00 Weight (Pounds): 198 Medications Current Medications Medications (Trade) Dose Ordered Sig/Joseph Route PRN Reason Start Time Stop Time Status Last Admin Dose Admin Acetaminophen (Tylenol) 650 mg Q4H PRN ORAL FEVER 04/09/18 22:15 05/09/18 22:14 04/10/18 06:19 Albuterol/ Ipratropium (Albuterol/ Ipratropium) 3 ml EVERY 4 HOURS PRN HHN Shortness of Breath 04/09/18 22:15 04/14/18 22:14 Aspirin (Ecotrin) 81 mg DAILY ORAL 04/10/18 09:00 05/10/18 08:59 04/10/18 09:48 Cefepime HCl 2 gm/ Dextrose 110 ml @ 220 mls/hr EVERY 12 HOURS IV 04/10/18 09:00 04/17/18 08:59 04/10/18 09:48 Clopidogrel Bisulfate (Plavix) 75 mg DAILY ORAL 04/10/18 09:00 05/10/18 08:59 Dextrose (Dextrose 50%) STAT PRN IV Hypoglycemia 04/09/18 22:15 05/09/18 22:14 Diltiazem HCl (Cardizem CD) 180 mg DAILY ORAL 04/10/18 09:00 05/10/18 08:59 04/10/18 09:48 Heparin Sodium (Porcine) (Heparin 5000 units/ml) 5,000 units EVERY 12 HOURS SUBQ 04/10/18 09:00 05/10/18 08:59 Hydrocortisone (Solu-CORTEF) 60 mg EVERY 6 HOURS IV 04/10/18 18:00 05/10/18 17:59 Morphine Sulfate (Morphine Sulfate) 2 mg EVERY 4 HOURS PRN IVP Severe Pain (Pain Scale 7-10) 04/09/18 22:15 04/16/18 22:14 Ondansetron HCl (Zofran) 4 mg Q6H PRN IVP Nausea & Vomiting 04/09/18 22:15 05/09/18 22:14 Polyethylene Glycol (Miralax) 17 gm DAILYPRN PRN ORAL Constipation 04/09/18 22:15 05/09/18 22:14 Pravastatin Sodium (Pravachol) 40 mg BEDTIME ORAL 04/10/18 21:00 05/10/18 20:59 Vancomycin HCl (Vanco rx to dose) 1 ea DAILY PRN MISC per rx protocol 04/10/18 07:30 05/10/18 07:29 Vancomycin HCl/ Dextrose 250 ml @ 167 mls/hr Q24H IVPB 04/09/18 23:00 04/14/18 22:59 04/10/18 00:30 Assessment/Plan Assessment/Plan Abx: IV Vanco 04/09- Cefepime 04/10- Azithromycin x1 04/09 Ceftriaxone x1 04/09 Assessment: Cough, likely bronchitis/asthma exacerbation- no obvious PNA on CXR -CXR: No acute disease Leukocytosis, improving- recently tapered off steroids -u/a no pyuria -bcx p -sp cx p Asthma pA-flutter HLD HTN Plan: -Continue empiric IV Vanco and Cefepime for now -will narrow soon -f/u cx -Cdiff -Monitor CBC/BMP, temperatures -aspiration precautions Thank you for this consultation. Will continue to follow along with you. Cally Rothman M.D. Apr 10, 2018 15:24
[2018-04-10 16:00] VITALS: BP 124/78
--- NOTE | 2018-04-10 16:30 | History and Physical Report ---
DATE OF ADMISSION: 04/09/2018 CHIEF COMPLAINT: The patient is a 72-year-old female, who presents with chief complaint of cough. HISTORY OF PRESENT ILLNESS: Began on 04/08/2018. The patient began to experience subjective fevers and chills. The patient also has a nonproductive cough since the second. The patient also complains of congestion. The patient denies production of phlegm. The patient presented to [place] emergency room. The patient is admitted for cough to rule out acute asthma exacerbation. REVIEW OF SYSTEMS: CONSTITUTIONAL: The patient denies weight loss or weight gain. The patient complains of subjective fevers and chills as above. HEENT: The patient denies ear or throat pain. The patient denies headache. CARDIOVASCULAR: The patient denies palpitations or chest pain. CHEST: The patient denies wheeze or shortness of breath. ABDOMEN: The patient denies nausea, vomiting, diarrhea, or constipation. GENITOURINARY: The patient denies dysuria or increased frequency of urination. NEUROMUSCULAR: The patient denies seizures or generalized weakness. PAST MEDICAL HISTORY: Significant for 1. Hypertension. 2. Hypercholesterolemia. 3. Asthma. 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 CURRENT MEDICATIONS: 1. Aspirin 81 mg one tablet p.o. daily. 2. Albuterol metered-dose inhaler two puffs p.o. q.i.d. p.r.n. 3. Plavix 75 mg p.o. daily. 4. Diltiazem 180 mg p.o. daily. 5. Meclizine 25 mg p.o. 3 times daily. 6. Pravastatin 40 mg p.o. at bedtime. ALLERGIES: No known drug allergies. SOCIAL HISTORY: The patient is a and lives alone. The patient denies tobacco use, having quit at age 21. The patient denies alcohol use. PHYSICAL EXAMINATION: GENERAL: The patient is well-developed and well-nourished female, in no apparent distress. VITAL SIGNS: Temperature 99.0 degrees, respirations 20, pulse 116, and blood pressure 148/92. HEENT: Eyes, pupils equal and responsive to light and accommodation. Extraocular movements are intact. NECK: Supple without lymphadenopathy. CHEST: Diffuse wheezes in bilateral lung thomson, otherwise, without rales CARDIOVASCULAR: Regular rhythm and rate. S1 and S2 normal without murmurs, rubs, or gallops. ABDOMEN: Soft, nontender, and nondistended with positive bowel sounds. No evidence of hepatosplenomegaly. Currently, no rebound or guarding noted. EXTREMITIES: Negative for clubbing, cyanosis, or edema. RECTAL/GENITAL: Refused. NEUROLOGIC: Cranial nerves II through XII are grossly intact without focal deficits. Motor strength is 5/5 bilaterally. Deep tendon reflexes are 2+ plantar. LABORATORY AND DIAGNOSTIC DATA: WBC 22.7, hemoglobin 14.6, hematocrit 43.4 and platelets 204,000. Sodium 138, potassium 3.1, chloride 103, CO2 29, BUN 15, creatinine 0.8 and glucose 93. Chest x-ray was reported as no acute disease. ASSESSMENT: This is a 72-year-old female, 1. Fever. 2. Cough. 3. Acute asthma exacerbation. 4. Bronchitis. 5. Hypertension. 6. Hypercholesterolemia. TREATMENT: 1. Fever/cough/bronchitis/asthma exacerbation. A Pulmonary consultation will be obtained with Dr. Michelle Jerry. The patient is currently receiving intravenous Solu-Medrol. The patient is also receiving albuterol nebulized q.4 h. p.r.n. We will follow recommendations of Pulmonary. The patient has been started empirically on intravenous vancomycin and cefepime. 2. Hypertension. Continue diltiazem as above. 3. Hypercholesterolemia. Continue Pravachol as above. Kyle Rowan M.D. DR: ALVAREZ JOB#: [id number] CC:
[2018-04-10] MEDS: Hydrocortisone 100mg Inj IV SCH (18:30)
[2018-04-10 20:00] VITALS: BP 127/79
--- NOTE | 2018-04-10 23:59 | Consultation ---
History of Present Illness General Chief Complaint: Upper Respiratory Illness Present Illness Allergies: Coded Allergies: No Known Allergies (Unverified , 03/21/17) Medication History Scheduled Aspirin* (Aspir-Low*), 81 MG ORAL DAILY, (Reported) Clopidogrel Bisulfate* (Plavix*), 75 MG ORAL DAILY Diltiazem Hcl* (Cardizem Cd*), 180 MG ORAL DAILY, (Reported) Meclizine Hcl* (Meclizine*), 25 MG ORAL THREE TIMES A DAY Pravastatin Sod* (Pravachol*), 40 MG ORAL BEDTIME, (Reported) Patient History Healthcare decision maker Resuscitation status Full Code Advanced Directive on File No Physical Exam Last 24 Hour Vital Signs Date Time Temp Pulse Resp B/P (MAP) Pulse Ox O2 Delivery O2 Flow Rate FiO2 04/10/18 19:47 108 17 Room Air 21 04/10/18 16:00 80 04/10/18 16:00 97.8 83 18 124/78 100 97.8 04/10/18 12:00 97.5 82 18 123/73 100 97.5 04/10/18 12:00 85 04/10/18 09:48 95 129/75 04/10/18 08:10 111 16 Room Air 21 04/10/18 08:00 97.8 95 18 129/75 96 97.8 04/10/18 08:00 94 04/10/18 04:21 108 04/10/18 04:00 97.9 102 20 109/69 94 97.9 04/10/18 00:00 99.0 116 20 148/92 95 99.0 Intake and Output 04/09/18 04/10/18 19:00 07:00 Intake Total 830 ml Balance 830 ml IV Total 830 ml # Voids 3 Laboratory Tests Test 04/10/18 06:08 White Blood Count 21.6 K/UL (4.8-10.8) H Red Blood Count 4.80 M/UL (4.20-5.40) Hemoglobin 14.2 G/DL (12.0-16.0) Hematocrit 43.1 % (37.0-47.0) Mean Corpuscular Volume 90 FL (80-99) Mean Corpuscular Hemoglobin 29.7 PG (27.0-31.0) Mean Corpuscular Hemoglobin Concent 33.0 G/DL (32.0-36.0) Red Cell Distribution Width 12.5 % (11.6-14.8) Platelet Count 269 K/UL (150-450) Mean Platelet Volume 7.8 FL (6.5-10.1) Neutrophils (%) (Auto) % (45.0-75.0) Lymphocytes (%) (Auto) % (20.0-45.0) Monocytes (%) (Auto) % (1.0-10.0) Eosinophils (%) (Auto) % (0.0-3.0) Basophils (%) (Auto) % (0.0-2.0) Differential Total Cells Counted 100 Neutrophils % (Manual) 63 % (45-75) Lymphocytes % (Manual) 20 % (20-45) Monocytes % (Manual) 16 % (1-10) H Eosinophils % (Manual) 1 % (0-3) Basophils % (Manual) 0 % (0-2) Band Neutrophils 0 % (0-8) Platelet Estimate Adequate Platelet Morphology Normal Sodium Level 138 MMOL/L (136-145) Potassium Level 2.7 MMOL/L (3.5-5.1) *L Chloride Level 103 MMOL/L (98-107) Carbon Dioxide Level 28 MMOL/L (21-32) Anion Gap 7 mmol/L (5-15) Blood Urea Nitrogen 10 mg/dL (7-18) Creatinine 0.9 MG/DL (0.55-1.30) Estimat Glomerular Filtration Rate mL/min (>60) Glucose Level 104 MG/DL (74-106) Calcium Level 8.5 MG/DL (8.5-10.1) Phosphorus Level 3.3 MG/DL (2.5-4.9) Albumin 3.3 G/DL (3.4-5.0) L Height (Feet): 5 Height (Inches): 7.00 Weight (Pounds): 198 Medications Current Medications Medications (Trade) Dose Ordered Sig/Joseph Route PRN Reason Start Time Stop Time Status Last Admin Dose Admin Acetaminophen (Tylenol) 650 mg Q4H PRN ORAL FEVER 04/09/18 22:15 05/09/18 22:14 04/10/18 06:19 Albuterol/ Ipratropium (Albuterol/ Ipratropium) 3 ml EVERY 4 HOURS PRN HHN Shortness of Breath 04/09/18 22:15 04/14/18 22:14 Aspirin (Ecotrin) 81 mg DAILY ORAL 04/10/18 09:00 05/10/18 08:59 04/10/18 09:48 Cefepime HCl 2 gm/ Dextrose 110 ml @ 220 mls/hr EVERY 12 HOURS IV 04/10/18 09:00 04/17/18 08:59 04/10/18 21:27 Clopidogrel Bisulfate (Plavix) 75 mg DAILY ORAL 04/10/18 09:00 05/10/18 08:59 Dextrose (Dextrose 50%) STAT PRN IV Hypoglycemia 04/09/18 22:15 05/09/18 22:14 Diltiazem HCl (Cardizem CD) 180 mg DAILY ORAL 04/10/18 09:00 05/10/18 08:59 04/10/18 09:48 Heparin Sodium (Porcine) (Heparin 5000 units/ml) 5,000 units EVERY 12 HOURS SUBQ 04/10/18 09:00 05/10/18 08:59 04/10/18 21:29 Hydrocortisone (Solu-CORTEF) 60 mg EVERY 6 HOURS IV 04/10/18 18:00 05/10/18 17:59 04/10/18 18:30 Morphine Sulfate (Morphine Sulfate) 2 mg EVERY 4 HOURS PRN IVP Severe Pain (Pain Scale 7-10) 04/09/18 22:15 04/16/18 22:14 Ondansetron HCl (Zofran) 4 mg Q6H PRN IVP Nausea & Vomiting 04/09/18 22:15 05/09/18 22:14 Polyethylene Glycol (Miralax) 17 gm DAILYPRN PRN ORAL Constipation 04/09/18 22:15 05/09/18 22:14 Pravastatin Sodium (Pravachol) 40 mg BEDTIME ORAL 04/10/18 21:00 05/10/18 20:59 04/10/18 21:26 Vancomycin HCl (Vanco rx to dose) 1 ea DAILY PRN MISC per rx protocol 04/10/18 07:30 05/10/18 07:29 Vancomycin HCl/ Dextrose 250 ml @ 167 mls/hr Q24H IVPB 04/09/18 23:00 04/14/18 22:59 04/10/18 22:54 Jacinto Bustos MD Apr 10, 2018 23:59
[2018-04-11] VITALS: BP 139/82
[2018-04-11] MEDS: Hydrocortisone 100mg Inj IV SCH ×4 (00:13→18:08)
[2018-04-11 04:00] VITALS: BP 144/82
[2018-04-11 07:56] LABS: BASOPHILS % (AUTO) 0.4 % (0.0-2.0); EOSINOPHILS % (AUTO) 0.1 % (0.0-3.0); HEMATOCRIT 41.9 % (37.0-47.0); LYMPHOCYTES % (AUTO) 13.2 % (20.0-45.0); MEAN CORPUSCULAR VOLUME 90 FL (80-99); MONOCYTES % (AUTO) 4.7 % (1.0-10.0); NEUTROPHILS % (AUTO) 81.5 % (45.0-75.0); PLATELET COUNT 256 K/UL (150-450); RED BLOOD COUNT 4.65 M/UL (4.20-5.40); RED CELL DISTRIBUTION WIDTH 12.5 % (11.6-14.8); WHITE BLOOD COUNT 14.9 K/UL (4.8-10.8)
[2018-04-11 08:00] VITALS: BP 139/94
[2018-04-11 08:16] LABS: ANION GAP 7 mmol/L (5-15); BLOOD UREA NITROGEN 10 mg/dL (7-18); CALCIUM 8.4 MG/DL (8.5-10.1); CARBON DIOXIDE 27 MMOL/L (21-32); CHLORIDE 108 MMOL/L (98-107); CREATININE 0.8 MG/DL (0.55-1.30); POTASSIUM 3.7 MMOL/L (3.5-5.1); SODIUM 142 MMOL/L (136-145)
--- NOTE | 2018-04-11 09:12 | Physician Query ---
--------- THIS DOCUMENT IS A PERMANENT PART OF THE MEDICAL RECORD --------- PLEASE COMPLETE THE DOCUMENT BEFORE SIGNING Dear Dr. Jerry Date: 2017 [employer] Name: Radha rosario [employer] Phone No.:[phone] Exercise your independent professional judgment when responding to query. Question asked do not imply a particular answer is desired/expected Clinical Documentation States: Patient admitted with Pneumonia. Clinical Findings Show: At the time of admission: WBC: 22.7, HR: 120, RR: 24 Antibiotics: Cefepime, Vancomycin Can you please clarify the diagnosis for above findings: [ ] Sepsis [x ] Sepsis with organ dysfunction [ ] SIRS [ ] SIRS with organ dysfunction [ ] Septic Shock [ ] Other: [ ] Clinically Undeterminable Was it present on admission? [] Yes [] No [] Clinically undeterminable Criteria for Sepsis* Sepsis: Presence of 1 or more criteria in this row. Positive cultures (but not required) or WBCs present in otherwise sterile fluid: blood, urine, sputum, CSF , etc.? Prescribed anti-infective therapy: antibiotic, antifungal, and other? Documentation of pneumonia: positive x-ray or clinical presentation? Perforated viscus: perforation of a hollow organ, e.g. bowel? SIRS: Presence of > 2 criteria in this row Temperature: > 100.4 F. or < 96.8 F. Heart rate: > 90 bpm Respiratory rate: > 20/min. WBC count: > 12,000/mm2 < 4,000/mm2 > 10% bands MTDD
[2018-04-11] MEDS: Aspirin EC 81mg tab ORAL SCH (09:25)
[2018-04-11] MEDS: dilTIAZem HCl CD 180mg cap ORAL SCH (09:25)
[2018-04-11] MEDS: Cefepime HCl 2 GM in D5W 110 ML IV SCH (09:25)
[2018-04-11] MEDS: Heparin 5000 units/ml inj SUBQ SCH ×2 (09:30→20:32)
--- NOTE | 2018-04-11 11:41 | Infectious Diseases Prog Note ---
Assessment/Plan Assessment/Plan Abx: IV Vanco /- Cefepime 04/10- Azithromycin x1 / Ceftriaxone x1 04/09 Assessment: Cough, likely bronchitis/asthma exacerbation- no obvious PNA on CXR -CXR: No acute disease Leukocytosis, improving- recently tapered off steroids -u/a no pyuria -bcx NTD -sp cx unable to be collected as patient with dry cough Asthma pA-flutter HLD HTN Plan: -Switch empiric IV Vanco #2 and Cefepime abx d#2 to PO Levaquin; will treat for a total of 5 days -ok to discharge on PO Levaquin -04/09 SP Azithromycin x1, Ceftriaxone x1 -f/u cx, Cdiff -Monitor CBC/BMP, temperatures -aspiration precautions Thank you for this consultation. Will continue to follow along with you. Subjective Allergies: Coded Allergies: No Known Allergies (Unverified , 03/21/17) Subjective afebrile at RA leukocytosis improving Objective Vital Signs Last 24 Hour Vital Signs Date Time Temp Pulse Resp B/P (MAP) Pulse Ox O2 Delivery O2 Flow Rate FiO2 04/11/18 09:25 89 139/94 04/11/18 08:00 97.2 89 19 139/94 97 97.2 04/11/18 08:00 91 04/11/18 07:20 74 18 Room Air 04/11/18 04:12 76 04/11/18 04:00 97.4 79 19 144/82 97 97.4 04/11/18 00:00 97.8 75 19 139/82 96 97.8 04/10/18 23:50 86 04/10/18 20:00 99.0 83 19 127/79 96 99.0 04/10/18 19:47 108 17 Room Air 04/10/18 19:40 84 04/10/18 16:00 80 04/10/18 16:00 97.8 83 18 124/78 100 97.8 04/10/18 12:00 97.5 82 18 123/73 100 97.5 04/10/18 12:00 85 Height (Feet): 5 Height (Inches): 7.00 Weight (Pounds): 198 Objective General Appearance: WD/WN, no apparent distress Lines, tubes and drains: peripheral HEENT: normocephalic, atraumatic Neck: non-tender, normal alignment Respiratory/Chest: chest wall non-tender, lungs clear Cardiovascular/Chest: normal peripheral pulses Abdomen: normal bowel sounds Extremities: normal range of motion Microbiology Date/Time Source Procedure Growth Status 04/09/18 21:05 Blood Blood Culture - Preliminary NO GROWTH AFTER 24 HOURS Resulted 04/09/18 20:55 Blood Blood Culture - Preliminary NO GROWTH AFTER 24 HOURS Resulted Laboratory Tests Test 04/11/18 07:00 White Blood Count 14.9 K/UL (4.8-10.8) H Red Blood Count 4.65 M/UL (4.20-5.40) Hemoglobin 14.0 G/DL (12.0-16.0) Hematocrit 41.9 % (37.0-47.0) Mean Corpuscular Volume 90 FL (80-99) Mean Corpuscular Hemoglobin 30.2 PG (27.0-31.0) Mean Corpuscular Hemoglobin Concent 33.5 G/DL (32.0-36.0) Red Cell Distribution Width 12.5 % (11.6-14.8) Platelet Count 256 K/UL (150-450) Mean Platelet Volume 8.0 FL (6.5-10.1) Neutrophils (%) (Auto) 81.5 % (45.0-75.0) H Lymphocytes (%) (Auto) 13.2 % (20.0-45.0) L Monocytes (%) (Auto) 4.7 % (1.0-10.0) Eosinophils (%) (Auto) 0.1 % (0.0-3.0) Basophils (%) (Auto) 0.4 % (0.0-2.0) Sodium Level 142 MMOL/L (136-145) Potassium Level 3.7 MMOL/L (3.5-5.1) Chloride Level 108 MMOL/L (98-107) H Carbon Dioxide Level 27 MMOL/L (21-32) Anion Gap 7 mmol/L (5-15) Blood Urea Nitrogen 10 mg/dL (7-18) Creatinine 0.8 MG/DL (0.55-1.30) Estimat Glomerular Filtration Rate mL/min (>60) Glucose Level 137 MG/DL (74-106) H Calcium Level 8.4 MG/DL (8.5-10.1) L Current Medications Medications (Trade) Dose Ordered Sig/Joseph Route PRN Reason Start Time Stop Time Status Last Admin Dose Admin Acetaminophen (Tylenol) 650 mg Q4H PRN ORAL FEVER 04/09/18 22:15 05/09/18 22:14 04/10/18 06:19 Albuterol/ Ipratropium (Albuterol/ Ipratropium) 3 ml EVERY 4 HOURS PRN HHN Shortness of Breath 04/09/18 22:15 04/14/18 22:14 Aspirin (Ecotrin) 81 mg DAILY ORAL 04/10/18 09:00 05/10/18 08:59 04/11/18 09:25 Cefepime HCl 2 gm/ Dextrose 110 ml @ 220 mls/hr EVERY 12 HOURS IV 04/10/18 09:00 04/17/18 08:59 04/11/18 09:25 Clopidogrel Bisulfate (Plavix) 75 mg DAILY ORAL 04/10/18 09:00 05/10/18 08:59 04/11/18 09:25 Dextrose (Dextrose 50%) 25 ml STAT PRN IV Hypoglycemia 04/11/18 10:15 05/11/18 10:14 Dextrose (Dextrose 50%) 50 ml STAT PRN IV Hypoglycemia 04/11/18 10:15 05/09/18 22:14 Diltiazem HCl (Cardizem CD) 180 mg DAILY ORAL 04/10/18 09:00 05/10/18 08:59 04/11/18 09:25 Heparin Sodium (Porcine) (Heparin 5000 units/ml) 5,000 units EVERY 12 HOURS SUBQ 04/10/18 09:00 05/10/18 08:59 04/11/18 09:30 Hydrocortisone (Solu-CORTEF) 60 mg EVERY 6 HOURS IV 04/10/18 18:00 05/10/18 17:59 04/11/18 05:56 Morphine Sulfate (Morphine Sulfate) 2 mg EVERY 4 HOURS PRN IVP Severe Pain (Pain Scale 7-10) 04/09/18 22:15 04/16/18 22:14 Ondansetron HCl (Zofran) 4 mg Q6H PRN IVP Nausea & Vomiting 04/09/18 22:15 05/09/18 22:14 Polyethylene Glycol (Miralax) 17 gm DAILYPRN PRN ORAL Constipation 04/09/18 22:15 05/09/18 22:14 Pravastatin Sodium (Pravachol) 40 mg BEDTIME ORAL 04/10/18 21:00 05/10/18 20:59 04/10/18 21:26 Vancomycin HCl (Vanco rx to dose) 1 ea DAILY PRN MISC per rx protocol 04/10/18 07:30 05/10/18 07:29 Vancomycin HCl/ Dextrose 250 ml @ 167 mls/hr Q24H IVPB 04/09/18 23:00 04/14/18 22:59 04/10/18 22:54 Cally Rothman M.D. Apr 11, 2018 11:41
[2018-04-11 12:00] VITALS: BP 138/93
--- NOTE | 2018-04-11 12:56 | Pulmonology Progress Note ---
Assessment/Plan Problems: (1) Acute febrile illness (2) Pneumonia (3) Cerebral vascular disease (4) HTN (hypertension) Assessment/Plan improving less short of breath chest PT monitor BP check electrolytes check sputum cultures Subjective ROS Limited/Unobtainable: No Constitutional: Reports: no symptoms HEENT: Repors: no symptoms Respiratory: Reports: no symptoms Allergies: Coded Allergies: No Known Allergies (Unverified , 03/21/17) Objective Last 24 Hour Vital Signs Date Time Temp Pulse Resp B/P (MAP) Pulse Ox O2 Delivery O2 Flow Rate FiO2 04/11/18 09:25 89 139/94 04/11/18 08:00 97.2 89 19 139/94 97 97.2 04/11/18 08:00 91 04/11/18 07:20 74 18 Room Air 21 04/11/18 04:12 76 04/11/18 04:00 97.4 79 19 144/82 97 97.4 04/11/18 00:00 97.8 75 19 139/82 96 97.8 04/10/18 23:50 86 04/10/18 20:00 99.0 83 19 127/79 96 99.0 04/10/18 19:47 108 17 Room Air 21 04/10/18 19:40 84 04/10/18 16:00 80 04/10/18 16:00 97.8 83 18 124/78 100 97.8 Intake and Output 04/10/18 04/11/18 19:00 07:00 Intake Total 360 ml 674 ml Balance 360 ml 674 ml Intake Oral 360 ml 120 ml IV Total 554 ml # Voids 3 2 # Bowel Movements 1 1 General Appearance: WD/WN HEENT: normocephalic Respiratory/Chest: chest wall non-tender, lungs clear Breasts: no masses Cardiovascular: normal peripheral pulses Abdomen: normal bowel sounds, soft, non tender Genitourinary: normal external genitalia Extremities: no clubbing Skin: no rash Microbiology Date/Time Source Procedure Growth Status 04/09/18 21:05 Blood Blood Culture - Preliminary NO GROWTH AFTER 24 HOURS Resulted 04/09/18 20:55 Blood Blood Culture - Preliminary NO GROWTH AFTER 24 HOURS Resulted Laboratory Tests 04/11/18 07:00: White Blood Count 14.9H, Red Blood Count 4.65, Hemoglobin 14.0, Hematocrit 41.9 , Mean Corpuscular Volume 90, Mean Corpuscular Hemoglobin 30.2, Mean Corpuscular Hemoglobin Concent 33.5, Red Cell Distribution Width 12.5, Platelet Count 256, Mean Platelet Volume 8.0, Neutrophils (%) (Auto) 81.5H, Lymphocytes ( %) (Auto) 13.2L, Monocytes (%) (Auto) 4.7, Eosinophils (%) (Auto) 0.1, Basophils (%) (Auto) 0.4, Sodium Level 142, Potassium Level 3.7, Chloride Level 108H, Carbon Dioxide Level 27, Anion Gap 7, Blood Urea Nitrogen 10, Creatinine 0.8, Estimat Glomerular Filtration Rate , Glucose Level 137H, Calcium Level 8.4L Current Medications Medications (Trade) Dose Ordered Sig/Joseph Route PRN Reason Start Time Stop Time Status Last Admin Dose Admin Acetaminophen (Tylenol) 650 mg Q4H PRN ORAL FEVER 04/09/18 22:15 05/09/18 22:14 04/10/18 06:19 Albuterol/ Ipratropium (Albuterol/ Ipratropium) 3 ml EVERY 4 HOURS PRN HHN Shortness of Breath 04/09/18 22:15 04/14/18 22:14 Aspirin (Ecotrin) 81 mg DAILY ORAL 04/10/18 09:00 05/10/18 08:59 04/11/18 09:25 Clopidogrel Bisulfate (Plavix) 75 mg DAILY ORAL 04/10/18 09:00 05/10/18 08:59 04/11/18 09:25 Dextrose (Dextrose 50%) 25 ml STAT PRN IV Hypoglycemia 04/11/18 10:15 05/11/18 10:14 Dextrose (Dextrose 50%) 50 ml STAT PRN IV Hypoglycemia 04/11/18 10:15 05/09/18 22:14 Diltiazem HCl (Cardizem CD) 180 mg DAILY ORAL 04/10/18 09:00 05/10/18 08:59 04/11/18 09:25 Heparin Sodium (Porcine) (Heparin 5000 units/ml) 5,000 units EVERY 12 HOURS SUBQ 04/10/18 09:00 05/10/18 08:59 04/11/18 09:30 Hydrocortisone (Solu-CORTEF) 60 mg EVERY 6 HOURS IV 04/10/18 18:00 05/10/18 17:59 04/11/18 12:47 Levofloxacin (Levaquin) 500 mg QHS ORAL 04/11/18 21:00 04/18/18 20:59 Morphine Sulfate (Morphine Sulfate) 2 mg EVERY 4 HOURS PRN IVP Severe Pain (Pain Scale 7-10) 04/09/18 22:15 04/16/18 22:14 Ondansetron HCl (Zofran) 4 mg Q6H PRN IVP Nausea & Vomiting 04/09/18 22:15 05/09/18 22:14 Polyethylene Glycol (Miralax) 17 gm DAILYPRN PRN ORAL Constipation 04/09/18 22:15 05/09/18 22:14 Pravastatin Sodium (Pravachol) 40 mg BEDTIME ORAL 04/10/18 21:00 05/10/18 20:59 04/10/18 21:26 Michelle Jerry MD Apr 11, 2018 12:56
--- NOTE | 2018-04-11 15:52 | General Progress Note ---
Assessment/Plan Status: stable Subjective 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: Reports: anxiety, emotional problems Allergies: Coded Allergies: No Known Allergies (Unverified , 03/21/17) Objective Last 24 Hour Vital Signs Date Time Temp Pulse Resp B/P (MAP) Pulse Ox O2 Delivery O2 Flow Rate FiO2 04/11/18 12:00 97.2 95 18 138/93 97 97.2 04/11/18 09:25 89 139/94 04/11/18 08:00 97.2 89 19 139/94 97 97.2 04/11/18 08:00 91 04/11/18 07:20 74 18 Room Air 21 04/11/18 04:12 76 04/11/18 04:00 97.4 79 19 144/82 97 97.4 04/11/18 00:00 97.8 75 19 139/82 96 97.8 04/10/18 23:50 86 04/10/18 20:00 99.0 83 19 127/79 96 99.0 04/10/18 19:47 108 17 Room Air 21 04/10/18 19:40 84 04/10/18 16:00 80 04/10/18 16:00 97.8 83 18 124/78 100 97.8 Intake and Output 04/10/18 04/11/18 19:00 07:00 Intake Total 360 ml 674 ml Balance 360 ml 674 ml Intake Oral 360 ml 120 ml IV Total 554 ml # Voids 3 2 # Bowel Movements 1 1 Laboratory Tests 04/11/18 07:00: White Blood Count 14.9H, Red Blood Count 4.65, Hemoglobin 14.0, Hematocrit 41.9 , Mean Corpuscular Volume 90, Mean Corpuscular Hemoglobin 30.2, Mean Corpuscular Hemoglobin Concent 33.5, Red Cell Distribution Width 12.5, Platelet Count 256, Mean Platelet Volume 8.0, Neutrophils (%) (Auto) 81.5H, Lymphocytes ( %) (Auto) 13.2L, Monocytes (%) (Auto) 4.7, Eosinophils (%) (Auto) 0.1, Basophils (%) (Auto) 0.4, Sodium Level 142, Potassium Level 3.7, Chloride Level 108H, Carbon Dioxide Level 27, Anion Gap 7, Blood Urea Nitrogen 10, Creatinine 0.8, Estimat Glomerular Filtration Rate , Glucose Level 137H, Calcium Level 8.4L Height (Feet): 5 Height (Inches): 7.00 Weight (Pounds): 198 General Appearance: no apparent distress, alert Neurologic: oriented x 3, responsive, depressed affect Jacinto Bustos MD Apr 11, 2018 15:52
[2018-04-11 16:00] VITALS: BP 154/73
[2018-04-11] MEDS ORDERED: Promethazine/Codeine 5ml UD ORAL PRN (16:00)
--- NOTE | 2018-04-11 16:05 | Internal Med Progress Note ---
Subjective Date of Service: Apr 11, 2018 Physician Name Kyle Rowan Attending Physician Gonzalez Leija MD Current Medications Medications (Trade) Dose Ordered Sig/Joseph Route PRN Reason Start Time Stop Time Status Last Admin Dose Admin Acetaminophen (Tylenol) 650 mg Q4H PRN ORAL FEVER 04/09/18 22:15 05/09/18 22:14 04/10/18 06:19 Albuterol/ Ipratropium (Albuterol/ Ipratropium) 3 ml EVERY 4 HOURS PRN HHN Shortness of Breath 04/09/18 22:15 04/14/18 22:14 Aspirin (Ecotrin) 81 mg DAILY ORAL 04/10/18 09:00 05/10/18 08:59 04/11/18 09:25 Clopidogrel Bisulfate (Plavix) 75 mg DAILY ORAL 04/10/18 09:00 05/10/18 08:59 04/11/18 09:25 Dextrose (Dextrose 50%) 25 ml STAT PRN IV Hypoglycemia 04/11/18 10:15 05/11/18 10:14 Dextrose (Dextrose 50%) 50 ml STAT PRN IV Hypoglycemia 04/11/18 10:15 05/09/18 22:14 Diltiazem HCl (Cardizem CD) 180 mg DAILY ORAL 04/10/18 09:00 05/10/18 08:59 04/11/18 09:25 Heparin Sodium (Porcine) (Heparin 5000 units/ml) 5,000 units EVERY 12 HOURS SUBQ 04/10/18 09:00 05/10/18 08:59 04/11/18 09:30 Hydrocortisone (Solu-CORTEF) 60 mg EVERY 6 HOURS IV 04/10/18 18:00 05/10/18 17:59 04/11/18 12:47 Levofloxacin (Levaquin) 500 mg QHS ORAL 04/11/18 21:00 04/18/18 20:59 Morphine Sulfate (Morphine Sulfate) 2 mg EVERY 4 HOURS PRN IVP Severe Pain (Pain Scale 7-10) 04/09/18 22:15 04/16/18 22:14 Ondansetron HCl (Zofran) 4 mg Q6H PRN IVP Nausea & Vomiting 04/09/18 22:15 05/09/18 22:14 Polyethylene Glycol (Miralax) 17 gm DAILYPRN PRN ORAL Constipation 04/09/18 22:15 05/09/18 22:14 Pravastatin Sodium (Pravachol) 40 mg BEDTIME ORAL 04/10/18 21:00 05/10/18 20:59 04/10/18 21:26 Allergies: Coded Allergies: No Known Allergies (Unverified , 03/21/17) ROS Limited/Unobtainable: No Constitutional: Reports: no symptoms HEENT: Reports: no symptoms Cardiovascular: Reports: no symptoms Respiratory: Reports: shortness of breath, wheezing Gastrointestinal/Abdominal: Reports: no symptoms Genitourinary: Reports: no symptoms 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: Reports: no symptoms Subjective 72 YO F admitted with wheezing and cough. Now asthma exacerbation and bronchitis. Cover for Int Med - Dr Leija. Objective Last Vital Signs Date Time Temp Pulse Resp B/P (MAP) Pulse Ox O2 Delivery O2 Flow Rate FiO2 04/11/18 12:00 97.2 95 18 138/93 97 97.2 04/11/18 07:20 Room Air 21 General Appearance: WD/WN, no apparent distress, alert EENT: PERRL/EOMI, normal ENT inspection Neck: non-tender, normal alignment, supple Cardiovascular: normal peripheral pulses, normal rate, regular rhythm, no gallop/murmur, no JVD Respiratory/Chest: chest wall non-tender, respiratory distress, crackles/rales , rhonchi - bilaterally, expiratory wheezing Abdomen: normal bowel sounds, non tender, soft, no organomegaly, no mass Extremities: normal range of motion, non-tender Neurologic: sports photographer II-XII grossly normal, no motor/sensory deficits Skin: normal pigmentation, warm/dry Laboratory Tests Test 04/11/18 07:00 White Blood Count 14.9 K/UL (4.8-10.8) H Red Blood Count 4.65 M/UL (4.20-5.40) Hemoglobin 14.0 G/DL (12.0-16.0) Hematocrit 41.9 % (37.0-47.0) Mean Corpuscular Volume 90 FL (80-99) Mean Corpuscular Hemoglobin 30.2 PG (27.0-31.0) Mean Corpuscular Hemoglobin Concent 33.5 G/DL (32.0-36.0) Red Cell Distribution Width 12.5 % (11.6-14.8) Platelet Count 256 K/UL (150-450) Mean Platelet Volume 8.0 FL (6.5-10.1) Neutrophils (%) (Auto) 81.5 % (45.0-75.0) H Lymphocytes (%) (Auto) 13.2 % (20.0-45.0) L Monocytes (%) (Auto) 4.7 % (1.0-10.0) Eosinophils (%) (Auto) 0.1 % (0.0-3.0) Basophils (%) (Auto) 0.4 % (0.0-2.0) Sodium Level 142 MMOL/L (136-145) Potassium Level 3.7 MMOL/L (3.5-5.1) Chloride Level 108 MMOL/L (98-107) H Carbon Dioxide Level 27 MMOL/L (21-32) Anion Gap 7 mmol/L (5-15) Blood Urea Nitrogen 10 mg/dL (7-18) Creatinine 0.8 MG/DL (0.55-1.30) Estimat Glomerular Filtration Rate mL/min (>60) Glucose Level 137 MG/DL (74-106) H Calcium Level 8.4 MG/DL (8.5-10.1) L Microbiology Date/Time Source Procedure Growth Status 04/09/18 21:05 Blood Blood Culture - Preliminary NO GROWTH AFTER 24 HOURS Resulted 04/09/18 20:55 Blood Blood Culture - Preliminary NO GROWTH AFTER 24 HOURS Resulted Intake and Output 04/10/18 04/11/18 19:00 07:00 Intake Total 360 ml 674 ml Balance 360 ml 674 ml Intake Oral 360 ml 120 ml IV Total 554 ml # Voids 3 2 # Bowel Movements 1 1 Assessment/Plan Problem List: (1) Cough (2) Bronchitis Assessment & Plan: See ID note. D/C vanco and cefepime. Start PO levaquin (3) Asthma exacerbation Assessment & Plan: See pulmonary note. Cont duoneb and IV solumedrol (4) Fever (5) HTN (hypertension) Assessment & Plan: Continue cardizem (6) Hypercholesteremia Assessment & Plan: continue pravachol Status: progressing Kyle Rowan MD Apr 11, 2018 16:05
[2018-04-11] MEDS ORDERED: Albuterol/Ipratropium 3ml neb HHN SCH (19:00)
[2018-04-11 20:00] VITALS: BP_SYST 152; BP_SYST 158; BP_DIAS 82; BP_DIAS 87
[2018-04-11] MEDS: Levofloxacin 500mg tab ORAL SCH (20:31)
[2018-04-11] MEDS ORDERED: Morphine Sulfate 4mg/ml Inj (IV USE ONLY) IVP PRN (21:00)
[2018-04-11] MEDS ORDERED: Levofloxacin 500mg tab ORAL SCH (21:00)
[2018-04-11] MEDS ORDERED: Miralax 17gm pkt ORAL PRN (21:00)
[2018-04-12] VITALS: BP 150/88
[2018-04-12] MEDS: Hydrocortisone 100mg Inj IV SCH ×3 (00:51→12:49)
[2018-04-12] MEDS: Albuterol/Ipratropium 3ml neb HHN SCH ×5 (01:21→19:00)
[2018-04-12 04:00] VITALS: BP 148/96
[2018-04-12] MEDS: Promethazine/Codeine 5ml UD ORAL PRN ×5 (05:33→23:56)
[2018-04-12 07:22] LABS: HEMATOCRIT 39.6 % (37.0-47.0); HEMOGLOBIN 13.4 G/DL (12.0-16.0); MEAN CORPUSCULAR VOLUME 90 FL (80-99); PLATELET COUNT 280 K/UL (150-450); RED BLOOD COUNT 4.38 M/UL (4.20-5.40); RED CELL DISTRIBUTION WIDTH 12.2 % (11.6-14.8); WHITE BLOOD COUNT 20.4 K/UL (4.8-10.8)
[2018-04-12 07:29] LABS: ALANINE AMINOTRANSFERASE 28 U/L (12-78); ALBUMIN/GLOBULIN RATIO 0.8 (1.0-2.7); ALKALINE PHOSPHATASE 57 U/L (46-116); ANION GAP 9 mmol/L (5-15); ASPARTATE AMINO TRANSFERASE 14 U/L (15-37); BILIRUBIN,TOTAL 0.6 MG/DL (0.2-1.0); BLOOD UREA NITROGEN 14 mg/dL (7-18); CALCIUM 8.7 MG/DL (8.5-10.1); CARBON DIOXIDE 27 MMOL/L (21-32); CHLORIDE 108 MMOL/L (98-107); CREATININE 0.9 MG/DL (0.55-1.30); PHOSPHORUS 2.7 MG/DL (2.5-4.9); POTASSIUM 3.4 MMOL/L (3.5-5.1); SODIUM 144 MMOL/L (136-145)
[2018-04-12 08:00] VITALS: BP 142/77
[2018-04-12] MEDS: dilTIAZem HCl CD 180mg cap ORAL SCH (09:14)
[2018-04-12] MEDS: Aspirin EC 81mg tab ORAL SCH (09:14)
[2018-04-12] MEDS: Heparin 5000 units/ml inj SUBQ SCH ×2 (09:15→20:31)
[2018-04-12 12:00] VITALS: BP 134/88
--- NOTE | 2018-04-12 14:25 | Cardiology Report ---
APPROVED REPORT EKG Measurement Heart [id number] SD 150P50 [id number] Sinus tachycardia Possible Left atrial enlargement Left ventricular hypertrophy Nonspecific ST and T wave abnormality Abnormal ECG
--- NOTE | 2018-04-12 15:50 | Pulmonology Progress Note ---
Assessment/Plan Problems: (1) Acute febrile illness (2) Pneumonia (3) Cerebral vascular disease (4) HTN (hypertension) Assessment/Plan wbc lower change steroids to po improving less short of breath chest PT monitor BP check electrolytes check sputum cultures Subjective ROS Limited/Unobtainable: No Constitutional: Reports: no symptoms HEENT: Repors: no symptoms Respiratory: Reports: no symptoms Allergies: Coded Allergies: No Known Allergies (Unverified , 03/21/17) Objective Last 24 Hour Vital Signs Date Time Temp Pulse Resp B/P (MAP) Pulse Ox O2 Delivery O2 Flow Rate FiO2 04/12/18 15:30 91 18 96 Room Air 04/12/18 15:10 91 18 94 Room Air 04/12/18 12:00 98.0 93 20 134/88 (103) 96 98.0 04/12/18 09:14 89 142/77 04/12/18 08:14 89 16 98 Room Air 04/12/18 08:04 89 16 98 Room Air 04/12/18 08:00 96.6 91 20 142/77 97 Room Air 96.6 04/12/18 04:00 96.8 92 20 148/96 97 Room Air 96.8 04/12/18 01:31 68 18 98 Room Air 21 04/12/18 01:21 71 18 97 Room Air 04/12/18 00:00 98.2 81 20 150/88 100 Room Air 98.2 04/11/18 20:00 98.4 99 19 152/87 98 Room Air 98.4 04/11/18 20:00 97.7 94 20 158/82 97 Room Air 97.7 04/11/18 19:56 91 20 99 Room Air 21 04/11/18 19:44 95 20 97 Room Air 04/11/18 19:44 95 20 Room Air 04/11/18 16:00 98.2 87 18 154/73 97 98.2 Intake and Output 04/11/18 04/12/18 19:00 07:00 Intake Total 840 ml Balance 840 ml Intake Oral 840 ml # Voids 4 2 # Bowel Movements 1 1 General Appearance: WD/WN HEENT: normocephalic, anicteric Respiratory/Chest: chest wall non-tender, lungs clear, no respiratory distress Breasts: no masses Cardiovascular: normal peripheral pulses Abdomen: normal bowel sounds, soft, non tender Extremities: no cyanosis Skin: no lesions Microbiology Date/Time Source Procedure Growth Status 04/09/18 21:05 Blood Blood Culture - Preliminary NO GROWTH AFTER 48 HOURS Resulted 04/09/18 20:55 Blood Blood Culture - Preliminary NO GROWTH AFTER 48 HOURS Resulted Laboratory Tests 04/12/18 06:10: White Blood Count 20.4H, Red Blood Count 4.38, Hemoglobin 13.4, Hematocrit 39.6 , Mean Corpuscular Volume 90, Mean Corpuscular Hemoglobin 30.6, Mean Corpuscular Hemoglobin Concent 33.9, Red Cell Distribution Width 12.2, Platelet Count 280, Mean Platelet Volume 8.0, Neutrophils (%) (Auto) , Lymphocytes (%) ( Auto) , Monocytes (%) (Auto) , Eosinophils (%) (Auto) , Basophils (%) (Auto) , Differential Total Cells Counted , Neutrophils % (Manual) 86H, Lymphocytes % ( Manual) 11L, Monocytes % (Manual) 3, Eosinophils % (Manual) 0, Basophils % ( Manual) 0, Band Neutrophils 0, Platelet Estimate Adequate, Platelet Morphology Normal, Anisocytosis 1+, Sodium Level 144, Potassium Level 3.4L, Chloride Level 108H, Carbon Dioxide Level 27, Anion Gap 9, Blood Urea Nitrogen 14, Creatinine 0.9, Estimat Glomerular Filtration Rate , Glucose Level 140H, Calcium Level 8.7 , Phosphorus Level 2.7, Magnesium Level 2.2, Total Bilirubin 0.6, Aspartate Amino Transf (AST/SGOT) 14L, Alanine Aminotransferase (ALT/SGPT) 28, Alkaline Phosphatase 57, Total Protein 6.7, Albumin 3.0L, Globulin 3.7, Albumin/Globulin Ratio 0.8L Current Medications Medications (Trade) Dose Ordered Sig/Joseph Route PRN Reason Start Time Stop Time Status Last Admin Dose Admin Acetaminophen (Tylenol) 650 mg Q4H PRN ORAL T>100.5 04/11/18 21:00 05/09/18 20:59 Albuterol/ Ipratropium (Albuterol/ Ipratropium) 3 ml Q6HRT HHN 04/12/18 01:00 04/16/18 18:59 04/12/18 15:10 Aspirin (Ecotrin) 81 mg DAILY ORAL 04/12/18 09:00 05/10/18 08:59 04/12/18 09:14 Clopidogrel Bisulfate (Plavix) 75 mg DAILY ORAL 04/12/18 09:00 05/10/18 08:59 Dextrose (Dextrose 50%) 25 ml STAT PRN IV Hypoglycemia 04/11/18 20:30 05/11/18 20:29 Dextrose (Dextrose 50%) 50 ml STAT PRN IV Hypoglycemia 04/11/18 20:30 05/11/18 20:29 Diltiazem HCl (Cardizem CD) 180 mg DAILY ORAL 04/12/18 09:00 05/12/18 08:59 04/12/18 09:14 Heparin Sodium (Porcine) (Heparin 5000 units/ml) 5,000 units EVERY 12 HOURS SUBQ 04/11/18 21:00 05/10/18 08:59 04/12/18 09:15 Hydrocortisone (Solu-CORTEF) 60 mg EVERY 6 HOURS IV 04/12/18 00:00 05/10/18 17:59 04/12/18 12:49 Levofloxacin (Levaquin) 500 mg QHS ORAL 04/11/18 21:00 04/18/18 20:59 04/11/18 20:31 Morphine Sulfate (Morphine Sulfate) 2 mg Q4H PRN IVP Severe Pain (Pain Scale 7-10) 04/11/18 21:00 04/18/18 20:59 Ondansetron HCl (Zofran) 4 mg Q6H PRN IVP Nausea & Vomiting 04/11/18 21:00 05/09/18 20:59 Polyethylene Glycol (Miralax) 17 gm DAILYPRN PRN ORAL Constipation 04/11/18 21:00 05/09/18 20:59 Pravastatin Sodium (Pravachol) 40 mg BEDTIME ORAL 04/11/18 21:00 05/10/18 20:59 04/11/18 20:31 Promethazine HCl/ Codeine (Phenergan with Codeine) 5 ml Q4H PRN ORAL For Cough 04/11/18 21:00 05/11/18 20:59 04/12/18 14:37 Michelle Jerry MD Apr 12, 2018 15:50
[2018-04-12 16:00] VITALS: BP 131/77
--- NOTE | 2018-04-12 17:04 | Internal Med Progress Note ---
Subjective Date of Service: Apr 12, 2018 Physician Name Kyle Rowan Attending Physician Gonzalez Leija MD Current Medications Medications (Trade) Dose Ordered Sig/Joseph Route PRN Reason Start Time Stop Time Status Last Admin Dose Admin Acetaminophen (Tylenol) 650 mg Q4H PRN ORAL T>100.5 04/11/18 21:00 05/09/18 20:59 Albuterol/ Ipratropium (Albuterol/ Ipratropium) 3 ml Q6HRT HHN 04/12/18 01:00 04/16/18 18:59 04/12/18 15:10 Aspirin (Ecotrin) 81 mg DAILY ORAL 04/12/18 09:00 05/10/18 08:59 04/12/18 09:14 Clopidogrel Bisulfate (Plavix) 75 mg DAILY ORAL 04/12/18 09:00 05/10/18 08:59 Dextrose (Dextrose 50%) 25 ml STAT PRN IV Hypoglycemia 04/11/18 20:30 05/11/18 20:29 Dextrose (Dextrose 50%) 50 ml STAT PRN IV Hypoglycemia 04/11/18 20:30 05/11/18 20:29 Diltiazem HCl (Cardizem CD) 180 mg DAILY ORAL 04/12/18 09:00 05/12/18 08:59 04/12/18 09:14 Heparin Sodium (Porcine) (Heparin 5000 units/ml) 5,000 units EVERY 12 HOURS SUBQ 04/11/18 21:00 05/10/18 08:59 04/12/18 09:15 Levofloxacin (Levaquin) 500 mg QHS ORAL 04/11/18 21:00 04/18/18 20:59 04/11/18 20:31 Morphine Sulfate (Morphine Sulfate) 2 mg Q4H PRN IVP Severe Pain (Pain Scale 7-10) 04/11/18 21:00 04/18/18 20:59 Ondansetron HCl (Zofran) 4 mg Q6H PRN IVP Nausea & Vomiting 04/11/18 21:00 05/09/18 20:59 Polyethylene Glycol (Miralax) 17 gm DAILYPRN PRN ORAL Constipation 04/11/18 21:00 05/09/18 20:59 Pravastatin Sodium (Pravachol) 40 mg BEDTIME ORAL 04/11/18 21:00 05/10/18 20:59 04/11/18 20:31 Prednisone (predniSONE) 40 mg DAILY ORAL 04/13/18 09:00 05/13/18 08:59 Promethazine HCl/ Codeine (Phenergan with Codeine) 5 ml Q4H PRN ORAL For Cough 04/11/18 21:00 05/11/18 20:59 04/12/18 14:37 Allergies: Coded Allergies: No Known Allergies (Unverified , 03/21/17) ROS Limited/Unobtainable: No Constitutional: Reports: no symptoms HEENT: Reports: no symptoms Cardiovascular: Reports: no symptoms Respiratory: Reports: cough, wheezing Gastrointestinal/Abdominal: Reports: no symptoms Genitourinary: Reports: no symptoms 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: Reports: no symptoms Subjective 72 YO F admitted with wheezing and cough. Now asthma exacerbation and bronchitis. Cover for Int [facility] - Dr Leija. Objective Last Vital Signs Date Time Temp Pulse Resp B/P (MAP) Pulse Ox O2 Delivery O2 Flow Rate FiO2 04/12/18 16:00 98.2 92 20 131/77 (95) 98 98.2 04/12/18 15:30 Room Air 21 Laboratory Tests Test 04/12/18 06:10 White Blood Count 20.4 K/UL (4.8-10.8) H Red Blood Count 4.38 M/UL (4.20-5.40) Hemoglobin 13.4 G/DL (12.0-16.0) Hematocrit 39.6 % (37.0-47.0) Mean Corpuscular Volume 90 FL (80-99) Mean Corpuscular Hemoglobin 30.6 PG (27.0-31.0) Mean Corpuscular Hemoglobin Concent 33.9 G/DL (32.0-36.0) Red Cell Distribution Width 12.2 % (11.6-14.8) Platelet Count 280 K/UL (150-450) Mean Platelet Volume 8.0 FL (6.5-10.1) Neutrophils (%) (Auto) % (45.0-75.0) Lymphocytes (%) (Auto) % (20.0-45.0) Monocytes (%) (Auto) % (1.0-10.0) Eosinophils (%) (Auto) % (0.0-3.0) Basophils (%) (Auto) % (0.0-2.0) Differential Total Cells Counted Neutrophils % (Manual) 86 % (45-75) H Lymphocytes % (Manual) 11 % (20-45) L Monocytes % (Manual) 3 % (1-10) Eosinophils % (Manual) 0 % (0-3) Basophils % (Manual) 0 % (0-2) Band Neutrophils 0 % (0-8) Platelet Estimate Adequate Platelet Morphology Normal Anisocytosis 1+ Sodium Level 144 MMOL/L (136-145) Potassium Level 3.4 MMOL/L (3.5-5.1) L Chloride Level 108 MMOL/L (98-107) H Carbon Dioxide Level 27 MMOL/L (21-32) Anion Gap 9 mmol/L (5-15) Blood Urea Nitrogen 14 mg/dL (7-18) Creatinine 0.9 MG/DL (0.55-1.30) Estimat Glomerular Filtration Rate mL/min (>60) Glucose Level 140 MG/DL (74-106) H Calcium Level 8.7 MG/DL (8.5-10.1) Phosphorus Level 2.7 MG/DL (2.5-4.9) Magnesium Level 2.2 MG/DL (1.8-2.4) Total Bilirubin 0.6 MG/DL (0.2-1.0) Aspartate Amino Transf (AST/SGOT) 14 U/L (15-37) L Alanine Aminotransferase (ALT/SGPT) 28 U/L (12-78) Alkaline Phosphatase 57 U/L (46-116) Total Protein 6.7 G/DL (6.4-8.2) Albumin 3.0 G/DL (3.4-5.0) L Globulin 3.7 g/dL Albumin/Globulin Ratio 0.8 (1.0-2.7) L Microbiology Date/Time Source Procedure Growth Status 04/09/18 21:05 Blood Blood Culture - Preliminary NO GROWTH AFTER 48 HOURS Resulted 04/09/18 20:55 Blood Blood Culture - Preliminary NO GROWTH AFTER 48 HOURS Resulted Intake and Output 04/11/18 04/12/18 19:00 07:00 Intake Total 840 ml Balance 840 ml Intake Oral 840 ml # Voids 4 2 # Bowel Movements 1 1 Objective General Appearance: WD/WN, no apparent distress, alert EENT: PERRL/EOMI, normal ENT inspection Neck: non-tender, normal alignment, supple Cardiovascular: normal peripheral pulses, normal rate, regular rhythm, no gallop/murmur, no JVD Respiratory/Chest: chest wall non-tender, respiratory distress, crackles/rales , rhonchi - bilaterally, expiratory wheezing Abdomen: normal bowel sounds, non tender, soft, no organomegaly, no mass Extremities: normal range of motion, non-tender 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 D/C vanco and cefepime. Start PO levaquin (3) Asthma exacerbation Assessment & Plan: See pulmonary note. Cont duoneb and IV solumedrol (4) Fever (5) HTN (hypertension) Assessment & Plan: Continue cardizem (6) Hypercholesteremia Assessment & Plan: continue pravachol Status: progressing Kyle Rowan MD Apr 12, 2018 17:04
[2018-04-12 20:00] VITALS: BP 127/76
[2018-04-12] MEDS: Levofloxacin 500mg tab ORAL SCH (20:30)
--- NOTE | 2018-04-12 20:47 | Infectious Diseases Prog Note ---
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 Will continue to follow along with you. Subjective Allergies: Coded Allergies: No Known Allergies (Unverified , 03/21/17) Subjective afebrile at RA leukocytosis increased to 20 again Bcx NTD Objective Vital Signs Last 24 Hour Vital Signs Date Time Temp Pulse Resp B/P (MAP) Pulse Ox O2 Delivery O2 Flow Rate FiO2 04/12/18 16:00 98.2 92 20 131/77 (95) 98 98.2 04/12/18 15:30 91 18 96 Room Air 21 04/12/18 15:10 91 18 94 Room Air 21 04/12/18 12:00 98.0 93 20 134/88 (103) 96 98.0 04/12/18 09:14 89 142/77 04/12/18 08:14 89 16 98 Room Air 21 04/12/18 08:04 89 16 98 Room Air 21 04/12/18 08:00 96.6 91 20 142/77 97 Room Air 96.6 04/12/18 04:00 96.8 92 20 148/96 97 Room Air 96.8 04/12/18 01:31 68 18 98 Room Air 21 04/12/18 01:21 71 18 97 Room Air 21 04/12/18 00:00 98.2 81 20 150/88 100 Room Air 98.2 Height (Feet): 5 Height (Inches): 7.00 Weight (Pounds): 198 Objective General Appearance: WD/WN, no apparent distress Lines, tubes and drains: peripheral HEENT: normocephalic, atraumatic Neck: non-tender, normal alignment Respiratory/Chest: chest wall non-tender, lungs clear Cardiovascular/Chest: normal peripheral pulses Abdomen: normal bowel sounds Extremities: normal range of motion Microbiology Date/Time Source Procedure Growth Status 04/09/18 21:05 Blood Blood Culture - Preliminary NO GROWTH AFTER 48 HOURS Resulted 04/09/18 20:55 Blood Blood Culture - Preliminary NO GROWTH AFTER 48 HOURS Resulted Laboratory Tests Test 04/12/18 06:10 White Blood Count 20.4 K/UL (4.8-10.8) H Red Blood Count 4.38 M/UL (4.20-5.40) Hemoglobin 13.4 G/DL (12.0-16.0) Hematocrit 39.6 % (37.0-47.0) Mean Corpuscular Volume 90 FL (80-99) Mean Corpuscular Hemoglobin 30.6 PG (27.0-31.0) Mean Corpuscular Hemoglobin Concent 33.9 G/DL (32.0-36.0) Red Cell Distribution Width 12.2 % (11.6-14.8) Platelet Count 280 K/UL (150-450) Mean Platelet Volume 8.0 FL (6.5-10.1) Neutrophils (%) (Auto) % (45.0-75.0) Lymphocytes (%) (Auto) % (20.0-45.0) Monocytes (%) (Auto) % (1.0-10.0) Eosinophils (%) (Auto) % (0.0-3.0) Basophils (%) (Auto) % (0.0-2.0) Differential Total Cells Counted Neutrophils % (Manual) 86 % (45-75) H Lymphocytes % (Manual) 11 % (20-45) L Monocytes % (Manual) 3 % (1-10) Eosinophils % (Manual) 0 % (0-3) Basophils % (Manual) 0 % (0-2) Band Neutrophils 0 % (0-8) Platelet Estimate Adequate Platelet Morphology Normal Anisocytosis 1+ Sodium Level 144 MMOL/L (136-145) Potassium Level 3.4 MMOL/L (3.5-5.1) L Chloride Level 108 MMOL/L (98-107) H Carbon Dioxide Level 27 MMOL/L (21-32) Anion Gap 9 mmol/L (5-15) Blood Urea Nitrogen 14 mg/dL (7-18) Creatinine 0.9 MG/DL (0.55-1.30) Estimat Glomerular Filtration Rate mL/min (>60) Glucose Level 140 MG/DL (74-106) H Calcium Level 8.7 MG/DL (8.5-10.1) Phosphorus Level 2.7 MG/DL (2.5-4.9) Magnesium Level 2.2 MG/DL (1.8-2.4) Total Bilirubin 0.6 MG/DL (0.2-1.0) Aspartate Amino Transf (AST/SGOT) 14 U/L (15-37) L Alanine Aminotransferase (ALT/SGPT) 28 U/L (12-78) Alkaline Phosphatase 57 U/L (46-116) Total Protein 6.7 G/DL (6.4-8.2) Albumin 3.0 G/DL (3.4-5.0) L Globulin 3.7 g/dL Albumin/Globulin Ratio 0.8 (1.0-2.7) L Current Medications Medications (Trade) Dose Ordered Sig/Joseph Route PRN Reason Start Time Stop Time Status Last Admin Dose Admin Acetaminophen (Tylenol) 650 mg Q4H PRN ORAL T>100.5 04/11/18 21:00 05/09/18 20:59 Albuterol/ Ipratropium (Albuterol/ Ipratropium) 3 ml Q6HRT HHN 04/12/18 01:00 04/16/18 18:59 04/12/18 15:10 Aspirin (Ecotrin) 81 mg DAILY ORAL 04/12/18 09:00 05/10/18 08:59 04/12/18 09:14 Clopidogrel Bisulfate (Plavix) 75 mg DAILY ORAL 04/12/18 09:00 05/10/18 08:59 Dextrose (Dextrose 50%) 25 ml STAT PRN IV Hypoglycemia 04/11/18 20:30 05/11/18 20:29 Dextrose (Dextrose 50%) 50 ml STAT PRN IV Hypoglycemia 04/11/18 20:30 05/11/18 20:29 Diltiazem HCl (Cardizem CD) 180 mg DAILY ORAL 04/12/18 09:00 05/12/18 08:59 04/12/18 09:14 Heparin Sodium (Porcine) (Heparin 5000 units/ml) 5,000 units EVERY 12 HOURS SUBQ 04/11/18 21:00 05/10/18 08:59 04/12/18 20:31 Levofloxacin (Levaquin) 500 mg QHS ORAL 04/11/18 21:00 04/18/18 20:59 04/12/18 20:30 Morphine Sulfate (Morphine Sulfate) 2 mg Q4H PRN IVP Severe Pain (Pain Scale 7-10) 04/11/18 21:00 04/18/18 20:59 Ondansetron HCl (Zofran) 4 mg Q6H PRN IVP Nausea & Vomiting 04/11/18 21:00 05/09/18 20:59 Polyethylene Glycol (Miralax) 17 gm DAILYPRN PRN ORAL Constipation 04/11/18 21:00 05/09/18 20:59 Pravastatin Sodium (Pravachol) 40 mg BEDTIME ORAL 04/11/18 21:00 05/10/18 20:59 04/12/18 20:30 Prednisone (predniSONE) 40 mg DAILY ORAL 04/13/18 09:00 05/13/18 08:59 Promethazine HCl/ Codeine (Phenergan with Codeine) 5 ml Q4H PRN ORAL For Cough 04/11/18 21:00 05/11/18 20:59 04/12/18 18:41 Cally Rothman M.D. Apr 12, 2018 20:47
[2018-04-13] VITALS: BP 128/78
[2018-04-13] MEDS: Albuterol/Ipratropium 3ml neb HHN SCH ×4 (01:02→19:37)
[2018-04-13 04:00] VITALS: BP_SYST 125; BP_SYST 134; BP_DIAS 73; BP_DIAS 78
[2018-04-13] MEDS: Promethazine/Codeine 5ml UD ORAL PRN ×3 (05:56→19:40)
[2018-04-13] MEDS ORDERED: ALBUTEROL SULF8.5 GM INH ×2 (07:33→07:35)
[2018-04-13] MEDS ORDERED: LEVAQUIN500 MG ORAL (07:37)
[2018-04-13] MEDS ORDERED: MEDROL4 MG ORAL (07:37)
[2018-04-13 08:00] VITALS: BP 105/64
[2018-04-13] MEDS: Aspirin EC 81mg tab ORAL SCH (08:30)
[2018-04-13] MEDS: dilTIAZem HCl CD 180mg cap ORAL SCH (08:30)
[2018-04-13] MEDS: Heparin 5000 units/ml inj SUBQ SCH ×2 (08:31→21:21)
[2018-04-13 08:53] LABS: BASOPHILS % (AUTO) 1.1 % (0.0-2.0); HEMATOCRIT 36.9 % (37.0-47.0); HEMOGLOBIN 12.1 G/DL (12.0-16.0); LYMPHOCYTES % (AUTO) 38.2 % (20.0-45.0); MEAN CORPUSCULAR VOLUME 91 FL (80-99); MONOCYTES % (AUTO) 8.1 % (1.0-10.0); NEUTROPHILS % (AUTO) 51.7 % (45.0-75.0); PLATELET COUNT 285 K/UL (150-450); RED BLOOD COUNT 4.06 M/UL (4.20-5.40); RED CELL DISTRIBUTION WIDTH 12.8 % (11.6-14.8); WHITE BLOOD COUNT 15.6 K/UL (4.8-10.8)
[2018-04-13 09:22] LABS: ALANINE AMINOTRANSFERASE 30 U/L (12-78); ALBUMIN 2.9 G/DL (3.4-5.0); ALBUMIN/GLOBULIN RATIO 0.9 (1.0-2.7); ALKALINE PHOSPHATASE 55 U/L (46-116); ANION GAP 8 mmol/L (5-15); ASPARTATE AMINO TRANSFERASE 17 U/L (15-37); BILIRUBIN,TOTAL 0.8 MG/DL (0.2-1.0); BLOOD UREA NITROGEN 17 mg/dL (7-18); CALCIUM 8.5 MG/DL (8.5-10.1); CARBON DIOXIDE 29 MMOL/L (21-32); CHLORIDE 106 MMOL/L (98-107); PHOSPHORUS 3.4 MG/DL (2.5-4.9); POTASSIUM 2.9 MMOL/L (3.5-5.1); SODIUM 143 MMOL/L (136-145)
[2018-04-13] MEDS ORDERED: Tubing IV Secondary IV ONE (09:41)
[2018-04-13 12:00] VITALS: BP 144/95
--- NOTE | 2018-04-13 12:59 | Internal Med Progress Note ---
Subjective Date of Service: Apr 13, 2018 Physician Name RowanKyle garcia Attending Physician Gonzalez Leija MD Current Medications Medications (Trade) Dose Ordered Sig/Joseph Route PRN Reason Start Time Stop Time Status Last Admin Dose Admin Acetaminophen (Tylenol) 650 mg Q4H PRN ORAL T>100.5 04/11/18 21:00 05/09/18 20:59 Albuterol/ Ipratropium (Albuterol/ Ipratropium) 3 ml Q6HRT HHN 04/12/18 01:00 04/16/18 18:59 04/13/18 12:09 Aspirin (Ecotrin) 81 mg DAILY ORAL 04/12/18 09:00 05/10/18 08:59 04/13/18 08:30 Clopidogrel Bisulfate (Plavix) 75 mg DAILY ORAL 04/12/18 09:00 05/10/18 08:59 04/13/18 08:29 Dextrose (Dextrose 50%) 25 ml STAT PRN IV Hypoglycemia 04/11/18 20:30 05/11/18 20:29 Dextrose (Dextrose 50%) 50 ml STAT PRN IV Hypoglycemia 04/11/18 20:30 05/11/18 20:29 Diltiazem HCl (Cardizem CD) 180 mg DAILY ORAL 04/12/18 09:00 05/12/18 08:59 04/12/18 09:14 Heparin Sodium (Porcine) (Heparin 5000 units/ml) 5,000 units EVERY 12 HOURS SUBQ 04/11/18 21:00 05/10/18 08:59 04/13/18 08:31 Levofloxacin (Levaquin) 500 mg QHS ORAL 04/11/18 21:00 04/18/18 20:59 04/12/18 20:30 Morphine Sulfate (Morphine Sulfate) 2 mg Q4H PRN IVP Severe Pain (Pain Scale 7-10) 04/11/18 21:00 04/18/18 20:59 Ondansetron HCl (Zofran) 4 mg Q6H PRN IVP Nausea & Vomiting 04/11/18 21:00 05/09/18 20:59 Polyethylene Glycol (Miralax) 17 gm DAILYPRN PRN ORAL Constipation 04/11/18 21:00 05/09/18 20:59 Potassium Chloride 100 ml @ 100 mls/hr Q1H IVPB 04/13/18 10:00 7/7/18 13:59 04/13/18 11:59 Pravastatin Sodium (Pravachol) 40 mg BEDTIME ORAL 04/11/18 21:00 05/10/18 20:59 04/12/18 20:30 Prednisone (predniSONE) 40 mg DAILY ORAL 04/13/18 09:00 05/13/18 08:59 04/13/18 08:29 Promethazine HCl/ Codeine (Phenergan with Codeine) 5 ml Q4H PRN ORAL For Cough 04/11/18 21:00 05/11/18 20:59 04/13/18 11:58 Allergies: Coded Allergies: No Known Allergies (Unverified , 03/21/17) ROS Limited/Unobtainable: No Constitutional: Reports: no symptoms HEENT: Reports: no symptoms Cardiovascular: Reports: no symptoms Respiratory: Reports: cough Gastrointestinal/Abdominal: Reports: no symptoms Genitourinary: Reports: no symptoms 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: Reports: no symptoms Subjective 72 YO F admitted with wheezing and cough. Now asthma exacerbation and bronchitis. Cover for Int Med - Dr Leija. Discharge held due to hypokalemia Objective Last Vital Signs Date Time Temp Pulse Resp B/P (MAP) Pulse Ox O2 Delivery O2 Flow Rate FiO2 04/13/18 12:19 85 18 100 Room Air 21 04/13/18 12:00 97.8 144/95 (111) 97.8 Laboratory Tests Test 04/13/18 05:50 White Blood Count 15.6 K/UL (4.8-10.8) H Red Blood Count 4.06 M/UL (4.20-5.40) L Hemoglobin 12.1 G/DL (12.0-16.0) Hematocrit 36.9 % (37.0-47.0) L Mean Corpuscular Volume 91 FL (80-99) Mean Corpuscular Hemoglobin 29.9 PG (27.0-31.0) Mean Corpuscular Hemoglobin Concent 32.8 G/DL (32.0-36.0) Red Cell Distribution Width 12.8 % (11.6-14.8) Platelet Count 285 K/UL (150-450) Mean Platelet Volume 7.2 FL (6.5-10.1) Neutrophils (%) (Auto) 51.7 % (45.0-75.0) Lymphocytes (%) (Auto) 38.2 % (20.0-45.0) Monocytes (%) (Auto) 8.1 % (1.0-10.0) Eosinophils (%) (Auto) 1.0 % (0.0-3.0) Basophils (%) (Auto) 1.1 % (0.0-2.0) Sodium Level 143 MMOL/L (136-145) Potassium Level 2.9 MMOL/L (3.5-5.1) L Chloride Level 106 MMOL/L (98-107) Carbon Dioxide Level 29 MMOL/L (21-32) Anion Gap 8 mmol/L (5-15) Blood Urea Nitrogen 17 mg/dL (7-18) Creatinine 1.0 MG/DL (0.55-1.30) Estimat Glomerular Filtration Rate mL/min (>60) Glucose Level 85 MG/DL (74-106) Calcium Level 8.5 MG/DL (8.5-10.1) Phosphorus Level 3.4 MG/DL (2.5-4.9) Magnesium Level 2.3 MG/DL (1.8-2.4) Total Bilirubin 0.8 MG/DL (0.2-1.0) Aspartate Amino Transf (AST/SGOT) 17 U/L (15-37) Alanine Aminotransferase (ALT/SGPT) 30 U/L (12-78) Alkaline Phosphatase 55 U/L (46-116) Total Protein 6.2 G/DL (6.4-8.2) L Albumin 2.9 G/DL (3.4-5.0) L Globulin 3.3 g/dL Albumin/Globulin Ratio 0.9 (1.0-2.7) L Intake and Output 04/12/18 04/13/18 19:00 07:00 Intake Total 600 ml 350 ml Balance 600 ml 350 ml Intake Oral 600 ml 350 ml # Voids 3 Objective General Appearance: WD/WN, no apparent distress, alert EENT: PERRL/EOMI, normal ENT inspection Neck: non-tender, normal alignment, supple Cardiovascular: normal peripheral pulses, normal rate, regular rhythm, no gallop/murmur, no JVD Respiratory/Chest: chest wall non-tender, respiratory distress, crackles/rales , rhonchi - bilaterally, expiratory wheezing Abdomen: normal bowel sounds, non tender, soft, no organomegaly, no mass Extremities: normal range of motion, non-tender 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 D/C vanco and cefepime. Start PO levaquin (3) Asthma exacerbation Assessment & Plan: See pulmonary note. Cont duoneb and IV solumedrol (4) Fever (5) HTN (hypertension) Assessment & Plan: Continue cardizem (6) Hypercholesteremia Assessment & Plan: continue pravachol (7) Hypokalemia Assessment & Plan: Hold discharge. Replace potassium. Status: progressing Assessment/Plan Discharge plan: Home self care Kyle Rowan MD Apr 13, 2018 12:59
[2018-04-13 16:00] VITALS: BP 150/90
--- NOTE | 2018-04-13 19:25 | Pulmonology Progress Note ---
Assessment/Plan Problems: (1) Acute febrile illness (2) Pneumonia (3) Cerebral vascular disease (4) HTN (hypertension) Assessment/Plan K spplement wbc lower, still not normal change steroids to po improving less short of breath chest PT monitor BP check electrolytes check sputum cultures Subjective ROS Limited/Unobtainable: No Constitutional: Reports: no symptoms HEENT: Repors: no symptoms Respiratory: Reports: no symptoms Allergies: Coded Allergies: No Known Allergies (Unverified , 03/21/17) Objective Last 24 Hour Vital Signs Date Time Temp Pulse Resp B/P (MAP) Pulse Ox O2 Delivery O2 Flow Rate FiO2 04/13/18 16:00 98.2 98 18 150/90 (110) 98 98.2 04/13/18 12:19 85 18 100 Room Air 21 04/13/18 12:09 82 18 94 Room Air 21 04/13/18 12:00 97.8 87 18 144/95 (111) 98 97.8 04/13/18 08:30 90 105/64 04/13/18 08:15 Room Air 04/13/18 08:00 98.4 90 20 105/64 (78) 95 98.4 04/13/18 07:34 84 16 98 Room Air 21 04/13/18 07:24 82 18 95 Room Air 21 04/13/18 04:00 97.5 75 20 134/78 (96) 97.5 04/13/18 04:00 98.3 70 20 125/73 (90) 95 98.3 04/13/18 01:14 82 18 97 Room Air 21 04/13/18 01:02 79 20 92 Room Air 21 04/13/18 00:00 98.0 70 20 128/78 (95) 95 98.0 04/12/18 21:32 Room Air 21 04/12/18 21:00 Room Air 04/12/18 20:00 98.2 75 20 127/76 (93) 96 98.2 Intake and Output 04/12/18 04/13/18 19:00 07:00 Intake Total 600 ml 350 ml Balance 600 ml 350 ml Intake Oral 600 ml 350 ml # Voids 3 General Appearance: WD/WN, no acute distress HEENT: atraumatic Respiratory/Chest: chest wall non-tender, lungs clear Breasts: no masses Cardiovascular: normal peripheral pulses, normal rate Abdomen: normal bowel sounds, soft, non tender Genitourinary: normal external genitalia Extremities: no cyanosis 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 Laboratory Tests 04/13/18 05:50: White Blood Count 15.6H, Red Blood Count 4.06L, Hemoglobin 12.1, Hematocrit 36.9L, Mean Corpuscular Volume 91, Mean Corpuscular Hemoglobin 29.9, Mean Corpuscular Hemoglobin Concent 32.8, Red Cell Distribution Width 12.8, Platelet Count 285, Mean Platelet Volume 7.2, Neutrophils (%) (Auto) 51.7, Lymphocytes (% ) (Auto) 38.2, Monocytes (%) (Auto) 8.1, Eosinophils (%) (Auto) 1.0, Basophils ( %) (Auto) 1.1, Sodium Level 143, Potassium Level 2.9L, Chloride Level 106, Carbon Dioxide Level 29, Anion Gap 8, Blood Urea Nitrogen 17, Creatinine 1.0, Estimat Glomerular Filtration Rate , Glucose Level 85, Calcium Level 8.5, Phosphorus Level 3.4, Magnesium Level 2.3, Total Bilirubin 0.8, Aspartate Amino Transf (AST/SGOT) 17, Alanine Aminotransferase (ALT/SGPT) 30, Alkaline Phosphatase 55, Total Protein 6.2L, Albumin 2.9L, Globulin 3.3, Albumin/ Globulin Ratio 0.9L Current Medications Medications (Trade) Dose Ordered Sig/Joseph Route PRN Reason Start Time Stop Time Status Last Admin Dose Admin Acetaminophen (Tylenol) 650 mg Q4H PRN ORAL T>100.5 04/11/18 21:00 05/09/18 20:59 Albuterol/ Ipratropium (Albuterol/ Ipratropium) 3 ml Q6HRT HHN 04/12/18 01:00 04/16/18 18:59 04/13/18 12:09 Aspirin (Ecotrin) 81 mg DAILY ORAL 04/12/18 09:00 05/10/18 08:59 04/13/18 08:30 Clopidogrel Bisulfate (Plavix) 75 mg DAILY ORAL 04/12/18 09:00 05/10/18 08:59 04/13/18 08:29 Dextrose (Dextrose 50%) 25 ml STAT PRN IV Hypoglycemia 04/11/18 20:30 05/11/18 20:29 Dextrose (Dextrose 50%) 50 ml STAT PRN IV Hypoglycemia 04/11/18 20:30 05/11/18 20:29 Diltiazem HCl (Cardizem CD) 180 mg DAILY ORAL 04/12/18 09:00 05/12/18 08:59 04/12/18 09:14 Heparin Sodium (Porcine) (Heparin 5000 units/ml) 5,000 units EVERY 12 HOURS SUBQ 04/11/18 21:00 05/10/18 08:59 04/13/18 08:31 Levofloxacin (Levaquin) 500 mg QHS ORAL 04/11/18 21:00 04/13/18 23:59 04/12/18 20:30 Morphine Sulfate (Morphine Sulfate) 2 mg Q4H PRN IVP Severe Pain (Pain Scale 7-10) 04/11/18 21:00 04/18/18 20:59 Ondansetron HCl (Zofran) 4 mg Q6H PRN IVP Nausea & Vomiting 04/11/18 21:00 05/09/18 20:59 Polyethylene Glycol (Miralax) 17 gm DAILYPRN PRN ORAL Constipation 04/11/18 21:00 05/09/18 20:59 Pravastatin Sodium (Pravachol) 40 mg BEDTIME ORAL 04/11/18 21:00 05/10/18 20:59 04/12/18 20:30 Prednisone (predniSONE) 40 mg DAILY ORAL 04/13/18 09:00 05/13/18 08:59 04/13/18 08:29 Promethazine HCl/ Codeine (Phenergan with Codeine) 5 ml Q4H PRN ORAL For Cough 04/11/18 21:00 05/11/18 20:59 04/13/18 11:58 Michelle Jerry MD Apr 13, 2018 19:25
[2018-04-13 20:00] VITALS: BP 148/89
[2018-04-13] MEDS: Levofloxacin 500mg tab ORAL SCH (21:19)
--- NOTE | 2018-04-13 23:27 | General Progress Note ---
Assessment/Plan Status: stable, progressing Subjective 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: Reports: anxiety, emotional problems Allergies: Coded Allergies: No Known Allergies (Unverified , 03/21/17) Objective Last 24 Hour Vital Signs Date Time Temp Pulse Resp B/P (MAP) Pulse Ox O2 Delivery O2 Flow Rate FiO2 04/13/18 21:00 Room Air 04/13/18 20:00 98.5 101 18 148/89 (108) 97 98.5 04/13/18 19:44 87 18 100 Room Air 21 04/13/18 19:37 84 18 95 Room Air 21 04/13/18 16:00 98.2 98 18 150/90 (110) 98 98.2 04/13/18 12:19 85 18 100 Room Air 21 04/13/18 12:09 82 18 94 Room Air 21 04/13/18 12:00 97.8 87 18 144/95 (111) 98 97.8 04/13/18 08:30 90 105/64 04/13/18 08:15 Room Air 04/13/18 08:00 98.4 90 20 105/64 (78) 95 98.4 04/13/18 07:34 84 16 98 Room Air 21 04/13/18 07:24 82 18 95 Room Air 21 04/13/18 04:00 97.5 75 20 134/78 (96) 97.5 04/13/18 04:00 98.3 70 20 125/73 (90) 95 98.3 04/13/18 01:14 82 18 97 Room Air 21 04/13/18 01:02 79 20 92 Room Air 21 04/13/18 00:00 98.0 70 20 128/78 (95) 95 98.0 Intake and Output 04/12/18 04/13/18 19:00 07:00 Intake Total 600 ml 350 ml Balance 600 ml 350 ml Intake Oral 600 ml 350 ml # Voids 3 Laboratory Tests 04/13/18 05:50: White Blood Count 15.6H, Red Blood Count 4.06L, Hemoglobin 12.1, Hematocrit 36.9L, Mean Corpuscular Volume 91, Mean Corpuscular Hemoglobin 29.9, Mean Corpuscular Hemoglobin Concent 32.8, Red Cell Distribution Width 12.8, Platelet Count 285, Mean Platelet Volume 7.2, Neutrophils (%) (Auto) 51.7, Lymphocytes (% ) (Auto) 38.2, Monocytes (%) (Auto) 8.1, Eosinophils (%) (Auto) 1.0, Basophils ( %) (Auto) 1.1, Sodium Level 143, Potassium Level 2.9L, Chloride Level 106, Carbon Dioxide Level 29, Anion Gap 8, Blood Urea Nitrogen 17, Creatinine 1.0, Estimat Glomerular Filtration Rate , Glucose Level 85, Calcium Level 8.5, Phosphorus Level 3.4, Magnesium Level 2.3, Total Bilirubin 0.8, Aspartate Amino Transf (AST/SGOT) 17, Alanine Aminotransferase (ALT/SGPT) 30, Alkaline Phosphatase 55, Total Protein 6.2L, Albumin 2.9L, Globulin 3.3, Albumin/ Globulin Ratio 0.9L Height (Feet): 5 Height (Inches): 7.00 Weight (Pounds): 198 General Appearance: no apparent distress, alert Neurologic: oriented x 3, responsive Jacinto Bustos MD Apr 13, 2018 23:27
[2018-04-14] VITALS: BP 149/87
[2018-04-14] MEDS: Albuterol/Ipratropium 3ml neb HHN SCH ×2 (00:47→07:36)
[2018-04-14 04:00] VITALS: BP 132/81
[2018-04-14] MEDS: Promethazine/Codeine 5ml UD ORAL PRN (06:04)
[2018-04-14 08:00] VITALS: BP 122/62
[2018-04-14 08:36] LABS: HEMATOCRIT 38.7 % (37.0-47.0); MEAN CORPUSCULAR VOLUME 91 FL (80-99); PLATELET COUNT 309 K/UL (150-450); RED BLOOD COUNT 4.23 M/UL (4.20-5.40); RED CELL DISTRIBUTION WIDTH 12.6 % (11.6-14.8); WHITE BLOOD COUNT 18.2 K/UL (4.8-10.8)
[2018-04-14 08:55] LABS: ALANINE AMINOTRANSFERASE 31 U/L (12-78); ALBUMIN 3.1 G/DL (3.4-5.0); ALBUMIN/GLOBULIN RATIO 0.9 (1.0-2.7); ALKALINE PHOSPHATASE 54 U/L (46-116); ANION GAP 8 mmol/L (5-15); ASPARTATE AMINO TRANSFERASE 17 U/L (15-37); BILIRUBIN,TOTAL 0.9 MG/DL (0.2-1.0); BLOOD UREA NITROGEN 13 mg/dL (7-18); CALCIUM 8.6 MG/DL (8.5-10.1); CARBON DIOXIDE 27 MMOL/L (21-32); CHLORIDE 106 MMOL/L (98-107); POTASSIUM 3.5 MMOL/L (3.5-5.1); SODIUM 141 MMOL/L (136-145)
[2018-04-14 09:01] LABS: PHOSPHORUS 3.1 MG/DL (2.5-4.9)
[2018-04-14] MEDS: Aspirin EC 81mg tab ORAL SCH (09:40)
[2018-04-14] MEDS: dilTIAZem HCl CD 180mg cap ORAL SCH (09:40)
[2018-04-14] MEDS: Heparin 5000 units/ml inj SUBQ SCH (09:45)
[2018-04-14 12:00] VITALS: BP 136/87
--- NOTE | 2018-04-14 13:07 | Internal Med Progress Note ---
Subjective Date of Service: Apr 14, 2018 Physician Name Kyle Rowan Attending Physician Gonzalez Leija MD Current Medications Medications (Trade) Dose Ordered Sig/Joseph Route PRN Reason Start Time Stop Time Status Last Admin Dose Admin Acetaminophen (Tylenol) 650 mg Q4H PRN ORAL T>100.5 04/11/18 21:00 05/09/18 20:59 Albuterol/ Ipratropium (Albuterol/ Ipratropium) 3 ml Q6HRT HHN 04/12/18 01:00 04/16/18 18:59 04/14/18 07:36 Aspirin (Ecotrin) 81 mg DAILY ORAL 04/12/18 09:00 05/10/18 08:59 04/14/18 09:40 Clonidine HCl (Catapres Tab) 0.1 mg Q6HR PRN ORAL For High Blood Pressure 04/14/18 06:45 05/14/18 06:44 Clopidogrel Bisulfate (Plavix) 75 mg DAILY ORAL 04/12/18 09:00 05/10/18 08:59 04/13/18 08:29 Dextrose (Dextrose 50%) 25 ml STAT PRN IV Hypoglycemia 04/11/18 20:30 05/11/18 20:29 Dextrose (Dextrose 50%) 50 ml STAT PRN IV Hypoglycemia 04/11/18 20:30 05/11/18 20:29 Diltiazem HCl (Cardizem CD) 180 mg DAILY ORAL 04/12/18 09:00 05/12/18 08:59 04/14/18 09:40 Heparin Sodium (Porcine) (Heparin 5000 units/ml) 5,000 units EVERY 12 HOURS SUBQ 04/11/18 21:00 05/10/18 08:59 04/14/18 09:45 Morphine Sulfate (Morphine Sulfate) 2 mg Q4H PRN IVP Severe Pain (Pain Scale 7-10) 04/11/18 21:00 04/18/18 20:59 Ondansetron HCl (Zofran) 4 mg Q6H PRN IVP Nausea & Vomiting 04/11/18 21:00 05/09/18 20:59 Polyethylene Glycol (Miralax) 17 gm DAILYPRN PRN ORAL Constipation 04/11/18 21:00 05/09/18 20:59 Pravastatin Sodium (Pravachol) 40 mg BEDTIME ORAL 04/11/18 21:00 05/10/18 20:59 04/13/18 21:19 Prednisone (predniSONE) 40 mg DAILY ORAL 04/13/18 09:00 05/13/18 08:59 04/14/18 09:42 Promethazine HCl/ Codeine (Phenergan with Codeine) 5 ml Q4H PRN ORAL For Cough 04/11/18 21:00 05/11/18 20:59 04/14/18 06:04 Allergies: Coded Allergies: No Known Allergies (Unverified , 03/21/17) ROS Limited/Unobtainable: No Constitutional: Reports: no symptoms HEENT: Reports: no symptoms Cardiovascular: Reports: no symptoms Respiratory: Reports: cough Gastrointestinal/Abdominal: Reports: no symptoms Genitourinary: Reports: no symptoms 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: Reports: no symptoms Subjective 72 YO F admitted with wheezing and cough. Now asthma exacerbation and bronchitis. Cover for Int Med - Dr Leija. Discharge held on Sat due to hypokalemia Objective Last Vital Signs Date Time Temp Pulse Resp B/P (MAP) Pulse Ox O2 Delivery O2 Flow Rate FiO2 04/14/18 09:40 107 122/62 04/14/18 09:00 Room Air 04/14/18 08:00 98.0 20 99 98.0 04/14/18 07:43 21 Laboratory Tests Test 04/14/18 07:45 White Blood Count 18.2 K/UL (4.8-10.8) H Red Blood Count 4.23 M/UL (4.20-5.40) Hemoglobin 13.0 G/DL (12.0-16.0) Hematocrit 38.7 % (37.0-47.0) Mean Corpuscular Volume 91 FL (80-99) Mean Corpuscular Hemoglobin 30.7 PG (27.0-31.0) Mean Corpuscular Hemoglobin Concent 33.6 G/DL (32.0-36.0) Red Cell Distribution Width 12.6 % (11.6-14.8) Platelet Count 309 K/UL (150-450) Mean Platelet Volume 7.3 FL (6.5-10.1) Neutrophils (%) (Auto) % (45.0-75.0) Lymphocytes (%) (Auto) % (20.0-45.0) Monocytes (%) (Auto) % (1.0-10.0) Eosinophils (%) (Auto) % (0.0-3.0) Basophils (%) (Auto) % (0.0-2.0) Differential Total Cells Counted 100 Neutrophils % (Manual) 50 % (45-75) Lymphocytes % (Manual) 39 % (20-45) Monocytes % (Manual) 11 % (1-10) H Eosinophils % (Manual) 0 % (0-3) Basophils % (Manual) 0 % (0-2) Band Neutrophils 0 % (0-8) Platelet Estimate Adequate Platelet Morphology Normal Red Blood Cell Morphology Hypochromasia 1+ Sodium Level 141 MMOL/L (136-145) Potassium Level 3.5 MMOL/L (3.5-5.1) Chloride Level 106 MMOL/L (98-107) Carbon Dioxide Level 27 MMOL/L (21-32) Anion Gap 8 mmol/L (5-15) Blood Urea Nitrogen 13 mg/dL (7-18) Creatinine 1.0 MG/DL (0.55-1.30) Estimat Glomerular Filtration Rate mL/min (>60) Glucose Level 136 MG/DL (74-106) H Calcium Level 8.6 MG/DL (8.5-10.1) Phosphorus Level 3.1 MG/DL (2.5-4.9) Magnesium Level 2.3 MG/DL (1.8-2.4) Total Bilirubin 0.9 MG/DL (0.2-1.0) Aspartate Amino Transf (AST/SGOT) 17 U/L (15-37) Alanine Aminotransferase (ALT/SGPT) 31 U/L (12-78) Alkaline Phosphatase 54 U/L (46-116) Total Protein 6.6 G/DL (6.4-8.2) Albumin 3.1 G/DL (3.4-5.0) L Globulin 3.5 g/dL Albumin/Globulin Ratio 0.9 (1.0-2.7) L Intake and Output 04/13/18 04/14/18 19:00 07:00 Intake Total 1000 ml 250 ml Balance 1000 ml 250 ml Intake Oral 250 ml Other 1000 ml # Voids 4 5 Objective General Appearance: WD/WN, no apparent distress, alert EENT: PERRL/EOMI, normal ENT inspection Neck: non-tender, normal alignment, supple Cardiovascular: normal peripheral pulses, normal rate, regular rhythm, no gallop/murmur, no JVD Respiratory/Chest: chest wall non-tender, respiratory distress, crackles/rales , rhonchi - bilaterally, expiratory wheezing Abdomen: normal bowel sounds, non tender, soft, no organomegaly, no mass Extremities: normal range of motion, non-tender Neurologic: prehemmer II-XII grossly normal, no motor/sensory deficits Skin: normal pigmentation, warm/dry Assessment/Plan Problem List: (1) Cough (2) Bronchitis Assessment & Plan: See ID note. D/C vanco and cefepime. Start PO levaquin (3) Asthma exacerbation Assessment & Plan: See pulmonary note. Cont duoneb and IV solumedrol (4) Fever (5) HTN (hypertension) Assessment & Plan: Continue cardizem (6) Hypercholesteremia Assessment & Plan: continue pravachol (7) Hypokalemia Assessment & Plan: Hold discharge. Replace potassium. Assessment/Plan Discharge plan: Home self care on PO levaquin Kyle Rowan MD Apr 14, 2018 13:07
--- NOTE | 2018-04-14 18:30 | Pulmonology Progress Note ---
Assessment/Plan Problems: (1) Acute febrile illness (2) Pneumonia (3) Cerebral vascular disease (4) HTN (hypertension) Assessment/Plan improving K spplement wbc lower, still not normal change steroids to po improving less short of breath chest PT dc home today Subjective ROS Limited/Unobtainable: No Allergies: Coded Allergies: No Known Allergies (Unverified , 03/21/17) Objective Last 24 Hour Vital Signs Date Time Temp Pulse Resp B/P (MAP) Pulse Ox O2 Delivery O2 Flow Rate FiO2 04/14/18 13:32 98.8 98.8 04/14/18 12:00 97.0 104 20 136/87 (103) 97 97.0 04/14/18 09:40 107 122/62 04/14/18 09:00 Room Air 04/14/18 08:00 98.0 107 20 122/62 (82) 99 98.0 04/14/18 07:43 96 16 99 Room Air 21 04/14/18 07:37 96 20 96 Room Air 21 04/14/18 04:00 98.4 91 18 132/81 (98) 95 98.4 04/14/18 00:53 94 18 99 Room Air 21 04/14/18 00:47 79 18 96 Room Air 21 04/14/18 00:00 98.3 96 18 149/87 (107) 96 98.3 04/13/18 21:00 Room Air 04/13/18 20:00 98.5 101 18 148/89 (108) 97 98.5 04/13/18 19:44 87 18 100 Room Air 21 04/13/18 19:37 84 18 95 Room Air 21 Intake and Output 04/13/18 04/14/18 19:00 07:00 Intake Total 1000 ml 250 ml Balance 1000 ml 250 ml Intake Oral 250 ml Other 1000 ml # Voids 4 5 General Appearance: WD/WN HEENT: normocephalic, mucous membranes moist Respiratory/Chest: chest wall non-tender, normal breath sounds Cardiovascular: normal rate Abdomen: normal bowel sounds, soft, non tender Extremities: no cyanosis Skin: no ulcers 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: no motor/sensory deficits Laboratory Tests 04/14/18 07:45: White Blood Count 18.2H, Red Blood Count 4.23, Hemoglobin 13.0, Hematocrit 38.7 , Mean Corpuscular Volume 91, Mean Corpuscular Hemoglobin 30.7, Mean Corpuscular Hemoglobin Concent 33.6, Red Cell Distribution Width 12.6, Platelet Count 309, Mean Platelet Volume 7.3, Neutrophils (%) (Auto) , Lymphocytes (%) ( Auto) , Monocytes (%) (Auto) , Eosinophils (%) (Auto) , Basophils (%) (Auto) , Differential Total Cells Counted 100, Neutrophils % (Manual) 50, Lymphocytes % ( Manual) 39, Monocytes % (Manual) 11H, Eosinophils % (Manual) 0, Basophils % ( Manual) 0, Band Neutrophils 0, Platelet Estimate Adequate, Platelet Morphology Normal, Red Blood Cell Morphology , Hypochromasia 1+, Sodium Level 141, Potassium Level 3.5, Chloride Level 106, Carbon Dioxide Level 27, Anion Gap 8, Blood Urea Nitrogen 13, Creatinine 1.0, Estimat Glomerular Filtration Rate , Glucose Level 136H, Calcium Level 8.6, Phosphorus Level 3.1, Magnesium Level 2.3 , Total Bilirubin 0.9, Aspartate Amino Transf (AST/SGOT) 17, Alanine Aminotransferase (ALT/SGPT) 31, Alkaline Phosphatase 54, Total Protein 6.6, Albumin 3.1L, Globulin 3.5, Albumin/Globulin Ratio 0.9L Michelle Jerry MD Apr 14, 2018 18:30
--- NOTE | 2018-04-16 08:48 | Discharge Summary ---
Discharge Summary Discharge Summary _ DATE OF ADMISSION:04/09/2018 DATE OF DISCHARGE: 04/14/2018 REASON FOR ADMISSION: 72 years old female with past medical history significant for asthma, paroxysmal atrial flutter, hypertension, high cholesterol, presented to emergency room with cough and difficulty breathing. Patient recently was recently tapered off steroids. Patient reported subjective chills. Patient reported productive cough with intermittent yellow sputum production. She also reported mild sore throat. She reported chest discomfort while coughing but denied chest pain without cough. She denied smoking Upon evaluation in emergency room patient was afebrile, pulse oximetry was stable on room air. Blood pressure was elevated 176/103. Urinalysis revealed on no evidence of urinary tract infection. WBC 22.7 , stable hemoglobin and hematocrit. Potassium 3.1, otherwise stable renal parameters and electrolytes. Troponin negative. Chest x-ray was unremarkable. Patient was admitted with diagnosis of cough, likely asthma exacerbation , possible bronchitis, leukocytosis, hypertension hypercholesterolemia CONSULTANTS: pulmonary Dr. Rosalino CASTRO specialist [facility] psychiatrist [facility] COURSE: Patient admitted to Med-Surg floor. Supplemental oxygen provided as needed to keep pulse oximetry above 92%. Hand held nebulizing treatment with bronchodilator provided along with chest physical therapy. Antitussive provided as needed. Patient started on empiric antibiotics. Infectious disease doctor closely followed. Chest x-ray revealed no evidence of pneumonia. Patient was on IV steroids which tapered to oral prior to discharge. Blood culture were negative Electrolytes were closely monitored and corrected as needed ,specifically potassium. Prior to discharge potassium 3.5 Blood pressure was managed with Cardizem. Blood pressure stabilized. Aspirin , Plavix and statin were resumed. DVT prophylaxis provided. Patient clinically improved. Pulse oximetry stable in room air. S Cough subsiding. Leukocytosis trending down. Patient was stable for discharge home with outpatient follow-up with the primary care provide FINAL DIAGNOSES: Acute asthma exacerbation Likely acute bronchitis Leukocytosis Hypokalemia Hypertension Paroxysmal atrial fibrillation Hyperlipidemia DISCHARGE MEDICATIONS: See Medication Reconciliation list. DISCHARGE INSTRUCTIONS: Patient was discharged home. Follow up with primary care provider as outpatient in one week I have been assigned to dictate discharge summary for this account. I was not involved in the patient's management. Yari Mcpherson NP Apr 16, 2018 08:48
== END 2018-04-14 13:52 | disposition home or self-care (01) | DRG 872 ==
LOC: EMR 20:55 → 2E 21:55 → EDBEDREQ 22:09 → 4E 04-11 20:15
DX: A41.9 Sepsis, unspecified organism (principal); J45.901 Unspecified asthma with (acute) exacerbation; J20.9 Acute bronchitis, unspecified; I48.0 Paroxysmal atrial fibrillation; I10 Essential (primary) hypertension; E78.00 Pure hypercholesterolemia, unspecified; I67.9 Cerebrovascular disease, unspecified; Z79.02 Long term (current) use of antithrombotics/antiplatelets; E87.6 Hypokalemia; D72.829 Elevated white blood cell count, unspecified; E78.5 Hyperlipidemia, unspecified; F41.9 Anxiety disorder, unspecified; Z79.82 Long term (current) use of aspirin
CPT/HCPCS: 36415; 71045; 80048; 80053; 80069; 81003; 83735; 84100; 84484; 85007; 85025; 87040; 93005; 94640; 94664; 99285; J7620; J8499

== ENCOUNTER 2018-11-08 08:13 | Emergency (ER) | payer MEDICARE ==
[~2018-11-08] VITALS: Ht 171.4 cm; Wt 99.8 kg
[~2018-11-08 08:13] MED LIST changes: +ALBUTEROL SULF8.5 GM INH; +LEVAQUIN500 MG ORAL; +MEDROL4 MG ORAL
--- NOTE | 2018-11-08 08:35 | Emergency Room Report ---
History of Present Illness General Chief Complaint: Lower Extremity Injury Source: Patient, Medical Record Present Illness HPI Patient reports a trip and fall yesterday Patient reports that there was a box in the ground and tripped over it This is last night Patient having pain to the lateral aspect of the ankle Also some top part of the foot Denies any knee pain denies any other pelvic or hip pain denies any chest pain and describes a purely mechanical fall in nature Allergies: Coded Allergies: No Known Allergies (Unverified , 03/21/17) Patient History Past Medical History: see triage record Pertinent Family History: none Last Menstrual Period: menopause Reviewed Nursing Documentation: PMH: Agreed; PSxH: Agreed Nursing Documentation-PMH Past Medical History: No History, Except For Hx Cardiac Problems: Yes - paroxysmal a-flutter Hx Hypertension: Yes - High cholesterol Hx Asthma: Yes Hx COPD: No Hx Diabetes: No Hx Cancer: No Hx Gastrointestinal Problems: No Hx Dialysis: No Hx Neurological Problems: No Hx Cerebrovascular Accident: No Hx Seizures: No Review of Systems All Other Systems: negative except mentioned in HPI Physical Exam Vital Signs Date Time Temp Pulse Resp B/P (MAP) Pulse Ox O2 Delivery O2 Flow Rate FiO2 11/08/18 08:16 97.5 88 16 143/85 98 Room Air Sp02 EP Interpretation: reviewed, normal General Appearance: well appearing, no apparent distress Head: normocephalic, atraumatic Eyes: bilateral eye PERRL, bilateral eye EOMI ENT: normal pharynx Neck: full range of motion, supple Respiratory: lungs clear, no retraction Cardiovascular #1: regular rate, rhythm Musculoskeletal: other - Minimal swelling left ankle, some tenderness on palpation neurovascularly intact Skin: normal color, no rash Lymphatic: no adenopathy Procedures Splinting Splinting : Consent: Verbal Location: Left ankle Pre-Made Type: aircast Splint: sugar-tong Pre-Proc Neuro Vasc Exam: normal Post-Proc Neuro Vasc Exam: normal Patient Tolerated: Well Complications: None Medical Decision Making Diagnostic Impression: Primary Impression: Ankle sprain ER Course Given the patient's history exam and presentation X-ray imaging was obtained Patient reveals a previous old fifth metacarpal fracture however no acute pathology is seen Given the patient's discomfort she was provided with splint and disposition for close outpatient follow-up Other X-Ray Diagnostic Results Other X-Ray Diagnostic Results #1: X-Ray ordered: Left foot # of Views/Limited Vs Complete: 3 View Indication: Pain EP Interpretation: Yes Interpretation: no dislocation, no soft tissue swelling, no fractures Impression: No acute disease Electronically Signed by: Nieves Major DO Other X-Ray Diagnostic Results #2: X-Ray ordered: left ankle # of Views/Limited Vs Complete: 3 View Indication: Pain EP Interpretation: Yes Interpretation: no dislocation, no fractures, other - Soft tissue swelling Impression: Other - Soft tissue swelling Last Vital Signs Date Time Temp Pulse Resp B/P (MAP) Pulse Ox O2 Delivery O2 Flow Rate FiO2 11/08/18 08:16 97.5 88 16 143/85 98 Room Air Status: improved Disposition: HOME, SELF-CARE Condition: Improved Additional Instructions: Patient is provided with the discharge instructions notified to follow up with primary doctor in the next 2-3 days otherwise return to the er with any worsening symptoms. Please note that this report is being documented using [employer] technology. This can lead to erroneous entry secondary to incorrect interpretation by the dictating instrument. Nieves Major DO Nov 08, 2018 08:35
[2018-11-08 09:14] VITALS: BP 143/85
--- NOTE | 2018-11-08 10:08 | Diagnostic Imaging Report ---
Indication: Trauma, pain status post fall Technique: 3 views left foot Comparison: none Findings: There is old healed fracture deformity of the fifth metatarsal. No acute fractures. No dislocations. The joint spaces are preserved. Impression: No acute process
--- NOTE | 2018-11-08 10:09 | Diagnostic Imaging Report ---
Indication: Trauma, pain, status post fall Technique: 3 views of the left ankle Comparison: none Findings: No acute fractures. No dislocations. The joint spaces are preserved Impression: Negative
== END 2018-11-08 09:15 | disposition home or self-care (01) ==
LOC: EMR 09:00
DX: S93.402A Sprain of unspecified ligament of left ankle, initial encounter (principal); W01.0XXA Fall on same level from slipping, tripping and stumbling without subsequent striking against object, initial encounter; Y92.89 Other specified places as the place of occurrence of the external cause; J45.909 Unspecified asthma, uncomplicated
CPT/HCPCS: 29515; 99283

== ENCOUNTER 2018-12-20 06:45 | Emergency (ER) | payer MEDICARE ==
[~2018-12-20] VITALS: Ht 172.7 cm; Wt 96.6 kg
--- NOTE | 2018-12-20 07:00 | NUR ---
ED Nurse Note: Pt walked into ED c/o allergy like-syndrome for 4 days. patient is c/o coughing, runny nose, and nasal congestion. a/o x4.
[2018-12-20 07:03] VITALS: BP 180/104
--- NOTE | 2018-12-20 07:12 | Emergency Room Report ---
History of Present Illness General Chief Complaint: Allergic Reaction Source: Patient Present Illness HPI Patient presents with complaints of cough and congestion Reports ongoing for the past 3 days Denies any headache denies any chest pain Denies any back or flank pain denies any vomiting or diarrhea patient reports that she has underlying allergies a flareup sometimes as well She feels that she has some underlying allergy with itchy throat and runny nose Denies any posterior neck pain or photophobia denies any abdominal pain denies any fevers Allergies: Uncoded Allergies: POLLEN (Allergy, Unknown, 12/20/18) Patient History Past Medical History: see triage record Pertinent Family History: none Last Menstrual Period: stop 30 years ago Now: No Reviewed Nursing Documentation: PMH: Agreed; PSxH: Agreed Nursing Documentation-PMH Hx Cardiac Problems: Yes - paroxysmal a-flutter Hx Hypertension: Yes - High cholesterol Hx Asthma: Yes Hx COPD: No Hx Diabetes: No Hx Cancer: No Hx Gastrointestinal Problems: No Hx Dialysis: No Hx Neurological Problems: No Hx Cerebrovascular Accident: No Hx Seizures: No Review of Systems All Other Systems: negative except mentioned in HPI Physical Exam Vital Signs Date Time Temp Pulse Resp B/P (MAP) Pulse Ox O2 Delivery O2 Flow Rate FiO2 12/20/18 06:52 97.9 87 20 180/104 98 Sp02 EP Interpretation: reviewed, normal General Appearance: well appearing, no apparent distress Head: normocephalic, atraumatic Eyes: bilateral eye PERRL, bilateral eye EOMI ENT: hearing grossly normal, TMs + canals normal, uvula midline, pharyngeal erythema, other - Nasal congestion Neck: full range of motion, supple, no meningismus, no bony tend Respiratory: lungs clear, normal breath sounds, no rhonchi, no respiratory distress, no retraction, no accessory muscle use Cardiovascular #1: normal peripheral pulses, regular rate, rhythm, no edema, no gallop, no JVD, no murmur Gastrointestinal: normal bowel sounds, non tender, soft, no mass, no organomegaly, non-distended, no guarding, no hernia, no pulsatile mass, no rebound Genitourinary: no CVA tenderness Musculoskeletal: normal inspection Neurologic: oriented x3, responsive, truck unloader III-XII nml as tested, motor strength/ tone normal, sensory intact Psychiatric: mood/affect normal Skin: normal color, no rash, warm/dry, palpation normal Lymphatic: normal inspection, no adenopathy Medical Decision Making Diagnostic Impression: Primary Impression: Upper respiratory infection ER Course Given the patient's history and presentation X-ray imaging was obtained Other differentials such as cardiac, cardiopulmonary, infectious pathology entertained Patient reports that she had taken her blood pressure medicine this morning Therefore she was allowed to rest and repeat blood pressure shows 166 systolic which is much improved x-ray imaging does not show any acute disease Given the clear rhinorrhea given her upper respiratory symptoms Findings consistent with flu symptoms And patient will have initial conservative outpatient trial Chest X-Ray Diagnostic Results Chest X-Ray Diagnostic Results : Chest X-Ray Ordered: Yes Indication: Shortness of Breath EP Interpretation: Yes Interpretation: no consolidation, no effusion, no pneumothorax Impression: No acute disease Electronically Signed by: Nieves Major DO Last Vital Signs Date Time Temp Pulse Resp B/P (MAP) Pulse Ox O2 Delivery O2 Flow Rate FiO2 12/20/18 07:03 87 20 12/20/18 07:03 97.9 180/104 98 Status: improved Disposition: HOME, SELF-CARE Condition: Improved Scripts Promethazine Hcl (PROMETHAZINE HCL*) 6.25 Mg/5 Ml Syrup 5 ML ORAL Q8H for 5 Days, #120 ML 0 Refills Prov: Nieves Major DO 12/20/18 Oseltamivir Phosphate (Tamiflu) 75 Mg Capsule 75 MG ORAL TWICE A DAY for 5 Days, #10 CAP Prov: Nieves Major DO 12/20/18 Promethazine Hcl (PROMETHAZINE HCL*) 6.25 Mg/5 Ml Syrup 5 ML ORAL Q8H for 5 Days, #120 ML 0 Refills Prov: Nieves Major DO 12/20/18 Oseltamivir Phosphate (Tamiflu) 75 Mg Capsule 75 MG ORAL TWICE A DAY for 5 Days, #10 CAP Prov: Nieves Major DO 12/20/18 Additional Instructions: Patient is provided with the discharge instructions notified to follow up with primary doctor in the next 2-3 days otherwise return to the er with any worsening symptoms. Please note that this report is being documented using [employer] technology. This can lead to erroneous entry secondary to incorrect interpretation by the dictating instrument. Nieves Major DO Dec 20, 2018 07:12
[2018-12-20] MEDS ORDERED: Promethazine Plain 6.25mg/5ml ORAL ONE (07:45)
[2018-12-20] MEDS ORDERED: Promethazine Plain 6.25mg/5ml ONE (07:45)
--- NOTE | 2018-12-20 08:54 | NUR ---
ED Nurse Note: Dr. Major made aware that patient's BP is 168/101 at this time.
[2018-12-20] MEDS ORDERED: PROMETHAZI6.25 MG/1 ORAL ×2 (08:56→09:22)
[2018-12-20] MEDS ORDERED: TAMIFLU75 MG ORAL ×2 (08:56→09:22)
--- NOTE | 2018-12-20 09:04 | NUR ---
ER DISCHARGE NOTE: Patient is cleared to be discharged per ERMD, pt is aox4, on room air, with stable vital signs. pt was given dc and prescription instructions, pt was able to verbalize understanding, pt id band removed without complications. pt is able to ambulate with steady gait. pt took all belongings.
[2018-12-20 09:09] VITALS: BP 168/101
--- NOTE | 2018-12-20 09:38 | Diagnostic Imaging Report ---
Indication: Cough for 3 days Technique: One view of the chest Comparison: 04/09/2018 Findings: The lungs and pleural spaces are clear. The heart is borderline enlarged. The aorta is tortuous Impression: Negative
== END 2018-12-20 09:11 | disposition home or self-care (01) ==
LOC: EMR 07:21
DX: J06.9 Acute upper respiratory infection, unspecified (principal); I10 Essential (primary) hypertension; J45.909 Unspecified asthma, uncomplicated
CPT/HCPCS: 71045; 99283

== ENCOUNTER 2019-02-08 11:43 | Emergency (ER) | payer MEDICARE ==
[~2019-02-08] VITALS: Ht 172.7 cm; Wt 95.3 kg
[~2019-02-08 11:43] MED LIST changes: +PROMETHAZI6.25 MG/1 ORAL; +TAMIFLU75 MG ORAL
[2019-02-08 12:40] VITALS: BP_SYST 111; BP_SYST 116; BP_SYST 99; BP_DIAS 69; BP_DIAS 72; BP_DIAS 74; BP_DIAS 78
[2019-02-08] MEDS ORDERED: Meclizine 25mg tab ORAL ONE (12:45)
[2019-02-08] MEDS ORDERED: MECLIZINE HCL25 MG ORAL (13:05)
[2019-02-08 13:15] VITALS: BP 111/72
--- NOTE | 2019-02-08 21:49 | Emergency Room Report ---
History of Present Illness General Chief Complaint: Dizziness Source: Patient Present Illness HPI The patient is a 73-year-old female presenting for dizziness. She states that the symptoms feel more like lightheadedness. This occurs when the patient changes position from sitting to standing. Symptoms persisted for approximately 30 seconds and then improved. She was also started on a new medication which she believes is hydrochlorothiazide last week. This was for leg swelling which improved. She denies other symptoms including nausea, vomiting, fever, chills, headache, blurred vision Allergies: Uncoded Allergies: POLLEN (Allergy, Unknown, 12/20/18) Patient History Past Medical History: see triage record Pertinent Family History: none Last Menstrual Period: None Now: No Reviewed Nursing Documentation: PMH: Agreed; PSxH: Agreed Nursing Documentation-PMH Hx Cardiac Problems: No Hx Hypertension: Yes - High cholesterol Hx Asthma: Yes Hx COPD: No Hx Diabetes: No Hx Cancer: No Hx Gastrointestinal Problems: No Hx Dialysis: No Hx Neurological Problems: No Hx Cerebrovascular Accident: No Hx Seizures: No Review of Systems All Other Systems: negative except mentioned in HPI Physical Exam Vital Signs Date Time Temp Pulse Resp B/P (MAP) Pulse Ox O2 Delivery O2 Flow Rate FiO2 02/08/19 11:55 98.2 82 18 93 Room Air 02/08/19 12:40 111/69 Sp02 EP Interpretation: reviewed, normal General Appearance: no apparent distress, alert, GCS 15, non-toxic Head: normocephalic, atraumatic Eyes: bilateral eye normal inspection, bilateral eye PERRL ENT: hearing grossly normal, normal pharynx, no angioedema, normal voice Neck: full range of motion, supple/symm/no masses Respiratory: chest non-tender, lungs clear, normal breath sounds, speaking full sentences Cardiovascular #1: regular rate, rhythm, no edema Musculoskeletal: back normal, gait/station normal, normal range of motion, non- tender Neurologic: alert, oriented x3, responsive, motor strength/tone normal, sensory intact, speech normal Psychiatric: judgement/insight normal, memory normal, mood/affect normal, no suicidal/homicidal ideation Skin: normal color, no rash, warm/dry, well hydrated Medical Decision Making PA Attestation Dr. Major is my supervising physician. Patient management was discussed with my supervising physician Diagnostic Impression: Primary Impression: Dizziness Additional Impression: Orthostatic hypotension ER Course The patient is a 73-year-old female presenting for dizziness. Differential diagnosis considered but not limited to: BPPV, positional hypotension, dehydration, CVA, among others PE: NAD. BP stable PERRL. EOMI CN II-XII intact RRR Lungs CTA bilat Symptoms illicited when patient asked to stand. orthostatic BP assessment shows significant change with position Symptoms improve with slow movement. Pt will F/u with PCP. ER precautions given Last Vital Signs Date Time Temp Pulse Resp B/P (MAP) Pulse Ox O2 Delivery O2 Flow Rate FiO2 02/08/19 13:15 98.2 78 18 111/72 93 Room Air Status: improved Disposition: HOME, SELF-CARE Condition: Improved Scripts Meclizine Hcl* (MECLIZINE*) 25 Mg Tablet 25 MG ORAL THREE TIMES A DAY, #15 TAB Prov: HERBERT ROBINS 02/08/19 Referrals: NON PHYSICIAN (PCP) Patient Instructions: Dizziness Additional Instructions: I discussed my findings with the patient. All questions and concerns have been answered. Treatment and medication compliance have been addressed. I advised the patient that they need to follow up with primary doctor in 3-5 days. Return to ED if symptoms worsen, new symptoms arise, or if needed for any reason. Patient verbalized understanding of discharge instructions. Please call your primary doctor as soon as possible and discuss your medications. HERBERT ROBINS February 08, 2019 21:49
== END 2019-02-08 13:15 | disposition home or self-care (01) ==
LOC: EMR 12:32
DX: I95.1 Orthostatic hypotension (principal); E78.00 Pure hypercholesterolemia, unspecified; J45.909 Unspecified asthma, uncomplicated; Z91.048 Other nonmedicinal substance allergy status
CPT/HCPCS: 99282

== ENCOUNTER 2019-07-12 15:11 | Emergency (ER) | payer MEDICARE ==
[~2019-07-12] VITALS: Ht 170.2 cm; Wt 96.6 kg
--- NOTE | 2019-07-12 15:30 | NUR ---
ED Nurse Note: Patient taken from [facility] to treatment room. No complaints of pain. Patient states she feels a lack of energy and is unsure why. Urine sample provided.
[2019-07-12 16:24] VITALS: BP_SYST 155; BP_SYST 157; BP_SYST 160; BP_DIAS 89; BP_DIAS 96
[2019-07-12 16:27] VITALS: BP_SYST 155; BP_SYST 157; BP_SYST 160; BP_DIAS 89; BP_DIAS 96
[2019-07-12 16:31] LABS: BASOPHILS % (AUTO) 1.7 % (0.0-2.0); EOSINOPHILS % (AUTO) 3.8 % (0.0-3.0); HEMATOCRIT 43.4 % (37.0-47.0); HEMOGLOBIN 14.6 G/DL (12.0-16.0); LYMPHOCYTES % (AUTO) 39.9 % (20.0-45.0); MEAN CORPUSCULAR VOLUME 91 FL (80-99); MONOCYTES % (AUTO) 4.7 % (1.0-10.0); PLATELET COUNT 284 K/UL (150-450); RED BLOOD COUNT 4.77 M/UL (4.20-5.40); WHITE BLOOD COUNT 10.4 K/UL (4.8-10.8)
--- NOTE | 2019-07-12 16:33 | NUR ---
ED Nurse Note: Labs, EKG and xray have been obtained. [place] provided.
[2019-07-12 16:42] LABS: APPEARANCE,URINE CLEAR; BILIRUBIN, URINE NEGATIVE (NEGATIVE); COLOR,URINE PALE YELLOW; GLUCOSE, URINE (UA) NEGATIVE (NEGATIVE); KETONES,URINE NEGATIVE (NEGATIVE); LEUKOCYTE ESTERASE ,URINE NEGATIVE (NEGATIVE); NITRITE,URINE NEGATIVE (NEGATIVE); PH,URINE 7 (4.5-8.0); PROTEIN,URINE NEGATIVE (NEGATIVE); UROBILINOGEN,URINE NORMAL MG/DL (0.0-1.0)
[2019-07-12 16:53] LABS: ANION GAP 4 mmol/L (5-15); BLOOD UREA NITROGEN 16 mg/dL (7-18); CALCIUM 9.4 MG/DL (8.5-10.1); CARBON DIOXIDE 31 MMOL/L (21-32); CHLORIDE 109 MMOL/L (98-107); CREATININE 0.9 MG/DL (0.55-1.30); POTASSIUM 3.4 MMOL/L (3.5-5.1); SODIUM 144 MMOL/L (136-145)
[2019-07-12 17:07] LABS: ALANINE AMINOTRANSFERASE 28 U/L (12-78); ALBUMIN 3.9 G/DL (3.4-5.0); ALBUMIN/GLOBULIN RATIO 1.3 (1.0-2.7); ALKALINE PHOSPHATASE 75 U/L (46-116); ASPARTATE AMINO TRANSFERASE 17 U/L (15-37); BILIRUBIN,TOTAL 1.3 MG/DL (0.2-1.0); CKMB 1.4 NG/ML (0.0-3.6); CREATINE KINASE 90 U/L (26-308)
[2019-07-12 17:11] LABS: BILIRUBIN,DIRECT 0.2 MG/DL (0.0-0.3)
[2019-07-12 18:18] VITALS: BP 154/97
--- NOTE | 2019-07-12 18:18 | NUR ---
ER DISCHARGE NOTE: Patient is cleared to be discharged per ERMD, pt is aox4, on room air, with stable vital signs. pt was given dc instructions, pt was able to verbalize understanding, pt id band and iv site removed without complications. pt is able to ambulate with steady gait. pt took all belongings.
--- NOTE | 2019-07-12 18:48 | Emergency Room Report ---
History of Present Illness General Chief Complaint: Upper Respiratory Illness Source: Patient, Medical Record (Erendira Sauceda) Present Illness HPI 74-year-old female accompanied by daughter complaining of dizziness and feeling tired since yesterday. Patient states that symptoms worse with change in position and walking. Denies sick contacts or recent travel. Denies chest pain , shortness of breath, leg pain, headache, syncope, URI symptoms. (Erendira Sauceda) Allergies: Uncoded Allergies: POLLEN (Allergy, Unknown, 12/20/18) Patient History Past Medical History: HTN, other - hyperlipidemia Social History: Denies: smoking, alcohol use, drug use Last Menstrual Period: N/A Now: No (Erendira Sauceda) Nursing Documentation-PMH Hx Cardiac Problems: No Hx Hypertension: Yes - High cholesterol Hx Asthma: Yes Hx COPD: No Hx Diabetes: No Hx Cancer: No Hx Gastrointestinal Problems: No Hx Dialysis: No Hx Neurological Problems: No Hx Cerebrovascular Accident: No Hx Seizures: No (Erendira Sauceda) Review of Systems All Other Systems: negative except mentioned in HPI (Erendira Sauceda) Physical Exam Vital Signs Date Time Temp Pulse Resp B/P (MAP) Pulse Ox O2 Delivery O2 Flow Rate FiO2 07/12/19 15:22 97.9 91 18 168/94 (118) 95 Room Air Sp02 EP Interpretation: reviewed General Appearance: no apparent distress, alert, GCS 15, non-toxic ENT: hearing grossly normal, normal pharynx, no angioedema, normal voice Respiratory: chest non-tender, lungs clear, normal breath sounds, speaking full sentences Cardiovascular #1: regular rate, rhythm, no edema Gastrointestinal: normal bowel sounds, non tender, soft, non-distended, no guarding, no rebound Musculoskeletal: normal inspection, gait/station normal, normal range of motion - no LE swelling, no calf tenderness Neurologic: alert, oriented x3, responsive, motor strength/tone normal, sensory intact, speech normal Skin: no rash, warm/dry (Erendira Sauceda) Medical Decision Making PA Attestation This patient was seen under the direct supervision of Dr. García, who directed all aspects of care and diagnostic interpretation. (Erendira Sauceda) Diagnostic Impression: Primary Impression: Dizziness ER Course ED course HPI: 74-year-old female accompanied by daughter complaining of dizziness and feeling tired since yesterday. Patient states that symptoms worse with change in position and walking. Denies sick contacts or recent travel. Denies chest pain , shortness of breath, leg pain, headache, syncope, URI symptoms. Ddx: benign positional vertigo, labyrinthitis, medication, dehydration, electrolyte imbalance, Meniere's disease, and others. HPI & PE consistent with: Dizziness Orders/ Interventions: Case discussed extensively with Dr. García, who agreed with ER course and disposition. Lab work-up (CBC, CMP, cardiac workup, UA) grossly unremarkable. Chest X-ray read by ER attending Dr. García shows no evidence of acute cardiopulmonary process. EKG without acute changes. Patient ambulatory without assistance to restroom. Disposition: At this time pt. is stable for d/c to home. Will provide printed patient care instructions, and any necessary prescriptions. Care plan and follow up instructions have been discussed with the patient prior to discharge. Please note that this Emergency Department Report was dictated using [employer] clerk technology software, occasionally this can lead to erroneous entry secondary to interpretation by the dictation equipment. Laboratory Tests Test 07/12/19 15:05 07/12/19 16:16 Urine Color Pale yellow Urine Appearance Clear Urine pH 7 (4.5-8.0) Urine Specific [place] 1.005 (1.005-1.035) Urine Protein Negative (NEGATIVE) Urine Glucose (UA) Negative (NEGATIVE) Urine Ketones Negative (NEGATIVE) Urine Blood Negative (NEGATIVE) Urine Nitrite Negative (NEGATIVE) Urine Bilirubin Negative (NEGATIVE) Urine Urobilinogen Normal MG/DL (0.0-1.0) Urine Leukocyte Esterase Negative (NEGATIVE) Urine RBC 0-2 /HPF (0 - 2) Urine WBC 0-2 /HPF (0 - 2) Urine Squamous Epithelial Cells Occasional /LPF Urine Bacteria None /HPF (NONE) White Blood Count 10.4 K/UL (4.8-10.8) Red Blood Count 4.77 M/UL (4.20-5.40) Hemoglobin 14.6 G/DL (12.0-16.0) Hematocrit 43.4 % (37.0-47.0) Mean Corpuscular Volume 91 FL (80-99) Mean Corpuscular Hemoglobin 30.5 PG (27.0-31.0) Mean Corpuscular Hemoglobin Concent 33.6 G/DL (32.0-36.0) Red Cell Distribution Width 12.0 % (11.6-14.8) Platelet Count 284 K/UL (150-450) Mean Platelet Volume 6.8 FL (6.5-10.1) Neutrophils (%) (Auto) 50.0 % (45.0-75.0) Lymphocytes (%) (Auto) 39.9 % (20.0-45.0) Monocytes (%) (Auto) 4.7 % (1.0-10.0) Eosinophils (%) (Auto) 3.8 % (0.0-3.0) H Basophils (%) (Auto) 1.7 % (0.0-2.0) Sodium Level 144 MMOL/L (136-145) Potassium Level 3.4 MMOL/L (3.5-5.1) L Chloride Level 109 MMOL/L (98-107) H Carbon Dioxide Level 31 MMOL/L (21-32) Anion Gap 4 mmol/L (5-15) L Blood Urea Nitrogen 16 mg/dL (7-18) Creatinine 0.9 MG/DL (0.55-1.30) Estimate Glomerular Filtration Rate mL/min (>60) Glucose Level 83 MG/DL (74-106) Calcium Level 9.4 MG/DL (8.5-10.1) Total Bilirubin 1.3 MG/DL (0.2-1.0) H Direct Bilirubin 0.2 MG/DL (0.0-0.3) Aspartate Amino Transferase (AST) 17 U/L (15-37) Alanine Aminotransferase (ALT) 28 U/L (12-78) Alkaline Phosphatase 75 U/L (46-116) Total Creatine Kinase 90 U/L (26-308) Creatine Kinase MB 1.4 NG/ML (0.0-3.6) Creatine Kinase MB Relative Index 1.5 Troponin I 0.000 ng/mL (0.000-0.056) Pro-B-Type Natriuretic Peptide 63 pg/mL (0-125) Total Protein 6.8 G/DL (6.4-8.2) Albumin 3.9 G/DL (3.4-5.0) Globulin 2.9 g/dL Albumin/Globulin Ratio 1.3 (1.0-2.7) (Erendira Sauceda) EKG Diagnostic Results EKG Time: 16:03 EP Interpretation: by Dr. García Rate: normal Rhythm: NSR ST Segments: no acute changes Other Impression LVH (Erendira Sauceda) Chest X-Ray Diagnostic Results Chest X-Ray Diagnostic Results : Chest X-Ray Ordered: Yes # of Views/Limited/Complete: 1 View EP Interpretation: Yes PA Xray: Interpretation reviewed, by supervising MD Interpretation: no consolidation, no effusion, no pneumothorax, no acute cardiopulmonary disease Impression: No acute disease Electronically Signed by: Erendira Sauceda PA-C (Erendira Sauceda) Chest X-Ray Diagnostic Results : Electronically Signed by: Jareth Bell documentation of Xray reviewed by me and is accurate, Satnam García MD (Satnam García MD) Last Vital Signs Date Time Temp Pulse Resp B/P (MAP) Pulse Ox O2 Delivery O2 Flow Rate FiO2 07/12/19 18:18 97.6 84 16 154/97 98 Room Air Status: improved (Erendira Sauceda) Disposition: HOME, SELF-CARE Condition: Stable Referrals: NON PHYSICIAN (PCP) Patient Instructions: Dizziness, [id number] Additional Instructions: Followup with PCP in 2 days or return to ER if worsening symptoms, new symptoms or sudden change in condition Erendira Sauceda Jul 12, 2019 18:48 Satnam García MD Jul 13, 2019 03:03
--- NOTE | 2019-07-12 19:16 | Diagnostic Imaging Report ---
EXAM: XR Chest, 1 View CLINICAL HISTORY: DIZZY TECHNIQUE: Frontal view of the chest. COMPARISON: No relevant prior studies available. FINDINGS: Lungs: Unremarkable. No consolidation. Pleural space: Unremarkable. No pneumothorax. Heart: Heart size mildly enlarged, likely projectional. Mediastinum: Unremarkable. Bones joints: Unremarkable. IMPRESSION: No acute cardiopulmonary abnormality.
--- NOTE | 2019-07-15 14:21 | Cardiology Report ---
APPROVED REPORT EKG Measurement Heart [id number] DC [id number] Normal sinus rhythm Moderate voltage criteria for LVH, may be normal variant Borderline ECG
== END 2019-07-12 18:20 | disposition home or self-care (01) ==
LOC: EMR 16:00
DX: R42 Dizziness and giddiness (principal); E78.00 Pure hypercholesterolemia, unspecified; J45.909 Unspecified asthma, uncomplicated; Z91.048 Other nonmedicinal substance allergy status
CPT/HCPCS: 36415; 71045; 80053; 81001; 82248; 82550; 82553; 83880; 84484; 85025; 93005; 99284

== ENCOUNTER 2019-07-24 09:31 | Emergency (ER) | payer MEDICARE ==
[~2019-07-24] VITALS: Ht 170.2 cm; Wt 96.6 kg
[2019-07-24] MEDS ORDERED: DELTASONE20 MG PO (09:39)
[2019-07-24] MEDS ORDERED: MELOXICAM15 MG PO (09:39)
[2019-07-24 09:45] VITALS: BP 138/81
--- NOTE | 2019-07-24 09:45 | NUR ---
ED Nurse Note:pt. came with c/o finding lump on her right arm, elbow area 2 days ago, no drainage reported
--- NOTE | 2019-07-24 09:46 | NUR ---
Sejal rogers in EDM - 07/24/19 at 1004 by JO-ANN ED Nurse Note:pt. came from home with lump under right arm for 2 days no drainage noted
[2019-07-24] MEDS ORDERED: VOLTAREN100 G1 TP (10:19)
--- NOTE | 2019-07-24 10:25 | NUR ---
ER DISCHARGE NOTE: Patient is cleared to be discharged per ERMD, pt is aox4, on room air, with stable vital signs. pt was given dc and prescription instructions, pt was able to verbalize understanding, pt is able to ambulate with steady gait. pt took all belongings.
--- NOTE | 2019-07-24 11:02 | Emergency Room Report ---
History of Present Illness General Chief Complaint: Skin Rash/Abscess Source: Patient Present Illness HPI She is a 74-year-old female presented after increased right upper extremity discomfort. Patient had noticed a small area of swelling to the right upper extremity distal to her elbow. This is been present for 2 days. She reports having some pain with movement. She denies any other locations of injury or discomfort at this time. She does have prior history of hypertension. She denies any radiation. Allergies: Uncoded Allergies: POLLEN (Allergy, Unknown, 12/20/18) Patient History Past Medical History: see triage record Last Menstrual Period: n/a Reviewed Nursing Documentation: PMH: Agreed; PSxH: Agreed Nursing Documentation-PMH Past Medical History: No History, Except For Hx Cardiac Problems: No Hx Hypertension: Yes - High cholesterol Hx Asthma: Yes Hx COPD: No Hx Diabetes: No Hx Cancer: No Hx Gastrointestinal Problems: No Hx Dialysis: No Hx Neurological Problems: No Hx Cerebrovascular Accident: No Hx Seizures: No Review of Systems All Other Systems: negative except mentioned in HPI Physical Exam Vital Signs Date Time Temp Pulse Resp B/P (MAP) Pulse Ox O2 Delivery O2 Flow Rate FiO2 07/24/19 09:33 97.9 82 18 138/81 (100) 98 Room Air General Appearance: well appearing, no apparent distress, alert, GCS 15, non- toxic Head: normocephalic, atraumatic ENT: hearing grossly normal, normal voice Neck: full range of motion, supple Respiratory: no respiratory distress, speaking full sentences Cardiovascular #1: normal inspection, no edema Gastrointestinal: normal inspection, normal bowel sounds, non tender, soft Musculoskeletal: normal inspection, no calf tenderness Neurologic: normal inspection, alert, oriented x3, responsive, head mechanic III-XII nml as tested, motor strength/tone normal, normal gait Psychiatric: mood/affect normal Skin: no rash Medical Decision Making Diagnostic Impression: Primary Impression: Skin lesion of right arm ER Course Patient presented for a skin lesion of the right upper extremity. Differential diagnosis included but was not limited to lipoma, tumor, foreign body, abscess among others. Patient was noted to have lesion to the right upper extremity which does not appear to be warm or swollen. There does not appear to be any drainable fluid collection on bedside ultrasound. patient is advised to follow- up with orthopedic surgery for definitive management of the lesion. This does not appear to be infected. Patient was advised to follow-up with primary care physician for referral. Last Vital Signs Date Time Temp Pulse Resp B/P (MAP) Pulse Ox O2 Delivery O2 Flow Rate FiO2 07/24/19 10:31 97.9 78 18 138/81 98 Room Air Status: improved Disposition: HOME, SELF-CARE Condition: Stable Scripts Diclofenac Sodium (VOLTAREN) 100 Gm Gel..gram. 5 GM TP DAILY for pain, #100 GM Prov: Konstantin Lang MD 07/24/19 Referrals: NON PHYSICIAN (PCP) Patient Instructions: Medical Screening Exam Additional Instructions: Follow up with your primary care physician for orthopedic referal for further evaluation of right upper extremity lesion. Return if worse pain or any fever or other concerns. Konstantin Lang MD Jul 24, 2019 11:02
== END 2019-07-24 10:30 | disposition home or self-care (01) ==
LOC: EMR 10:25
DX: L98.9 Disorder of the skin and subcutaneous tissue, unspecified (principal); E78.00 Pure hypercholesterolemia, unspecified; J45.909 Unspecified asthma, uncomplicated; Z91.048 Other nonmedicinal substance allergy status; I10 Essential (primary) hypertension
CPT/HCPCS: 99282

== ENCOUNTER 2019-08-11 19:25 | Emergency (ER) | payer MEDICARE ==
[~2019-08-11] VITALS: Ht 170.2 cm; Wt 96.6 kg
[~2019-08-11 19:25] MED LIST changes: +DELTASONE20 MG PO; +MELOXICAM15 MG PO; +VOLTAREN100 G1 TP
--- NOTE | 2019-08-11 19:40 | NUR ---
ED Nurse Note: walk-in patient with complaints of dizziness and fatigue all day. ao4. nad. vss. accompanied by family member. pt states history of htn; bp at home 180/90; bp at bedside 150/103. seen by calin. denies pain at the mombent. calm and cooperative.
--- NOTE | 2019-08-11 19:45 | NUR ---
ED Nurse Note: iv access established. blood and urine collected; sent down to lab.
--- NOTE | 2019-08-11 20:09 | NUR ---
ED Nurse Note: flu swab collected; sent down to lab. family member at bedside. iv fluids running as prescribed.
[2019-08-11 20:10] VITALS: BP 150/103
[2019-08-11 20:17] LABS: APPEARANCE,URINE CLEAR; BILIRUBIN, URINE NEGATIVE (NEGATIVE); COLOR,URINE PALE YELLOW; GLUCOSE, URINE (UA) NEGATIVE (NEGATIVE); KETONES,URINE NEGATIVE (NEGATIVE); LEUKOCYTE ESTERASE ,URINE NEGATIVE (NEGATIVE); NITRITE,URINE NEGATIVE (NEGATIVE); PH,URINE 6.5 (4.5-8.0); PROTEIN,URINE NEGATIVE (NEGATIVE); UROBILINOGEN,URINE NORMAL MG/DL (0.0-1.0)
[2019-08-11 20:22] LABS: EOSINOPHILS % (AUTO) 0.6 % (0.0-3.0); HEMATOCRIT 44.6 % (37.0-47.0); HEMOGLOBIN 14.9 G/DL (12.0-16.0); LYMPHOCYTES % (AUTO) 44.9 % (20.0-45.0); MEAN CORPUSCULAR VOLUME 90 FL (80-99); MONOCYTES % (AUTO) 7.4 % (1.0-10.0); NEUTROPHILS % (AUTO) 45.1 % (45.0-75.0); PLATELET COUNT 323 K/UL (150-450); RED BLOOD COUNT 4.94 M/UL (4.20-5.40); RED CELL DISTRIBUTION WIDTH 12.9 % (11.6-14.8); WHITE BLOOD COUNT 13.4 K/UL (4.8-10.8)
[2019-08-11 20:31] LABS: ANION GAP 8 mmol/L (5-15); BLOOD UREA NITROGEN 12 mg/dL (7-18); CALCIUM 9.2 MG/DL (8.5-10.1); CARBON DIOXIDE 30 MMOL/L (21-32); CHLORIDE 108 MMOL/L (98-107); CREATININE 0.9 MG/DL (0.55-1.30); SODIUM 146 MMOL/L (136-145)
[2019-08-11 20:36] LABS: ALANINE AMINOTRANSFERASE 31 U/L (12-78); ALBUMIN 3.7 G/DL (3.4-5.0); ALBUMIN/GLOBULIN RATIO 1.1 (1.0-2.7); ALKALINE PHOSPHATASE 96 U/L (46-116); ASPARTATE AMINO TRANSFERASE 16 U/L (15-37); BILIRUBIN,TOTAL 0.8 MG/DL (0.2-1.0)
[2019-08-11 21:00] VITALS: BP 150/103
--- NOTE | 2019-08-11 21:00 | NUR ---
ER DISCHARGE NOTE: Patient is cleared to be discharged per ERMD, pt is aox4, on room air, with stable vital signs. ACCOMPANIED BY FAMILY MEMBER. pt was given dc and prescription instructions, pt was able to verbalize understanding, pt id band and iv site removed without complications. pt is able to ambulate with steady gait. pt took all belongings.
--- NOTE | 2019-08-11 22:41 | Emergency Room Report ---
History of Present Illness General Chief Complaint: Generalized Weakness Source: Patient Present Illness Allergies: Uncoded Allergies: POLLEN (Allergy, Unknown, 12/20/18) Patient History Last Menstrual Period: na Now: No : 3 Para: 3 Nursing Documentation-PMH Hx Cardiac Problems: No Hx Hypertension: Yes Hx Asthma: Yes Hx COPD: No Hx Diabetes: No Hx Cancer: No Hx Gastrointestinal Problems: No Hx Dialysis: No Hx Neurological Problems: No Hx Cerebrovascular Accident: No Hx Seizures: No Physical Exam Vital Signs Date Time Temp Pulse Resp B/P (MAP) Pulse Ox O2 Delivery O2 Flow Rate FiO2 08/11/19 19:31 97.9 74 17 150/103 (119) 100 Room Air Medical Decision Making Diagnostic Impression: Primary Impression: Dizziness EKG Diagnostic Results Rate: normal Rhythm: NSR ST Segments: no acute changes ASA given to the pt in ED: No Rhythm Strip Diag. Results EP Interpretation: yes Rhythm: NSR, no PVC's, no ectopy Last Vital Signs Date Time Temp Pulse Resp B/P (MAP) Pulse Ox O2 Delivery O2 Flow Rate FiO2 08/11/19 21:00 97.9 73 17 150/103 100 Room Air Disposition: HOME, SELF-CARE Condition: Stable Referrals: NON PHYSICIAN (PCP) [facility] Patient Instructions: Dizziness, [id number] Daniel Menjivar MD Aug 11, 2019 22:41
--- NOTE | 2019-08-12 12:14 | Diagnostic Imaging Report ---
Indication: Dizziness, shortness of breath Technique: One view of the chest Comparison: 07/12/2019 Findings: Lungs and pleural spaces are clear. The heart size is normal. The aorta is tortuous. No significant interim change Impression: No acute process
== END 2019-08-11 21:00 | disposition home or self-care (01) ==
LOC: EMR 21:00
DX: R42 Dizziness and giddiness (principal); Z91.018 Allergy to other foods; I10 Essential (primary) hypertension; J45.909 Unspecified asthma, uncomplicated
CPT/HCPCS: 36415; 71045; 80053; 81003; 85025; 86710; 93005; 99284

== ENCOUNTER 2019-09-16 17:05 | Emergency (ER) | payer MEDICARE ==
[~2019-09-16] VITALS: Ht 170.2 cm; Wt 96.6 kg
[2019-09-16 17:10] VITALS: BP 139/86
--- NOTE | 2019-09-16 17:10 | NUR ---
ED Nurse Note: Pt went to the ED with daughter d/t dizziness started at 1700. Placed on bed. Will continue to monitor.
--- NOTE | 2019-09-16 17:40 | NUR ---
ED Nurse Note: Pt able to ambulate. Obtained urine specimen; sent to labs.
--- NOTE | 2019-09-16 17:49 | Emergency Room Report ---
History of Present Illness General Chief Complaint: Dizziness Source: Patient, Family Member Present Illness HPI Disclaimer: Please note that this report is being documented using [employer] technology. This can lead to erroneous entry secondary to incorrect interpretation by the dictating instrument. HPI: 73-year-old female with history of hypertension hyperlipidemia presents for evaluation of dizziness. Patient states he was in her usual state of health when she had a sudden and profound episode of vertigo noting entire room spinning acutely lasting less than 1 minute. Symptoms occurred approximately 30 minutes ago and EMS was called. There was no fall or head injury. Patient is never experienced similar sensation before. She has had multiple emergency department visits and work-ups for lightheadedness but she states this is different. She denies any recent headaches, changes vision, fever, chills, sore throat, nasal congestion, ear pain, tinnitus, changes in her hearing, neck pain, chest pain, palpitations, shortness of breath, cough, abdominal pain, vomiting or diarrhea. She is in your usual state of health now. Symptoms lasted less than 30 seconds and have not returned. She is asymptomatic and has no complaints at this time. PMH: Hypertension, hyperlipidemia PSH: Denies Allergies: Denies Social Hx: Denies drug, tobacco, alcohol use Allergies: Uncoded Allergies: POLLEN (Allergy, Unknown, 12/20/18) Patient History Now: No Nursing Documentation-PMH Hx Cardiac Problems: No Hx Hypertension: Yes Hx Asthma: Yes Hx COPD: No Hx Diabetes: No Hx Cancer: No Hx Gastrointestinal Problems: No Hx Dialysis: No Hx Neurological Problems: No Hx Cerebrovascular Accident: No Hx Seizures: No Review of Systems All Other Systems: negative except mentioned in HPI Physical Exam Vital Signs Date Time Temp Pulse Resp B/P (MAP) Pulse Ox O2 Delivery O2 Flow Rate FiO2 09/16/19 17:08 98.4 85 18 139/86 (103) 96 Room Air General: Awake and alert, no acute distress HEENT: NC/AT. EOMI. PERRLA. Visual thomson are full. No nystagmus. Facial expressions are symmetrical. No facial droop. Dependent membranes are pearly phillips, nonbulging, mild erythematous, clear landmarks. Uvula is midline, pharynx is not injected, no edema, no exudates. Cardiovascular: RRR. S1 and S2 normal. No murmur appreciated Resp: Normal work of breathing. No cough, wheezing or crackles appreciated Abdomen: Abdomen is soft, nondistended. Nontender Skin: Intact. No abrasions, laceration or rash over the exposed skin MSK: Normal tone and bulk. Moving all extremities. No obvious deformity. There is no drift in the upper or lower extremities bilaterally. Neuro: Awake and alert. Mentating appropriately. Facial expression symmetrical. No dysarthria, no ataxia on [id number] or [id number] testing. Sensation to light touch is intact over the upper and lower extremities. The patient has intact speech with good repetition, comprehension. Fund of knowledge is full. No aphasia, no neglect. NIH: 0 Medical Decision Making Diagnostic Impression: Primary Impression: Vertigo Additional Impression: Hypokalemia ER Course 74-year-old female presents for episode of sudden and intense vertigo currently asymptomatic. She arrives with stable vital signs and is well-appearing. NIH is 0 and she is currently asymptomatic. May be a labyrinthitis, viral syndrome , electrolyte abnormality, URI. Will obtain screening labs, EKG. Cannot induce vertigo with head motions. We will check screening labs to rule out signs of significant infection, electrolyte abnormalities. Laboratory Tests Test 09/16/19 17:50 White Blood Count 10.8 K/UL (4.8-10.8) Red Blood Count 4.75 M/UL (4.20-5.40) Hemoglobin 14.1 G/DL (12.0-16.0) Hematocrit 41.0 % (37.0-47.0) Mean Corpuscular Volume 86 FL (80-99) Mean Corpuscular Hemoglobin 29.7 PG (27.0-31.0) Mean Corpuscular Hemoglobin Concent 34.5 G/DL (32.0-36.0) Red Cell Distribution Width 11.3 % (11.6-14.8) L Platelet Count 305 K/UL (150-450) Mean Platelet Volume 6.2 FL (6.5-10.1) L Neutrophils (%) (Auto) 52.4 % (45.0-75.0) Lymphocytes (%) (Auto) 33.9 % (20.0-45.0) Monocytes (%) (Auto) 8.1 % (1.0-10.0) Eosinophils (%) (Auto) 2.2 % (0.0-3.0) Basophils (%) (Auto) 3.4 % (0.0-2.0) H Urine Color Yellow Urine Appearance Clear Urine pH 6 (4.5-8.0) Urine Specific [place] 1.020 (1.005-1.035) Urine Protein 1+ (NEGATIVE) H Urine Glucose (UA) Negative (NEGATIVE) Urine Ketones Negative (NEGATIVE) Urine Blood Negative (NEGATIVE) Urine Nitrite Negative (NEGATIVE) Urine Bilirubin Negative (NEGATIVE) Urine Urobilinogen 1 MG/DL (0.0-1.0) H Urine Leukocyte Esterase 1+ (NEGATIVE) H Urine RBC 0-2 /HPF (0 - 2) Urine WBC 2-4 /HPF (0 - 2) Urine Squamous Epithelial Cells Few /LPF (NONE/OCC) Urine Calcium Oxalate Crystals Few /LPF (NONE) Urine Bacteria Few /HPF (NONE) Urine Yeast Occasional /HPF (NONE) H Sodium Level 145 MMOL/L (136-145) Potassium Level 3.1 MMOL/L (3.5-5.1) L Chloride Level 109 MMOL/L (98-107) H Carbon Dioxide Level 28 MMOL/L (21-32) Anion Gap 8 mmol/L (5-15) Blood Urea Nitrogen 13 mg/dL (7-18) Creatinine 1.0 MG/DL (0.55-1.30) Estimate Glomerular Filtration Rate mL/min (>60) Glucose Level 92 MG/DL (74-106) Calcium Level 8.9 MG/DL (8.5-10.1) Phosphorus Level 2.6 MG/DL (2.5-4.9) Magnesium Level 2.1 MG/DL (1.8-2.4) Total Bilirubin 1.0 MG/DL (0.2-1.0) Aspartate Amino Transferase (AST) 14 U/L (15-37) L Alanine Aminotransferase (ALT) 24 U/L (12-78) Alkaline Phosphatase 64 U/L (46-116) Total Protein 6.7 G/DL (6.4-8.2) Albumin 3.5 G/DL (3.4-5.0) Globulin 3.2 g/dL Albumin/Globulin Ratio 1.1 (1.0-2.7) EKG Diagnostic Results EKG Time: 18:10 Rate: normal Rhythm: NSR ST Segments: no acute changes Other Impression Sinus rhythm, normal axis, normal intervals, no acute ST segment changes. Rhythm Strip Diag. Results Rhythm Strip Time: 18:10 EP Interpretation: yes Rate: 70s Rhythm: NSR, no PVC's, no ectopy Reevaluation Time: 18:43 Last Vital Signs Date Time Temp Pulse Resp B/P (MAP) Pulse Ox O2 Delivery O2 Flow Rate FiO2 09/16/19 17:08 98.4 85 18 139/86 (103) 96 Room Air Reevaluation Impression Labs show hypokalemia which is typical finding on the patient's blood work. She has had no recurrent episodes of vertigo or other symptoms while in the emergency department. No other findings on labs. Review of the patient's medical chart shows premolar 7 presentations in the past and she has been prescribed meclizine. She had a unremarkable CT and MRI on a prior admission. The patient's severe brief onset vertiginous symptoms are more consistent with a peripheral vertigo than a central cause. She does not want to stay in the hospital for further work-up and rather follow-up as an outpatient. We will prescribe meclizine again and she will follow-up with her PMD. We discussed reasons to return to the emergency department with patient and her daughter who is present at bedside. They understand and agree with this treatment plan will be discharged home. Disposition: HOME, SELF-CARE Condition: Stable Scripts Meclizine Hcl* (MECLIZINE*) 25 Mg Tablet 25 MG ORAL THREE TIMES A DAY PRN for for dizziness for 5 Days, #15 TAB Prov: Harmeet Rosen MD 09/16/19 Harmeet Rosen MD Sep 16, 2019 17:49
--- NOTE | 2019-09-16 17:50 | NUR ---
ED Nurse Note: Pt still on stable condition. Denied pain. Established IV site on LT AC with 20G, obtained blood specimen, sent to labs.
--- NOTE | 2019-09-16 18:00 | NUR ---
ED Nurse Note: Pt on bed, on stable condition, daughter on bedside. EKG done.
--- NOTE | 2019-09-16 18:01 | NUR ---
ED Nurse Note: Started Pt on Iv hydration on IV site; intact, patent and infusing well. VSS, denies pain.
[2019-09-16 18:15] VITALS: BP 116/58
[2019-09-16 18:21] LABS: ANION GAP 8 mmol/L (5-15); APPEARANCE,URINE CLEAR; BASOPHILS % (AUTO) 3.4 % (0.0-2.0); BILIRUBIN, URINE NEGATIVE (NEGATIVE); BLOOD UREA NITROGEN 13 mg/dL (7-18); CALCIUM 8.9 MG/DL (8.5-10.1); CARBON DIOXIDE 28 MMOL/L (21-32); CHLORIDE 109 MMOL/L (98-107); EOSINOPHILS % (AUTO) 2.2 % (0.0-3.0); GLUCOSE, URINE (UA) NEGATIVE (NEGATIVE); HEMOGLOBIN 14.1 G/DL (12.0-16.0); KETONES,URINE NEGATIVE (NEGATIVE); LEUKOCYTE ESTERASE ,URINE 1+ (NEGATIVE); LYMPHOCYTES % (AUTO) 33.9 % (20.0-45.0); MEAN CORPUSCULAR VOLUME 86 FL (80-99); MONOCYTES % (AUTO) 8.1 % (1.0-10.0); NEUTROPHILS % (AUTO) 52.4 % (45.0-75.0); NITRITE,URINE NEGATIVE (NEGATIVE); PH,URINE 6 (4.5-8.0); PLATELET COUNT 305 K/UL (150-450); POTASSIUM 3.1 MMOL/L (3.5-5.1); PROTEIN,URINE 1+ (NEGATIVE); RED BLOOD COUNT 4.75 M/UL (4.20-5.40); RED CELL DISTRIBUTION WIDTH 11.3 % (11.6-14.8); SODIUM 145 MMOL/L (136-145); UROBILINOGEN,URINE 1 MG/DL (0.0-1.0); WHITE BLOOD COUNT 10.8 K/UL (4.8-10.8)
[2019-09-16 18:22] LABS: COLOR,URINE YELLOW
[2019-09-16 18:25] LABS: ALANINE AMINOTRANSFERASE 24 U/L (12-78); ALBUMIN 3.5 G/DL (3.4-5.0); ALBUMIN/GLOBULIN RATIO 1.1 (1.0-2.7); ALKALINE PHOSPHATASE 64 U/L (46-116); ASPARTATE AMINO TRANSFERASE 14 U/L (15-37); PHOSPHORUS 2.6 MG/DL (2.5-4.9)
[2019-09-16] MEDS ORDERED: MECLIZINE HCL25 MG ORAL (18:41)
[2019-09-16 19:08] VITALS: BP 118/60
--- NOTE | 2019-09-16 19:08 | NUR ---
ED Nurse Note: Pt cleared by health care Provider for discharge. DC instructions/prescription was given and explained to pt and verbalized understanding of teachings. All medical deviecs such as ID band removed. Pt is AAO x4, ambulatory and left with all personal belongings and with daughter.
--- NOTE | 2019-09-17 15:22 | Cardiology Report ---
APPROVED REPORT EKG Measurement Heart [id number] Normal sinus rhythm Moderate voltage criteria for LVH, may be normal variant Borderline ECG
== END 2019-09-16 19:08 | disposition home or self-care (01) ==
LOC: EMR 17:56
DX: R42 Dizziness and giddiness (principal); E87.6 Hypokalemia; E78.5 Hyperlipidemia, unspecified; I10 Essential (primary) hypertension
CPT/HCPCS: 36415; 80053; 81003; 83735; 84100; 85025; 87086; 93005; 96360; 99284

== ENCOUNTER 2020-11-29 10:06 | Emergency (ER) | payer MEDICARE ==
[~2020-11-29] VITALS: Ht 170.2 cm; Wt 85.7 kg
--- NOTE | 2020-11-29 10:42 | Emergency Room Report ---
History of Present Illness General Chief Complaint: Dizziness Source: Patient Present Illness HPI Patient is a 75-year-old female past medical history of hypertension and hyperlipidemia on daily baby aspirin who presents to the ER complaining of unsteady gait. She states that since yesterday she has felt unsteady and feels like she needs to hold onto things to be able to walk. She denies any history of stroke. She denies any head trauma. She denies any blurry vision or slurred speech. She denies any focal weakness. She denies any history of similar symptoms in the past. She does not report a room spinning sensation she states that she feels unsteady on her feet. She has had vertigo in the past and states this feels different than vertigo for her. 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 Patient History Reviewed Nursing Documentation: PMH: Agreed; PSxH: Agreed Nursing Documentation-PMH Past Medical History: No History, Except For Hx Cardiac Problems: No Hx Hypertension: Yes - high cholesterol Hx Asthma: Yes Hx COPD: No Hx Diabetes: No Hx Cancer: No Hx Gastrointestinal Problems: No Hx Dialysis: No Hx Neurological Problems: No Hx Cerebrovascular Accident: No Hx Seizures: No Review of Systems All Other Systems: negative except mentioned in HPI Physical Exam Vital Signs Date Time Temp Pulse Resp B/P (MAP) Pulse Ox O2 Delivery O2 Flow Rate FiO2 11/29/20 10:19 98.2 98 16 116/73 (87) 94 Room Air Sp02 EP Interpretation: reviewed, normal General Appearance: no apparent distress, alert, GCS 15, non-toxic Head: normocephalic, atraumatic Eyes: bilateral eye normal inspection, bilateral eye PERRL ENT: hearing grossly normal, normal pharynx, no angioedema, normal voice Neck: full range of motion, supple/symm/no masses Respiratory: chest non-tender, lungs clear, normal breath sounds, speaking full sentences Cardiovascular #1: regular rate, rhythm, no edema Gastrointestinal: normal bowel sounds, non tender, soft, non-distended, no guarding, no rebound Rectal: deferred Musculoskeletal: normal range of motion, no calf tenderness, no lower extremity edema Neurologic: motor strength/tone normal, oil lease operator III-XII nml as tested, oriented x3, sensory intact, responsive, abnormal gait Psychiatric: no suicidal/homicidal ideation Skin: no rash Lymphatic: no adenopathy Procedures Critical Care Time Critical Care Time Laboratory Tests Test 11/29/20 10:33 11/29/20 10:41 Urine Color Pale yellow Urine Appearance Clear Urine pH 6 (4.5-8.0) Urine Specific [place] 1.015 (1.005-1.035) Urine Protein Negative (NEGATIVE) Urine Glucose (UA) Negative (NEGATIVE) Urine Ketones Negative (NEGATIVE) Urine Blood 1+ (NEGATIVE) H Urine Nitrite Negative (NEGATIVE) Urine Bilirubin Negative (NEGATIVE) Urine Urobilinogen Normal MG/DL (0.0-1.0) Urine Leukocyte Esterase Negative (NEGATIVE) Urine RBC 0-2 /HPF (0 - 2) Urine WBC 0-2 /HPF (0 - 2) Urine Squamous Epithelial Cells Occasional /LPF Urine Bacteria Occasional /HPF (NONE) White Blood Count 11.6 K/UL (4.8-10.8) H Red Blood Count 4.88 M/UL (4.20-5.40) Hemoglobin 14.2 G/DL (12.0-16.0) Hematocrit 44.6 % (37.0-47.0) Mean Corpuscular Volume 91 FL (80-99) Mean Corpuscular Hemoglobin 29.0 PG (27.0-31.0) Mean Corpuscular Hemoglobin Concent 31.8 G/DL (32.0-36.0) L Red Cell Distribution Width 13.9 % (11.6-14.8) Platelet Count 353 K/UL (150-450) Mean Platelet Volume 6.8 FL (6.5-10.1) Neutrophils (%) (Auto) 46.6 % (45.0-75.0) Lymphocytes (%) (Auto) 40.7 % (20.0-45.0) Monocytes (%) (Auto) 9.0 % (1.0-10.0) Eosinophils (%) (Auto) 1.5 % (0.0-3.0) Basophils (%) (Auto) 2.2 % (0.0-2.0) H Prothrombin Time 10.9 SEC (9.30-11.50) Prothrombin Time INR 1.0 (0.9-1.1) Activated Partial Thromboplast Time 21 SEC (23-33) L Sodium Level 144 MMOL/L (136-145) Potassium Level 3.3 MMOL/L (3.5-5.1) L Chloride Level 107 MMOL/L (98-107) Carbon Dioxide Level 28 MMOL/L (21-32) Anion Gap 9 mmol/L (5-15) Blood Urea Nitrogen 17 mg/dL (7-18) Creatinine 1.1 MG/DL (0.55-1.30) Estimated Glomerular Filtration Rate 58.8 mL/min (>60) Glucose Level 109 MG/DL (74-106) H Lactic Acid Level 2.00 mmol/L (0.4-2.0) Calcium Level 9.6 MG/DL (8.5-10.1) Magnesium Level 2.4 MG/DL (1.8-2.4) Total Bilirubin 1.6 MG/DL (0.2-1.0) H Direct Bilirubin 0.3 MG/DL (0.0-0.3) Aspartate Amino Transferase (AST) 13 U/L (15-37) L Alanine Aminotransferase (ALT) 21 U/L (12-78) Alkaline Phosphatase 72 U/L (46-116) Troponin I 0.002 ng/mL (0.000-0.056) Pro-B-Type Natriuretic Peptide 25 pg/mL (0-125) Total Protein 7.1 G/DL (6.4-8.2) Albumin 3.6 G/DL (3.4-5.0) Globulin 3.5 g/dL Albumin/Globulin Ratio 1.0 (1.0-2.7) Medical Decision Making Diagnostic Impression: Primary Impression: CVA (cerebral vascular accident) Additional Impression: Hypokalemia ER Course Patient CT demonstrates right thalamic infarct MRI has been ordered. No evidence of intracranial hemorrhage. Patient given aspirin. Patient mildly hypokalemic with potassium 3.3. Patient given IV potassium chloride. Patient will be admitted for further treatment and evaluation. Patient is not a TPA candidate as her symptoms started 24 hours ago. Laboratory Tests Test 11/29/20 10:33 11/29/20 10:41 Urine Color Pale yellow Urine Appearance Clear Urine pH 6 (4.5-8.0) Urine Specific [place] 1.015 (1.005-1.035) Urine Protein Negative (NEGATIVE) Urine Glucose (UA) Negative (NEGATIVE) Urine Ketones Negative (NEGATIVE) Urine Blood 1+ (NEGATIVE) H Urine Nitrite Negative (NEGATIVE) Urine Bilirubin Negative (NEGATIVE) Urine Urobilinogen Normal MG/DL (0.0-1.0) Urine Leukocyte Esterase Negative (NEGATIVE) Urine RBC 0-2 /HPF (0 - 2) Urine WBC 0-2 /HPF (0 - 2) Urine Squamous Epithelial Cells Occasional /LPF Urine Bacteria Occasional /HPF (NONE) White Blood Count 11.6 K/UL (4.8-10.8) H Red Blood Count 4.88 M/UL (4.20-5.40) Hemoglobin 14.2 G/DL (12.0-16.0) Hematocrit 44.6 % (37.0-47.0) Mean Corpuscular Volume 91 FL (80-99) Mean Corpuscular Hemoglobin 29.0 PG (27.0-31.0) Mean Corpuscular Hemoglobin Concent 31.8 G/DL (32.0-36.0) L Red Cell Distribution Width 13.9 % (11.6-14.8) Platelet Count 353 K/UL (150-450) Mean Platelet Volume 6.8 FL (6.5-10.1) Neutrophils (%) (Auto) 46.6 % (45.0-75.0) Lymphocytes (%) (Auto) 40.7 % (20.0-45.0) Monocytes (%) (Auto) 9.0 % (1.0-10.0) Eosinophils (%) (Auto) 1.5 % (0.0-3.0) Basophils (%) (Auto) 2.2 % (0.0-2.0) H Prothrombin Time 10.9 SEC (9.30-11.50) Prothrombin Time INR 1.0 (0.9-1.1) Activated Partial Thromboplast Time 21 SEC (23-33) L Sodium Level 144 MMOL/L (136-145) Potassium Level 3.3 MMOL/L (3.5-5.1) L Chloride Level 107 MMOL/L (98-107) Carbon Dioxide Level 28 MMOL/L (21-32) Anion Gap 9 mmol/L (5-15) Blood Urea Nitrogen 17 mg/dL (7-18) Creatinine 1.1 MG/DL (0.55-1.30) Estimated Glomerular Filtration Rate 58.8 mL/min (>60) Glucose Level 109 MG/DL (74-106) H Lactic Acid Level 2.00 mmol/L (0.4-2.0) Calcium Level 9.6 MG/DL (8.5-10.1) Magnesium Level 2.4 MG/DL (1.8-2.4) Total Bilirubin 1.6 MG/DL (0.2-1.0) H Direct Bilirubin 0.3 MG/DL (0.0-0.3) Aspartate Amino Transferase (AST) 13 U/L (15-37) L Alanine Aminotransferase (ALT) 21 U/L (12-78) Alkaline Phosphatase 72 U/L (46-116) Troponin I 0.002 ng/mL (0.000-0.056) Pro-B-Type Natriuretic Peptide 25 pg/mL (0-125) Total Protein 7.1 G/DL (6.4-8.2) Albumin 3.6 G/DL (3.4-5.0) Globulin 3.5 g/dL Albumin/Globulin Ratio 1.0 (1.0-2.7) EKG Diagnostic Results Troponin ordered: Yes When was troponin ordered?: Nov 29, 2020 EKG Time: 10:38 EP Interpretation: Michelle Ruiz MD Rate: normal - 87 bpm Rhythm: NSR ST Segments: no acute changes ASA given to the pt in ED: No Rhythm Strip Diag. Results Rhythm Strip Time: 10:42 EP Interpretation: yes - Michelle Ruiz MD Rate: 88 bpm Rhythm: NSR, no PVC's, no ectopy Chest X-Ray Diagnostic Results Chest X-Ray Diagnostic Results : Chest X-Ray Ordered: Yes # of Views/Limited/Complete: 1 View Indication: Other - dizzy EP Interpretation: Yes Interpretation: no consolidation, no effusion, no pneumothorax, no acute cardiopulmonary disease Impression: No acute disease Electronically Signed by: Michelle Ruiz MD Last Vital Signs Date Time Temp Pulse Resp B/P (MAP) Pulse Ox O2 Delivery O2 Flow Rate FiO2 11/29/20 10:19 98.2 98 16 116/73 (87) 94 Room Air Disposition: ADMITTED INPATIENT - telemetry Condition: Serious Physician Consult: Dr. Garth MD Additional Instructions: Please note that this report is being documented using [employer] technology. This can lead to erroneous entry secondary to incorrect interpretation by the dictating instrument. Michelle Ruiz M.D. Nov 29, 2020 10:42
[2020-11-29 10:48] LABS: APPEARANCE,URINE CLEAR; BILIRUBIN, URINE NEGATIVE (NEGATIVE); COLOR,URINE PALE YELLOW; GLUCOSE, URINE (UA) NEGATIVE (NEGATIVE); KETONES,URINE NEGATIVE (NEGATIVE); LEUKOCYTE ESTERASE ,URINE NEGATIVE (NEGATIVE); NITRITE,URINE NEGATIVE (NEGATIVE); PH,URINE 6 (4.5-8.0); PROTEIN,URINE NEGATIVE (NEGATIVE); UROBILINOGEN,URINE NORMAL MG/DL (0.0-1.0)
[2020-11-29 11:10] LABS: BASOPHILS % (AUTO) 2.2 % (0.0-2.0); EOSINOPHILS % (AUTO) 1.5 % (0.0-3.0); HEMATOCRIT 44.6 % (37.0-47.0); HEMOGLOBIN 14.2 G/DL (12.0-16.0); LYMPHOCYTES % (AUTO) 40.7 % (20.0-45.0); MEAN CORPUSCULAR VOLUME 91 FL (80-99); NEUTROPHILS % (AUTO) 46.6 % (45.0-75.0); PLATELET COUNT 353 K/UL (150-450); RED BLOOD COUNT 4.88 M/UL (4.20-5.40); RED CELL DISTRIBUTION WIDTH 13.9 % (11.6-14.8); WHITE BLOOD COUNT 11.6 K/UL (4.8-10.8)
[2020-11-29 11:20] LABS: CALCIUM 9.6 MG/DL (8.5-10.1); CREATININE 1.1 MG/DL (0.55-1.30); POTASSIUM 3.3 MMOL/L (3.5-5.1)
--- NOTE | 2020-11-29 11:30 | Diagnostic Imaging Report ---
Indication: Reason For Exam: DIZZY Technique: Continuous helical CT scanning of the head was performed without intravenous contrast material. Axial and coronal 5 mm sections were generated. Dose: Total Dose Length Product - DLP [address] Dose Index - CTDIvol(s) 53.40 mGy. Automated exposure control was utilized for dose reduction. Comparison: 09/03/2017 Findings: There is mild prominence of cortical sulci and the ventricular system. Periventricular and subcortical white matter low density is noted. There is a focal area of low-density seen in the right thalamus with some adjacent minimal increased density. There is no shift of midline structures. No abnormal extra-axial fluid collections are noted. There is no evidence of intracerebral bleeding. No other abnormal high or low density areas are noted within the brain. Impression: Mild atrophy. Chronic small vessel white matter ischemic change. Focal area of abnormality in the right thalamus. Possibility of a small infarct to BE considered. Further evaluation with MRI would be helpful. The CT scanner at [facility] is accredited by the [employer] and the scans are performed using protocols designed to limit radiation exposure to as low as reasonably achievable to attain images of sufficient resolution adequate for diagnostic evaluation.
[2020-11-29 11:31] LABS: ALBUMIN 3.6 G/DL (3.4-5.0); BILIRUBIN,TOTAL 1.6 MG/DL (0.2-1.0)
[2020-11-29 11:41] LABS: BILIRUBIN,DIRECT 0.3 MG/DL (0.0-0.3)
--- NOTE | 2020-11-29 12:48 | NUR ---
patient enroute to MRI
--- NOTE | 2020-11-29 13:29 | Diagnostic Imaging Report ---
Indication: Chest pain, cough Technique: XRAY Chest 1v Comparison: 08/11/2019 Findings: Heart size and mediastinal contours are stable. Again described calcifications noted in a tortuous aorta. Slight elevation of the left hemidiaphragm. There is no focal airspace consolidation or no pleural effusion, pneumothorax or radiographic evidence to suggest pulmonary edema. No acute osseous abnormality. IMPRESSION: No radiographic evidence of acute cardiopulmonary disease.
--- NOTE | 2020-11-29 14:00 | NUR ---
Patient presents to the ER with c/o unsteady gait which started yesterday. She reported that she felt unsteady to the point that she had to hold on to things to be able to walk. She has a past medical hx of HTN and hyperlipidemia. Denies stroke history and head trauma. Denies having similar symptoms in the past but has had vertiog which she stated does not feel like this.
--- NOTE | 2020-11-29 14:10 | Diagnostic Imaging Report ---
Indication: Dizziness, gait alteration Technique: MRI the brain performed utilizing T1 sagittal, T2 axial, T1 FLAIR axial, T2 FLAIR axial, T2*GRE and diffusion axial images without gadolinium. Comparison: Correlation made to concurrent noncontrast CT of the head. Comparison also made to MRI of the brain 09/04/2017 Findings: No diffusion abnormalities are seen on diffusion weighted imaging to suggest acute infarct. No evidence of acute intracranial hemorrhage. The sulci, ventricles and cisterns are prominent consistent with atrophy. Periventricular and supratentorial white matter T2 hyperintensity are seen without mass effect. There is no shift of midline structures. No significant extra-axial collections of fluid or blood are demonstrated. Visualized mastoid air cells are clear. Mucosal thickening noted in the paranasal sinuses. No focal bony calvarium or soft tissue lesions are seen. IMPRESSION: No acute intracranial abnormality. Specifically, no evidence of acute infarct. Abnormality questioned on noncontrast head CT likely artifactual. Atrophy. Bilateral white matter T2 hyperintensities without mass effect, most commonly related to chronic microvascular ischemic changes. Demyelinating disease is another possibility. Please correlate clinically.
--- NOTE | 2020-11-29 19:35 | NUR ---
ED Nurse Note: Pt is being held over-night in ED. Switched pt's to inpt bed. Pt has no new needs at this time.
[2020-11-29] MEDS ORDERED: Milk of Magnesia 30ml Ud ORAL PRN (20:00)
[2020-11-29] MEDS ORDERED: Nitroglycerin Subl 0.4mg tab SL PRN (20:00)
[2020-11-29 20:30] VITALS: BP 120/71
[2020-11-29] MEDS: Heparin 5000 units/ml inj SUBQ SCH (21:00)
--- NOTE | 2020-11-29 21:06 | NUR ---
ED Nurse Note: Pt refused 2100 heparin dose. Reports she does not want to start 'those blood thinners' and that she already takes asprin. Advised pt she is in the hospital and due to her current condition it is advised that she allows me to administer the heparin. Pt reports she understands, but does not want it.
--- NOTE | 2020-11-29 21:08 | NUR ---
ED Nurse Note: Pt ambulated to bathroom, placed back on monitoring analyst, no new needs identified at this time.
--- NOTE | 2020-11-29 21:29 | History and Physical Report ---
DATE OF ADMISSION: 11/29/2020 CHIEF COMPLAINT/REASON FOR HOSPITALIZATION: Patient is a 75-year-old lady admitted with a history of some dizziness and unsteady gait. HISTORY OF PRESENT ILLNESS: Patient's symptoms started about 24 hours ago and she complains of having to hold on something when she walks and feeling like she might fall, so slight dizziness and lightheadedness, but no spinning or whirling. The patient does not use a walker or a cane at home and usually walks independently. There is no history of CVA and CT scan and MRI of the brain were done from the emergency room showing no evidence of any acute infarct, but there was some atrophy and likely chronic microvascular ischemic changes. The patient apparently has a history of hypertension. On prior hospitalization , she was noted to have a history of atrial flutter. There is also history of a lung mass and I believe she had a VATS procedure at another hospital that was benign. The patient is a poor historian. She also has a history of what she states is severe runny nose and congestion for which she takes the course of prednisone for about 3 days and she took the first day of the course on 11/28/2020. She has had dizziness in the past, but not currently. She also does use ibuprofen intermittently, but not for the past week. ALLERGIES: She stated she is allergic to pollen. SURGERIES: She denies any surgeries, but prior charts have listed a VATS procedure. MEDICATIONS: Include aspirin 81 mg daily, diltiazem 180 mg daily, pravastatin 20 mg daily, but it also states 40 mg, unclear. Old medications apparently not currently taking include albuterol inhalation, albuterol inhaler, Plavix, diclofenac, levofloxacin, meclizine, meloxicam, methylprednisolone, Tamiflu, and promethazine which she does not take those. She uses ibuprofen 800 mg on a p.r.n. basis, but no on a regular medications. HABITS: She smoked as a teenager and quit. No alcohol or drugs. SYSTEM REVIEW: HEAD, EYES, EARS, NOSE, AND THROAT: No known glaucoma or cataracts. Vision and hearing is generally good. There is no tinnitus. PULMONARY: History of prior congestion, which she states is mostly nasal congestion, but she has been treated for bronchitis and wheezing and has had multiple courses of steroids in the past. History of lung mass. No recurrence. Apparently was benign. CARDIAC: No angina or OR. No chronic leg edema. GASTROINTESTINAL: No GI bleeding or ulcers. No recent nausea, vomiting, diarrhea, hematochezia or melena. GENITOURINARY: No dysuria or hematuria. NEUROLOGIC: No focal CVA. No seizures. PHYSICAL EXAMINATION: GENERAL: She is an obese alert lady, seen in the emergency room, in no acute distress. VITAL SIGNS: Temperature 98.2, pulse 98, respirations 16, blood pressure 116/73, O2 saturation 94. HEAD, EYES, EARS, NOSE, AND THROAT: Sclerae are nonicteric. Ocular motions intact in all directions. Oral mucosa moist. NECK: No adenopathy or thyroid enlargement. LUNGS: Clear. HEART: Rhythm is regular. I hear no murmur or gallop. ABDOMEN: Soft without organomegaly or masses. EXTREMITIES: No edema, cyanosis, or clubbing. Degenerative changes in the knees. NEUROLOGIC: She is alert and oriented. Cranial nerves are intact. Plantar showed no response. There is no ataxia. The patient's gait is not tested at this time because I did not have staff to assist me and she was in the emergency room. This will be checked later. EKG shows normal sinus rhythm. No acute changes. IMPRESSION: Recent onset of dizziness and unsteady gait. Etiology could be again paroxysmal arrhythmias. She has had a history of atrial flutter in the past. She could have orthostatic hypotension. She is on diltiazem, which can cause that. Could be a component of labyrinthitis as well in the differential diagnosis. It does not appear she has an acute stroke. PLAN: We will admit her to telemetry unit. Monitor for any cardiac dysrhythmias. Check orthostatic blood pressures and observe her response to these measures. Followup labs noted. Labs are significant for mildly low potassium and mild white count elevation and the potassium will be repleted and we will observe for any evidence of infection, which does not appear apparent. The white count elevation could be due to steroids. Tone Liang M.D. DR: SAUNDRA :48 JOB#: [id number] CC:
[2020-11-30] VITALS (7 sets, daily range): BP systolic 85–123; BP diastolic 56–74
--- NOTE | 2020-11-30 00:32 | NUR ---
ED Nurse Note: Pt is sleeping, responds to verbal commands, no new needs identified at this time.
--- NOTE | 2020-11-30 02:24 | NUR ---
ED Nurse Note: Pt is resting. No new needs identified at this time.
--- NOTE | 2020-11-30 04:41 | NUR ---
ED Nurse Note: Pt is resting, no new needs identified at this time.
--- NOTE | 2020-11-30 05:07 | NUR ---
ED Nurse Note: Labs drawn and sent.
[2020-11-30 05:44] LABS: BASOPHILS % (AUTO) 1.9 % (0.0-2.0); EOSINOPHILS % (AUTO) 2.6 % (0.0-3.0); HEMATOCRIT 43.3 % (37.0-47.0); HEMOGLOBIN 13.8 G/DL (12.0-16.0); LYMPHOCYTES % (AUTO) 39.1 % (20.0-45.0); MEAN CORPUSCULAR VOLUME 92 FL (80-99); MONOCYTES % (AUTO) 8.2 % (1.0-10.0); NEUTROPHILS % (AUTO) 48.2 % (45.0-75.0); PLATELET COUNT 296 K/UL (150-450); RED BLOOD COUNT 4.71 M/UL (4.20-5.40); RED CELL DISTRIBUTION WIDTH 13.5 % (11.6-14.8); WHITE BLOOD COUNT 10.5 K/UL (4.8-10.8)
[2020-11-30 06:16] LABS: ALANINE AMINOTRANSFERASE 20 U/L (12-78); ALBUMIN 3.4 G/DL (3.4-5.0); ALKALINE PHOSPHATASE 62 U/L (46-116); ANION GAP 7 mmol/L (5-15); ASPARTATE AMINO TRANSFERASE 14 U/L (15-37); BILIRUBIN,TOTAL 1.8 MG/DL (0.2-1.0); BLOOD UREA NITROGEN 13 mg/dL (7-18); CALCIUM 9.4 MG/DL (8.5-10.1); CARBON DIOXIDE 28 MMOL/L (21-32); CHLORIDE 110 MMOL/L (98-107); CHOLESTEROL 220 MG/DL (< 200); HDL CHOLESTEROL 76 MG/DL (40-60); POTASSIUM 3.9 MMOL/L (3.5-5.1); SODIUM 145 MMOL/L (136-145); TRIGLYCERIDES 115 MG/DL (30-150)
--- NOTE | 2020-11-30 06:48 | NUR ---
ED Nurse Note: Pt is sleeping, responds to verbal command. No new needs identified at this time.
--- NOTE | 2020-11-30 08:30 | NUR ---
Orthostatic blood pressures completed. No new needs identified at this time. Patient is resting comfortably in bed at this time.
[2020-11-30] MEDS ORDERED: dilTIAZem HCl 90mg tab ONE (08:58)
[2020-11-30] MEDS ORDERED: Aspirin EC 81mg tab ORAL SCH (09:00)
[2020-11-30] MEDS: Heparin 5000 units/ml inj SUBQ SCH (09:00)
[2020-11-30] MEDS ORDERED: dilTIAZem HCl ER 180mg cap ORAL SCH (09:00)
--- NOTE | 2020-11-30 09:05 | NUR ---
Cardizem 180mg held due to low blood pressure- 85/56
--- NOTE | 2020-11-30 12:10 | NUR ---
Spoke with Dr Liang re: patient's desire to go home. Spoke with with physical therapy for evaluation. Per MD: I will be in the ER and will further assess for discharge.
--- NOTE | 2020-12-01 02:29 | Discharge Summary ---
DATE OF ADMISSION: 11/29/2020 DATE OF DISCHARGE: 11/30/2020 PERTINENT HISTORY: The patient is a 75-year-old lady who presents with dizziness and lightheadedness, afraid to walk if she might fall, some unsteadiness. PERTINENT PHYSICAL FINDINGS: See my dictated H and P. LUNGS: Clear. HEART: Regular rhythm. No murmur. ABDOMEN: Soft without organomegaly. EXTREMITIES: No edema. NEUROLOGIC: She is alert and oriented. No focal findings. No ataxia. COURSE IN THE HOSPITAL: The patient was in sinus rhythm. We continued her diltiazem, which she had been taking as she had paroxysmal atrial flutter a few years ago on hospitalization here. The following morning, she had no abnormal symptoms, was able to ambulate independently. No dizziness or weakness. Her blood pressure was low normal. Heart rate was normal. There were no arrhythmias. Note that she did have a brain MRI, which showed some atrophy and no acute intracranial abnormality. Most likely, microvascular ischemic changes. There were no focal weakness. She was ambulatory. She was discharged home in stable condition. She had mild orthostatic blood pressure and she was instructed to get up slowly rising from a bed or a chair. She was also instructed to follow up primary care physician is not on staff in this hospital within a week and reassess blood pressure and medications. FINAL DIAGNOSES: 1. Gait disorder, improved. 2. Low normal blood pressure. 3. History of paroxysmal atrial flutter. 4. Dizziness and lightheadedness, resolved. 5. Mild hypokalemia, resolved. DISCHARGE DISPOSITION: Home as above. Follow up with her primary care physician. MEDICATIONS: Per the discharge medication list. Tone Liang M.D. DR: Kelly JOB#: [id number] CC:
--- NOTE | 2020-12-03 14:16 | Cardiology Report ---
APPROVED REPORT EKG Measurement Heart [id number] ID [id number] <Conclusion> Normal sinus rhythm Minimal voltage criteria for LVH, may be normal variant Borderline ECG
== END 2020-11-30 18:00 | disposition home or self-care (01) ==
LOC: EMR 13:12 → UNDOADMIN 13:22 → 2W 13:22 → EDBEDREQ 11-30 04:52 → EMR 11-30 18:00
DX: I63.9 Cerebral infarction, unspecified (principal); E87.6 Hypokalemia; I10 Essential (primary) hypertension; Z79.82 Long term (current) use of aspirin; E78.00 Pure hypercholesterolemia, unspecified; Z79.02 Long term (current) use of antithrombotics/antiplatelets; Z87.891 Personal history of nicotine dependence; E66.9 Obesity, unspecified
CPT/HCPCS: 36415; 70450; 70551; 71045; 80053; 80061; 81003; 82248; 83605; 83735; 83880; 84443; 84484; 85025; 85610; 85730; 93005; 96365; 99291; J8499